=== PATIENT | female | born 1955 | race Caucasian/White ===

== ENCOUNTER 2023-06-23 08:22 | Outpatient (AMB) | payer MEDICARE, OTHER, SELFPAY ==
--- NOTE | 2023-06-23 08:27 | A.OFFVIS_ITS ---
Intake Vital Signs 06/23/23 08:29 Height 5 ft 6 in Weight 149 lb 7.574 oz BMI 24.1 BP 140/82 H Blood Pressure Location Rt brachial Position Sitting Pulse 69 Pulse Source Pulse Oximeter Temp 97.4 F Temp Source Skin Pulse Oximetry (%) 96 Oxygen Delivery Method Room Air Intake Visit Reasons: RA Intake Note: New pt presents today for RA consult. Previously seen by MEGAN and Kristopher Austin. Insurance Healthcare Consultant Required: No Accompanied by: Self / Same As Patient Allergies Bee Stings Adverse Reaction (Unknown, Uncoded 06/23/23 08:32) Swelling Medication List - Last Reconciled 06/23/23 by Golden Ling MD Humira(CF) Pen (adalimumab) 40 mg (0.4 mL) subcut Q2W NS ibandronate 150 mg PO Q30D ibuprofen 600 mg PO Q8H PRN levothyroxine 75 mcg PO DAILY lisinopril 20 mg PO DAILY sertraline mg PO silver sulfadiazine 1% appl topical BID HPI HPI Comments History of Present Illness Details This is a 68-year-old female with rheumatoid arthritis who presents as a new patient. Her previous member of the legislative assembly left the practice. Patient states that she was [place] [address] Keyes. Symptoms started with pain, stiffness of her wrists, knuckles, ankles, neck and elbows. Stated that she was on hydroxychloroquine for 1-2 years and it was ineffective. Per patient she was briefly on methotrexate, states that she was also very briefly on it, she could not take it due to regular alcohol consumption as well as possible side effects. She has been on Humira since approximately 2016 with good effect. Today patient states that she feels well overall with no joint pain, stiffness or swelling. Compliant with Humira 40 mg every other week. States that she was diagnosed with osteoporosis a few years ago and has been on Boniva for 3-4 years. She denies any fevers, weight change, cough or shortness of breath. She smoked socially for 2-3 years in her late 20s. Patient is unaware of any family history of an autoimmune rheumatic disease. 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 Female Reproductive History Menstrual Total pregnancies: 4 Number of Living Children: 2 Ab spontaneous: 2 Review of Systems Const Reports fatigue, Denies fever(s), Reports headache(s) and Denies weight loss Eyes Reports dry eyes and Reports itchy eyes ENT Reports headache(s) GI Reports heartburn Musc Denies stiffness Neuro Reports headache(s) Psych Reports anxiety Endo Reports fatigue Aller/Immun Reports itchy eyes Physical Exam Vital Signs: Last Vital Signs Temp 97.4 F 06/23/23 08:29 Pulse 69 06/23/23 08:29 BP 140/82 H 06/23/23 08:29 Pulse Ox 96 06/23/23 08:29 Oxygen Delivery Method Room Air 06/23/23 08:29 BMI result Body Mass Index 24.1 Const General: cooperative, healthy appearing and comfortable Nutritional Appearance: average body habitus Orientation/consciousness: patient oriented x3 Limitations: no limitations HEENT Head: Yes normocephalic and Yes atraumatic Mouth: moist mucous membranes Resp Effort & Inspection: normal respiratory effort and able to speak in complete sentences Auscultation: clear to auscultation bilaterally Cardio Rate: regular rate Rhythm: regular rhythm GI Inspection: No distended Palpation (GI): Soft to palpation and nontender Skin General skin exam: no rashes or lesions noted Neuro General: patient oriented x3 Extrem Other: Osteoarthritic changes of both hands with no active synovitis Mild synovial thickening of left 1st MCP hand right 3rd MCP without active synovitis Mild ulnar deviation of right hand fingers at the MCP joint Few hammertoes of the right foot Assessment & Plan Assessment & Plan (1) Rheumatoid arthritis: Comment: Serology unknown dx 2009 HCQ 1-2 years ineffective MTX briefly (unclear what happened) Humira since 2016, effective Code(s): M06.9 - Rheumatoid arthritis, unspecified Qualifiers: Rheumatoid arthritis location: multiple sites Rheumatoid factor presence: unspecified presence Qualified Code(s): M06.9 - Rheumatoid arthritis, unspecified Plan: This is a 68-year-old female with rheumatoid arthritis who presents as a new patient. Her previous member of the legislative assembly left the practice. Patient is doing well on Humira 40 mg every other week Continue Humira 40 mg every other week. Refilled. Check labs today. Follow-up in 3 months (2) Immunization counseling: Code(s): Z71.85 - Encounter for immunization safety counseling Plan: Patient states that she received the most recent COVID booster. She will schedule her flu vaccine for this season (3) Osteoporosis: Code(s): M81.0 - Age-related osteoporosis without current pathological fracture Qualifiers: Osteoporosis type: age-related Presence of current pathological fracture: without current pathological fracture Qualified Code(s): M81.0 - Age- related osteoporosis without current pathological fracture Plan: Per patient she has been on Boniva for the last 3-4 years. Needs refills Boniva 150 mg monthly refilled. Will request DEXA scans from patient's PCP Plan I spent 47 minutes reviewing patient's chart, evaluating patient, ordering diagnostic workup, counseling patient and documenting in the chart Orders: Orders Complete Blood Count Auto Diff Today M06.9 - Rheumatoid arthritis, unspecified Comprehensive Met. Panel Today M06.9 - Rheumatoid arthritis, unspecified C Reactive Protein Today M06.9 - Rheumatoid arthritis, unspecified Erythrocyte Sedimentation Rate Today M06.9 - Rheumatoid arthritis, unspecified Rheumatoid Factor Today M06.9 - Rheumatoid arthritis, unspecified Hepatitis A,B,C Profile Today Z11.59 - Encounter for screening for other viral diseases T Spot TB Today Z11.7 - Encounter for testing for latent tuberculosis infection Cyclic Citrullinated Peptide Today M06.9 - Rheumatoid arthritis, unspecified Medications: New Humira(CF) Pen (adalimumab) 40 mg (0.4 mL) subcut Q2W 2 ea 2RF NS ibandronate 150 mg PO Q30D 3 tabs 1RF Coding Level of Care Code New Pt Level 4 (77528) Diagnoses Rheumatoid arthritis involving multiple sites, unspecified whether rheumatoid factor present M06.9 Rheumatoid arthritis location: multiple sites Rheumatoid factor presence: unspecified presence Immunization counseling Z71.85 Age-related osteoporosis without current pathological fracture M81.0 Osteoporosis type: age-related Presence of current pathological fracture: without current pathological fracture
[2023-06-23 08:29] VITALS: BP 140/82; PULSE 69; TEMP 36.3; O2SAT 96; BMI 24.1
== END 2023-06-23 09:07 | disposition home or self-care (01) ==
PROVIDERS: PCP Family Medicine; Visit Provider Student in an Organized Health Care Education/Training Program
DX: M06.9 Rheumatoid arthritis, unspecified (principal); Z71.85 Encounter for immunization safety counseling; M81.0 Age-related osteoporosis without current pathological fracture
CPT/HCPCS: 99204

== ENCOUNTER 2023-06-23 09:13 | Outpatient (REF) | payer MEDICARE, OTHER, SELFPAY ==
[2023-06-23 10:46] LABS: MANUAL DIFF FLAG NO
[2023-06-23 10:53] LABS: Basophils Absolute Auto 0.1 X10*3/uL (0.0-0.2); Basophils Percent Auto 2.1 % (0-2); Eosinophils Absolute Auto 0.3 X10*3/uL (0.0-0.4); Eosinophils Percent Auto 4.4 % (0-4); Hematocrit 37.7 % (37.0-47.0); Hemoglobin 12.3 g/dl (12.0-16.0); Imm Gran Abs Auto 0.02 X10*3/uL (0.00-0.03); Imm Gran Pct Auto 0.3 % (0.0-0.4); Lymphocytes Absolute Auto 1.9 X10*3/uL (1.2-4.9); Lymphocytes Percent Auto 28.8 % (20-40); Mean Corpuscular HGB Conc 32.6 g/dl (31.0-35.0); Monocytes Absolute Auto 0.8 X10*3/uL (0.1-1.2); Monocytes Percent Auto 12.7 % (2-11); Neutrophils Absolute Auto 3.4 x10*3/uL (2.0-8.3); Neutrophils Percent Auto 51.7 % (45-73); Platelet Count 326 X10*3/uL (160-400); Red Blood Count 3.97 X10*6/uL (4.20-5.50); Red Cell Distribution Width 13.2 % (11.0-16.0); White Blood Count 6.6 X10*3/uL (4.8-10.8)
[2023-06-23 11:04] LABS: Rheumatoid Factor 20.6 IU/mL (<15.0)
[2023-06-23 11:10] LABS: Alanine Aminotransferase 11 U/L (0-31); Albumin Level 4.4 g/dL (3.5-5.0); Alkaline Phosphatase 44 U/L (39-117); Anion Gap 13 (12-20); Aspartate Amino Transferase 14 U/L (5-31); Bilirubin Total 0.6 mg/dL (0.0-1.0); Blood Urea Nitrogen 17 mg/dL (9-16); C Reactive Protein 0.17 mg/dL (< or = 0.50); Calcium 9.2 mg/dL (8.4-10.2); Carbon Dioxide 26 mmol/L (22-29); Chloride 104 mmol/L (96-108); Estimated Glomerular Filt Rate > 60; Glucose Random 107 mg/dL (60-115); Sodium 139 mmol/L (135-145); Total Protein 7.7 g/dL (6.5-8.0)
[2023-06-23 11:30] LABS: Erythrocyte Sedimentation Rate 14 MM/HR (0-20)
[2023-06-23 11:44] LABS: HBS Num1 0.35 mIU/mL (0-7.99); HBc Num1 0.11 S/CO (0.00-0.79); HBsAGNum1 0.56 S/CO (0.00-0.99); Hepatitis B Core Antibody Nonreactive (Nonreactive); Hepatitis B Surface Antigen Negative (Negative); ~HepC Num1 0.16 S/CO (0.00-0.79); ~Hepatitis A Antibody IgM Nonreactive (Nonreactive); ~Hepatitis B Surface Antibody NONREACTIVE (Nonreactive); ~Hepatitis C Antibody Nonreactive (Nonreactive)
[2023-06-24 12:38] LABS: Cyclic Citrullinated Peptide 40 UNITS
[2023-06-25 19:23] LABS: TS Negative Control Passed; TS Panel A 0; TS Panel B 0; TS Positive Control Passed; TSpotTB Negative (Negative)
== END 2023-06-23 09:14 | disposition home or self-care (01) ==
LOC: HO.10HDL 09:13
PROVIDERS: Visit Provider Student in an Organized Health Care Education/Training Program
DX: M06.9 Rheumatoid arthritis, unspecified (principal); Z11.59 Encounter for screening for other viral diseases; Z11.7 Encounter for testing for latent tuberculosis infection; Z72.89 Other problems related to lifestyle
CPT/HCPCS: 36415; 80053; 85025; 85652; 86140; 86200; 86431; 86481; 86704; 86706; 86709; 86803; 87340; 99202

== ENCOUNTER 2023-09-23 13:38 | Outpatient (AMB) | payer MEDICARE, OTHER, SELFPAY ==
--- NOTE | 2023-09-23 13:31 | A.OFFVIS_ITS ---
Intake Vital Signs 09/23/23 13:39 Height 5 ft 6 in Weight 142 lb 10.225 oz BMI 23.0 BP 124/72 Blood Pressure Location Rt brachial Position Sitting Pulse 105 H Pulse Source Pulse Oximeter Temp 97.8 F Temp Source Skin Pulse Oximetry (%) 99 Oxygen Delivery Method Room Air Intake Visit Reasons: RA Intake Note: Patient last seen 06/03/23 presents today for follow up and test results. Experienced flare up earlier this month with increase in pain, stiffness, and swelling on left wrist and knuckles X2 days. Also had redness, and warmth. Patient tried ibuprofen and tylenol with no relief. Prednisone taper was sent, she felt relief. Today she reports she is better, but now having issues with L hand/arm and R foot/ankle Clay Carman Required: No Accompanied by: Self / Same As Patient Allergies Bee Stings Adverse Reaction (Unknown, Uncoded 09/23/23 13:46) Swelling Medication List - Last Reconciled 09/23/23 by Golden Ling MD bupropion HCl 150 mg PO QAM Humira(CF) Pen (adalimumab) 40 mg (0.4 mL) subcut Q2W NS ibandronate 150 mg PO Q30D ibuprofen 600 mg PO Q8H PRN levothyroxine 75 mcg PO DAILY lisinopril 20 mg PO DAILY pantoprazole 40 mg PO DAILY silver sulfadiazine 1% appl topical BID HPI HPI Comments History of Present Illness Details 68-year-old female with seropositive RA returns for follow-up. On 09/04/2023 patient was diagnosed with strep throat s/p a throat swab around the same time she also started having multiple swollen and tender joints including left wrist, left elbow, left arm, right ankle. She was started on antibiotics with improvement of her sore throat but without improvement of her joints. She called our office and she was prescribed a prednisone taper by Dominique Ashraf with about 80% improvement, the swelling of her left wrist has come down but she continues to have pain, limitation of movement and swelling of her left elbow and right ankle. This is her 1st flare in about 1 year. She continues to take Humira every other week Initial history: This is a 68-year-old female with seropositive rheumatoid arthritis who presents as a new patient. 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 Patient states that she was diagnosed in [address] Keyes. Symptoms started with pain, stiffness of her wrists, knuckles, ankles, neck and elbows. Stated that she was on hydroxychloroquine for 1-2 years and it was ineffective. Per patient she was briefly on methotrexate, states that she was also very briefly on it, she could not take it due to regular alcohol consumption as well as possible side effects. She has been on Humira since approximately 2016 with good effect. Today patient states that she feels well overall with no joint pain, stiffness or swelling. Compliant with Humira 40 mg every other week. States that she was diagnosed with osteoporosis a few years ago and has been on Boniva for 3-4 years. She denies any fevers, weight change, cough or shortness of breath. She smoked socially for 2-3 years in her late 20s. Patient is unaware of any family history of an autoimmune rheumatic disease. Denies any history of DVT/PE [facility] Medical History (Updated 09/23/23 @ 14:11 by Golden Ling MD) Basal cell carcinoma Anaplasmosis Rheumatoid arthritis Pleural effusion Osteoporosis Chronic hypertension Surgical History H/O cone biopsy of cervix Hx of colonoscopy Family History Mother Osteoporosis Hypertension Breast cancer Father Hypertension Myocardial infarction Social History Household Members: Significant Other Alcohol intake: current Alcohol intake frequency: a few times a week Alcohol type: wine Patient Tobacco Use Status: Former Tobacco user Current occupational status: retired 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 Review of Systems ENT Denies sore throat Musc Reports arthralgias, Reports joint swelling, Reports limited range of motion and Reports stiffness Physical Exam Const General: cooperative, healthy appearing and comfortable Nutritional Appearance: average body habitus Orientation/consciousness: patient oriented x3 Limitations: no limitations HEENT Head: Yes normocephalic and Yes atraumatic Mouth: moist mucous membranes Resp Effort & Inspection: normal respiratory effort and able to speak in complete sentences Auscultation: clear to auscultation bilaterally Cardio Rate: regular rate Rhythm: regular rhythm GI Inspection: No distended Palpation (GI): Soft to palpation and nontender Skin General skin exam: no rashes or lesions noted Neuro General: patient oriented x3 Extrem Other: Osteoarthritic changes of both hands Left elbow held in a semi-flexed position with some warmth and pain with range of motion Mildly limited flexion and extension of both wrists Left wrist tenderness Mild ulnar deviation of right hand fingers at the MCP joint Right ankle swelling warmth and tenderness Few hammertoes of the right foot Assessment & Plan Assessment & Plan (1) Rheumatoid arthritis: Comment: +RF++CCP dx 2009 HCQ 1-2 years ineffective MTX briefly (patient has self discontinued it) Enbrel secondary nonresponse Humira since 2016, effective Code(s): M06.9 - Rheumatoid arthritis, unspecified Qualifiers: Rheumatoid arthritis location: multiple sites Rheumatoid factor presence: unspecified presence Qualified Code(s): M06.9 - Rheumatoid arthritis, unspecified Plan: This is a 68-year-old female with rheumatoid arthritis who presents for follow- up. Patient is having an RA flare likely triggered by strep throat infection. Her infection has resolved with antibiotics but her her infection has resolved with antibiotics however she continues to have synovitis affecting multiple mary anne ints. She received a 7 day course of prednisone which is likely inadequate. Will prescribe a longer prednisone taper. Left elbow was injected by Dr. keyes in the past Continue Humira 40 mg every other week. Labs before next visit in 3 months (2) Osteoporosis: Code(s): M81.0 - Age-related osteoporosis without current pathological fracture Qualifiers: Osteoporosis type: age-related Presence of current pathological fracture: without current pathological fracture Qualified Code(s): M81.0 - Age- related osteoporosis without current pathological fracture Plan: Per patient she has been on Boniva for the last 3-4 years. Most recent DEXA scan was in 2021. Patient needs a repeat bone density scan. Ordered. I asked patient to send me her initial DEXA scan. (3) Basal cell carcinoma: Comment: Upper lip Precancerous per patient. S/p excision Code(s): C44.91 - Basal cell carcinoma of skin, unspecified Qualifiers: Basal cell carcinoma location: face Basal cell carcinoma face location: lip Qualified Code(s): C44.01 - Basal cell carcinoma of skin of lip Plan: Pre cancerous per patient. S/p excision. Per notes, Dr. Ortiz has discussed this with patient's character impersonator and the decision was made to continue with Humira. Advised yearly skin exam Plan I spent 47 minutes reviewing patient's chart, evaluating patient, ordering diagnostic workup, counseling patient and documenting in the chart Orders: Orders C Reactive Protein 3 Months C44.91 - Basal cell carcinoma of skin, unspecified, M06.9 - Rheumatoid arthritis, unspecified Erythrocyte Sedimentation Rate 3 Months C44.91 - Basal cell carcinoma of skin, unspecified, M06.9 - Rheumatoid arthritis, unspecified XR DEXA axial skeleton Today M81.0 - Age-related osteoporosis without current pathological fracture Complete Blood Count Auto Diff 3 Months C44.91 - Basal cell carcinoma of skin, unspecified, M06.9 - Rheumatoid arthritis, unspecified Comprehensive Met. Panel 3 Months C44.91 - Basal cell carcinoma of skin, unspecified, M06.9 - Rheumatoid arthritis, unspecified Medications: Changed From prednisone 2 tablets per day x 5 days then 1 tablet per day x 5 days and stop. 20 tabs 0RF To prednisone Take 3 tabs daily for 1 week then 2 tabs daily for 1 week then 1 tab daily for 1 week then stop 42 tabs 0RF Coding Level of Care Code Est Pt Level 4 (59445) Diagnoses Rheumatoid arthritis involving multiple sites, unspecified whether rheumatoid factor present M06.9 Rheumatoid arthritis location: multiple sites Rheumatoid factor presence: unspecified presence Age-related osteoporosis without current pathological fracture M81.0 Osteoporosis type: age-related Presence of current pathological fracture: without current pathological fracture Basal cell carcinoma (BCC) of skin of lip C44.01 Basal cell carcinoma location: face Basal cell carcinoma face location: lip
[2023-09-23 13:39] VITALS: BP 124/72; PULSE 105; TEMP 36.6; O2SAT 99; BMI 23.0
== END 2023-09-23 14:03 | disposition home or self-care (01) ==
PROVIDERS: PCP Family Medicine; Visit Provider Student in an Organized Health Care Education/Training Program
DX: M06.9 Rheumatoid arthritis, unspecified (principal); M81.0 Age-related osteoporosis without current pathological fracture; C44.01 Basal cell carcinoma of skin of lip
CPT/HCPCS: 99214

== ENCOUNTER → 2023-09-23 13:38 | Outpatient (BNVA) | payer MEDICARE, OTHER, SELFPAY | PROVIDERS: PCP Family Medicine; Visit Provider Student in an Organized Health Care Education/Training Program | DX: M06.9 Rheumatoid arthritis, unspecified (principal); M81.0 Age-related osteoporosis without current pathological fracture; C44.01 Basal cell carcinoma of skin of lip | CPT/HCPCS: 99212 ==

== ENCOUNTER 2023-10-22 13:34 | Outpatient (REF) | payer MEDICARE, OTHER, SELFPAY ==
--- NOTE | ~2023-10-22 | MM_ITS ---
EXAMINATION: BONE DENSITOMETRY CLINICAL INDICATION: Age-related osteoporosis without current pathological fracture. COMPARISON: This is the patient's baseline examination. TECHNIQUE: Using a [employer] DXA System (software version: 13.1) manufactured by [employer], dual-energy x-ray absorptiometry was performed of the lumbar spine and left hip. The images are of good technical quality. Summary results are attached. FINDINGS: LEFT FEMUR, NECK: BMD 0.552 g/cm2, Z-score -1.7, T-score -3.5, osteoporosis. LEFT FEMUR, TOTAL: BMD 0.671 g/cm2, Z-score -1.1, T-score -2.7, osteoporosis. AP SPINE L1-L4: BMD 0.993 g/cm2, Z-score 0.2, T-score -1.6, osteopenia. IDENTIFIED RISK FACTORS: Menopause, rheumatoid arthritis, secondary osteoporosis (hyperthyroidism). HISTORY OF FRACTURE: None listed. MEDICATIONS: Calcium, vitamin D, bisphosphonate. MM/XR DEXA axial skeleton IMPRESSION: 1. DIAGNOSIS: Osteoporosis based on the lowest T-score value of -3.5 in the femoral neck applying World Health Organization criteria. 2. 10-YEAR FRACTURE RISK PREDICTION, FRAX: According to the guidelines, FRAX calculation should only be performed on patients in the osteopenia bone density category. Therefore, FRAX was not performed on this patient. 3. Treatment Recommendations: NOF guidelines recommend consideration for treatment in postmenopausal women and men age 50 and older presenting with the following: -A hip or vertebral (clinical or morphometric) fracture. -T-score less than or equal to -2.5 at the femoral neck or spine after appropriate evaluation to exclude secondary causes. -Low bone mass at the hip or spine and a 10-year fracture probability by FRAX of greater than or equal to 3% for hip fracture or greater than or equal to 20% for major osteoporotic fracture based on the [place] adapted WHO algorithm. 4. Other Recommendations: All treatment decisions require clinical judgment and consideration of individual patient factors, including patient preferences, comorbidities, previous drug use, risk factors not captured in the FRAX model (e.g. frailty, falls, vitamin D deficiency, increased bone turnover, interval significant decline in bone density) and possible under or overestimation of fracture risk by FRAX. Additional medical evaluation for secondary cause of low bone mineral density may be appropriate. FUTURE SCAN RECOMMENDATION: People with diagnosed cases of osteoporosis or at high risk for fracture should have regular bone mineral density tests. For patients eligible for Medicare, routine testing is allowed once every 2 years. The testing frequency can be increased to one year for patients who have rapidly progressing disease, those who are receiving or discontinuing medical therapy to restore bone mass, or have additional risk factors.
[2023-10-22 14:08] LABS: MANUAL DIFF FLAG NO
[2023-10-22 15:14] LABS: Basophils Absolute Auto 0.1 X10*3/uL (0.0-0.2); Basophils Percent Auto 1.3 % (0-2); Eosinophils Absolute Auto 0.2 X10*3/uL (0.0-0.4); Eosinophils Percent Auto 3.1 % (0-4); Hematocrit 33.5 % (37.0-47.0); Imm Gran Abs Auto 0.04 X10*3/uL (0.00-0.03); Imm Gran Pct Auto 0.6 % (0.0-0.4); Lymphocytes Absolute Auto 1.8 X10*3/uL (1.2-4.9); Lymphocytes Percent Auto 29.7 % (20-40); Mean Corpuscular HGB Conc 32.8 g/dl (31.0-35.0); Mean Corpuscular Hemoglobin 30.4 pg (27.0-33.0); Mean Corpuscular Volume 92.5 fL (80.0-98.0); Mean Platelet Volume 10.2 fL (9.4-12.3); Monocytes Absolute Auto 0.7 X10*3/uL (0.1-1.2); Monocytes Percent Auto 11.5 % (2-11); Neutrophils Absolute Auto 3.3 x10*3/uL (2.0-8.3); Neutrophils Percent Auto 53.8 % (45-73); Platelet Count 302 X10*3/uL (160-400); Red Blood Count 3.62 X10*6/uL (4.20-5.50); Red Cell Distribution Width 12.5 % (11.0-16.0); White Blood Count 6.2 X10*3/uL (4.8-10.8)
[2023-10-22 15:54] LABS: C Reactive Protein 0.23 mg/dL (< or = 0.50); Erythrocyte Sedimentation Rate 37 MM/HR (0-20); Uric Acid 4.8 mg/dL (2.4-5.7)
== END 2023-10-22 13:35 | disposition home or self-care (01) ==
LOC: HO.MAMMO 13:34
PROVIDERS: Nurse Practitioner Family; PCP Family Medicine; Visit Provider Student in an Organized Health Care Education/Training Program
DX: Z13.820 Encounter for screening for osteoporosis (principal); Z78.0 Asymptomatic menopausal state; M81.0 Age-related osteoporosis without current pathological fracture; M06.9 Rheumatoid arthritis, unspecified; M79.89 Other specified soft tissue disorders
CPT/HCPCS: 36415; 77080; 84550; 85025; 85652; 86140

== ENCOUNTER 2023-12-16 14:20 | Outpatient (REF) | payer MEDICARE, OTHER, SELFPAY | END 2023-12-16 14:21 | disposition home or self-care (01) | LOC: HO.LAB 14:20 | PROVIDERS: PCP Family Medicine; Visit Provider Student in an Organized Health Care Education/Training Program | DX: M06.9 Rheumatoid arthritis, unspecified (principal); M81.0 Age-related osteoporosis without current pathological fracture; C44.01 Basal cell carcinoma of skin of lip | CPT/HCPCS: 99212 ==

== ENCOUNTER 2023-12-16 14:20 | Outpatient (AMB) | payer MEDICARE, OTHER, SELFPAY ==
--- NOTE | 2023-12-16 14:21 | MHC.OFFVIS ---
Vital Signs 12/16/23 14:41 Height 5 ft 6 in Weight 141 lb 8.588 oz BMI 22.8 BP 92/60 Blood Pressure Location Rt brachial Position Sitting Pulse 86 Pulse Source Pulse Oximeter Pulse Oximetry (%) 98 Oxygen Delivery Method Room Air Intake Visit Reasons: RA Intake Note: Patient last seen 09/23/23 presents today for follow up and test results. Allergies Bee Stings Adverse Reaction (Unknown, Uncoded 12/16/23 14:39) Swelling Medication List - Last Reconciled 12/16/23 by Golden Ling MD bupropion HCl XL 150 mg PO QAM Humira(CF) Pen (adalimumab) 40 mg (0.4 mL) subcut Q2W NS ibandronate 150 mg PO Q30D ibuprofen 600 mg PO Q8H PRN levothyroxine 75 mcg PO DAILY lisinopril 20 mg PO DAILY pantoprazole 40 mg PO DAILY silver sulfadiazine 1% appl topical BID HPI Comments Details: 68-year-old female with seropositive RA returns for follow-up. Last visit patient had a strep throat and that seemed to have caused an RA flare, it resolved with a relatively on prednisone taper. Now she is back to her baseline. She remains on Humira every other week. She has no complaints today. Initial history: This is a 68-year-old female with seropositive rheumatoid arthritis who presents as a new patient. Her previous laboratory inspector left the practice. Patient states that she was [place] [address] Keyes. Symptoms started with pain, stiffness of her wrists, knuckles, ankles, neck and elbows. Stated that she was on hydroxychloroquine for 1-2 years and it was ineffective. Per patient she was briefly on methotrexate, states that she was also very briefly on it, she could not take it due to regular alcohol consumption as well as possible side effects. She has been on Humira since approximately 2016 with good effect. Today patient states that she feels well overall with no joint pain, stiffness or swelling. Compliant with Humira 40 mg every other week. States that she was diagnosed with osteoporosis a few years ago and has been on Boniva for 3-4 years. She denies any fevers, weight change, cough or shortness of breath. She smoked socially for 2-3 years in her late 20s. Patient is unaware of any family history of an autoimmune rheumatic disease. 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 Female Reproductive History Menstrual Total pregnancies: 4 Number of Living Children: 2 Ab spontaneous: 2 Review of Systems Musc Denies arthralgias, Denies joint swelling and Denies stiffness Physical Exam Vital Signs: Last Vital Signs Pulse 86 12/16/23 14:41 BP 92/60 12/16/23 14:41 Pulse Ox 98 12/16/23 14:41 Oxygen Delivery Method Room Air 12/16/23 14:41 BMI result Body Mass Index 22.8 Const General: cooperative, healthy appearing and comfortable Nutritional Appearance: average body habitus Orientation/consciousness: patient oriented x3 Limitations: no limitations HEENT Head: Yes normocephalic and Yes atraumatic Mouth: moist mucous membranes Resp Effort & Inspection: normal respiratory effort and able to speak in complete sentences Auscultation: clear to auscultation bilaterally Cardio Rate: regular rate Rhythm: regular rhythm GI Inspection: No distended Palpation (GI): Soft to palpation and nontender Skin General skin exam: no rashes or lesions noted Neuro General: patient oriented x3 Extrem Other: Osteoarthritic changes of both hands No active synovitis today Few hammertoes of the right foot Results Reviewed Results Reviewed: DEXA 07/2021? L-spine T-score-1.8? Right femoral neck T-score -3.0? Right total hip T-score -2.0 EXAMINATION:? BONE DENSITOMETRY CLINICAL INDICATION:? Age-related osteoporosis without current pathological fracture. COMPARISON:? This is the patient's baseline examination. TECHNIQUE: Using a [employer] DXA System (software version: 13.1) manufactured by [employer], dual-energy x-ray absorptiometry was performed of the lumbar spine and left hip. The images are of good technical quality. Summary results are attached. FINDINGS: LEFT FEMUR, NECK: BMD 0.552 g/cm2, Z-score -1.7, T-score -3.5, osteoporosis. LEFT FEMUR, TOTAL: BMD 0.671 g/cm2, Z-score -1.1, T-score -2.7, osteoporosis. AP SPINE L1-L4:? BMD 0.993 g/cm2, Z-score 0.2, T-score -1.6, osteopenia. IDENTIFIED RISK FACTORS:? Menopause, rheumatoid arthritis, secondary osteoporosis (hyperthyroidism).? HISTORY OF FRACTURE:? None listed.? MEDICATIONS:? Calcium, vitamin D, bisphosphonate.? MM/XR DEXA axial skeleton IMPRESSION: 1. DIAGNOSIS: Osteoporosis based on the lowest T-score value of -3.5 in the femoral neck applying World Health Organization criteria.?? Assessment & Plan Assessment & Plan (1) Rheumatoid arthritis: Comment: +RF++CCP dx 2010 HCQ 1-2 years ineffective MTX briefly (patient has self discontinued it) Enbrel secondary nonresponse Humira since 2016, effective Code(s): M06.9 - Rheumatoid arthritis, unspecified Category: Medical Qualifiers: Rheumatoid arthritis location: multiple sites Rheumatoid factor presence: unspecified presence Qualified Code(s): M06.9 - Rheumatoid arthritis, unspecified Plan: This is a 68-year-old female with rheumatoid arthritis who presents for follow-up. Doing quite well with no active synovitis on Humira 40 mg every other week Continue Humira 40 mg every other week. Labs before next visit in 4 months (2) Osteoporosis: Comment: DEXA 07/2021 L-spine T-score-1.8 Right femoral neck T-score -3.0 Right total hip T-score -2.0 DEXA 09/2023 T-score -3.5 LEFT FEMUR, TOTAL: T-score -2.7, osteoporosis. AP SPINE L1-L4: T-score -1.6, osteopenia. Boniva started Code(s): M81.0 - Age-related osteoporosis without current pathological fracture Category: Medical Qualifiers: Osteoporosis type: age-related Presence of current pathological fracture: without current pathological fracture Qualified Code(s): M81.0 - Age-related osteoporosis without current pathological fracture Plan: Most recent bone density showed worsening T-score. She has been on Boniva for 3-4 years without much improvement. Her lowest T-score is-3.5 which is considered severe. Will need to change to an anabolic agent. Discussed risks and benefits of Forteo/Tymlos. Patient agreed to proceed. Will start prior authorization for Tymlos. (3) Basal cell carcinoma: Comment: Upper lip Precancerous per patient. S/p excision Code(s): C44.91 - Basal cell carcinoma of skin, unspecified Category: Medical Qualifiers: Basal cell carcinoma location: face Basal cell carcinoma face location: lip Qualified Code(s): C44.01 - Basal cell carcinoma of skin of lip Plan: Pre cancerous per patient. S/p excision. Per notes, Dr. Ortiz has discussed this with patient's supervisor pastry and the decision was made to continue with Humira. Advised yearly skin exam Plan I spent 47 minutes reviewing patient's chart, evaluating patient, ordering diagnostic workup, counseling patient and documenting in the chart Orders: Orders Collagen Type I C-Telopeptide Today M81.0 - Age-related osteoporosis without current pathological fracture Comprehensive Met. Panel Today M81.0 - Age-related osteoporosis without current pathological fracture Protein Electrophoresis, Serum Today M81.0 - Age-related osteoporosis without current pathological fracture Phosphorus Today M81.0 - Age-related osteoporosis without current pathological fracture Vitamin D 25-OH Total Today M81.0 - Age-related osteoporosis without current pathological fracture Complete Blood Count Auto Diff 4 Months M06.9 - Rheumatoid arthritis, unspecified Comprehensive Met. Panel 4 Months M06.9 - Rheumatoid arthritis, unspecified C Reactive Protein 4 Months M06.9 - Rheumatoid arthritis, unspecified Erythrocyte Sedimentation Rate 4 Months M06.9 - Rheumatoid arthritis, unspecified Parathyroid Hormone Intact Today M81.0 - Age-related osteoporosis without current pathological fracture TSH reflex Free T4 Today M81.0 - Age-related osteoporosis without current pathological fracture Coding Level of Care Code Est Pt Level 5 (27299) Complex EM visit Add On G2211 Diagnoses Rheumatoid arthritis involving multiple sites, unspecified whether rheumatoid factor present M06.9 Rheumatoid arthritis location: multiple sites Rheumatoid factor presence: unspecified presence Age-related osteoporosis without current pathological fracture M81.0 Osteoporosis type: age-related Presence of current pathological fracture: without current pathological fracture Basal cell carcinoma (BCC) of skin of lip C44.01 Basal cell carcinoma location: face Basal cell carcinoma face location: lip
[2023-12-16 14:41] VITALS: BP 92/60; PULSE 86; O2SAT 98; BMI 22.8
== END 2023-12-16 14:55 | disposition home or self-care (01) ==
LOC: HO.RHE 14:20
PROVIDERS: PCP Family Medicine; Visit Provider Student in an Organized Health Care Education/Training Program
DX: M06.9 Rheumatoid arthritis, unspecified (principal); M81.0 Age-related osteoporosis without current pathological fracture; C44.01 Basal cell carcinoma of skin of lip
CPT/HCPCS: 99214; G2211

== ENCOUNTER 2023-12-25 09:47 | Outpatient (REF) | payer MEDICARE, OTHER, SELFPAY ==
[2023-12-25 09:57] LABS: MANUAL DIFF FLAG NO
[2023-12-25 10:30] LABS: Basophils Absolute Auto 0.1 X10*3/uL (0.0-0.2); Basophils Percent Auto 1.4 % (0-2); Eosinophils Absolute Auto 0.4 X10*3/uL (0.0-0.4); Eosinophils Percent Auto 5.3 % (0-4); Hematocrit 37.3 % (37.0-47.0); Hemoglobin 12.1 g/dl (12.0-16.0); Imm Gran Abs Auto 0.03 X10*3/uL (0.00-0.03); Imm Gran Pct Auto 0.4 % (0.0-0.4); Lymphocytes Absolute Auto 1.9 X10*3/uL (1.2-4.9); Lymphocytes Percent Auto 24.1 % (20-40); Mean Corpuscular HGB Conc 32.4 g/dl (31.0-35.0); Mean Corpuscular Hemoglobin 30.5 pg (27.0-33.0); Mean Platelet Volume 9.7 fL (9.4-12.3); Monocytes Absolute Auto 0.8 X10*3/uL (0.1-1.2); Monocytes Percent Auto 10.5 % (2-11); Neutrophils Absolute Auto 4.7 x10*3/uL (2.0-8.3); Neutrophils Percent Auto 58.3 % (45-73); Platelet Count 317 X10*3/uL (160-400); Red Blood Count 3.97 X10*6/uL (4.20-5.50); Red Cell Distribution Width 13.2 % (11.0-16.0)
[2023-12-25 11:24] LABS: Erythrocyte Sedimentation Rate 13 MM/HR (0-20)
[2023-12-25 11:30] LABS: Parathyroid Hormone Intact 75.7 pg/mL (8.7-77.1)
[2023-12-25 11:31] LABS: Alanine Aminotransferase 13 U/L (0-31); Albumin Level 4.3 g/dL (3.5-5.0); Alkaline Phosphatase 43 U/L (39-117); Anion Gap 15 (12-20); Aspartate Amino Transferase 15 U/L (5-31); Bilirubin Total 0.5 mg/dL (0.0-1.0); Blood Urea Nitrogen 24 mg/dL (9-16); C Reactive Protein 0.16 mg/dL (< or = 0.50); Calcium 9.5 mg/dL (8.4-10.2); Carbon Dioxide 25 mmol/L (22-29); Chloride 106 mmol/L (96-108); Estimated Glomerular Filt Rate > 60; Glucose Random 94 mg/dL (60-115); Phosphorus 3.1 mg/dL (2.7-4.5); Potassium 4.4 mmol/L (3.3-5.1); Sodium 142 mmol/L (135-145); Total Protein 7.4 g/dL (6.5-8.0)
[2023-12-25 11:49] LABS: TSH reflex Free T4 0.86 uIU/mL (0.32-4.0); Vitamin D 25-OH Total 47.7 ng/mL (>30)
[2023-12-29 21:29] LABS: Prot Elec - Albumin 4.3 g/dL (3.8-4.8); Prot Elec - Alpha1 0.2 g/dL (0.2-0.3); Prot Elec - Alpha2 0.6 g/dL (0.5-0.9); Prot Elec - Beta 1 0.5 g/dL (0.4-0.6); Prot Elec - Beta 2 0.4 g/dL (0.2-0.5); Prot Elec - Gamma 0.9 g/dL (0.8-1.7); Prot Elec - Total Protein 6.9 g/dL (6.1-8.1)
[2024-01-02 15:29] LABS: Collagen Type I C-Telopeptide 140 pg/mL (see note)
== END 2023-12-25 09:48 | disposition home or self-care (01) ==
LOC: HO.LAB 09:47
PROVIDERS: PCP Family Medicine; Visit Provider Student in an Organized Health Care Education/Training Program
DX: M06.9 Rheumatoid arthritis, unspecified (principal); C44.91 Basal cell carcinoma of skin, unspecified; M81.0 Age-related osteoporosis without current pathological fracture
CPT/HCPCS: 36415; 80053; 82306; 82523; 83970; 84100; 84165; 84443; 85025; 85652; 86140

== ENCOUNTER 2024-01-27 13:48 | Outpatient (AMB) | payer MEDICARE, OTHER, SELFPAY ==
[2024-01-27 13:49] VITALS: BP 134/70; PULSE 73; BMI 23.2
--- NOTE | 2024-01-27 13:49 | MHC.OFFVIS ---
Vital Signs 01/27/24 13:49 Height 5 ft 6 in Weight 143 lb 11.862 oz BMI 23.2 BP 134/70 Blood Pressure Location Rt brachial Position Sitting Pulse 73 Pulse Source Pulse Oximeter Intake Visit Reasons: osteoporosis/CONFIRMED Intake Note: Patient last seen 12/16/23 presents today for follow up and test results. Packing Attendant Required: No Accompanied by: Self / Same As Patient Allergies abaloparatide [From Tymlos] Adverse Reaction (Severe, Verified 01/27/24 14:22) Dizziness Bee Stings Adverse Reaction (Unknown, Uncoded 01/27/24 13:51) Swelling Medication List - Last Reconciled 01/27/24 by Golden Ling MD bupropion HCl XL 150 mg PO QAM Humira(CF) Pen (adalimumab) 40 mg (0.4 mL) subcut Q2W NS ibuprofen 600 mg PO Q8H PRN levothyroxine 75 mcg PO DAILY lisinopril 20 mg PO DAILY pantoprazole 40 mg PO DAILY silver sulfadiazine 1% appl topical BID HPI Comments Details: 68-year-old female with seropositive RA and osteoporosis returns for follow-up. She remains on Humira regularly. Doing well with no active synovitis. She used Tymlos for a few days and could not tolerate it due to significant dizziness, room spinning and stress associated with daily injection. She can not continue with it she would like an alternative Initial history: This is a 68-year-old female with seropositive rheumatoid arthritis who presents as a new patient. Her previous degreasing solution mixer left the practice. Patient states that she was diagnosed in [address] Keyes. Symptoms started with pain, stiffness of her wrists, knuckles, ankles, neck and elbows. Stated that she was on hydroxychloroquine for 1-2 years and it was ineffective. Per patient she was briefly on methotrexate, states that she was also very briefly on it, she could not take it due to regular alcohol consumption as well as possible side effects. She has been on Humira since approximately 2016 with good effect. Today patient states that she feels well overall with no joint pain, stiffness or swelling. Compliant with Humira 40 mg every other week. States that she was diagnosed with osteoporosis a few years ago and has been on Boniva for 3-4 years. She denies any fevers, weight change, cough or shortness of breath. She smoked socially for 2-3 years in her late 20s. Patient is unaware of any family history of an autoimmune rheumatic disease. 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 Female Reproductive History Menstrual Total pregnancies: 4 Number of Living Children: 2 Ab spontaneous: 2 Review of Systems Musc Denies arthralgias, Denies joint swelling and Denies stiffness Physical Exam Vital Signs: Last Vital Signs Pulse 73 01/27/24 13:49 BP 134/70 01/27/24 13:49 BMI result Body Mass Index 23.2 Const General: cooperative, healthy appearing and comfortable Nutritional Appearance: average body habitus Orientation/consciousness: patient oriented x3 Limitations: no limitations HEENT Head: Yes normocephalic and Yes atraumatic Resp Effort & Inspection: normal respiratory effort and able to speak in complete sentences Cardio Rate: regular rate Rhythm: regular rhythm GI Inspection: No distended Palpation (GI): Soft to palpation and nontender Skin General skin exam: no rashes or lesions noted Neuro General: patient oriented x3 Extrem Other: Osteoarthritic changes of both hands No active synovitis today Few hammertoes of the right foot Results Reviewed Results Reviewed: DEXA 07/2021? L-spine T-score-1.8? Right femoral neck T-score -3.0? Right total hip T-score -2.0 EXAMINATION:? BONE DENSITOMETRY CLINICAL INDICATION:? Age-related osteoporosis without current pathological fracture. COMPARISON:? This is the patient's baseline examination. TECHNIQUE: Using a [employer] DXA System (software version: 13.1) manufactured by [employer], dual-energy x-ray absorptiometry was performed of the lumbar spine and left hip. The images are of good technical quality. Summary results are attached. FINDINGS: LEFT FEMUR, NECK: BMD 0.552 g/cm2, Z-score -1.7, T-score -3.5, osteoporosis. LEFT FEMUR, TOTAL: BMD 0.671 g/cm2, Z-score -1.1, T-score -2.7, osteoporosis. AP SPINE L1-L4:? BMD 0.993 g/cm2, Z-score 0.2, T-score -1.6, osteopenia. IDENTIFIED RISK FACTORS:? Menopause, rheumatoid arthritis, secondary osteoporosis (hyperthyroidism).? HISTORY OF FRACTURE:? None listed.? MEDICATIONS:? Calcium, vitamin D, bisphosphonate.? MM/XR DEXA axial skeleton IMPRESSION: 1. DIAGNOSIS: Osteoporosis based on the lowest T-score value of -3.5 in the femoral neck applying World Health Organization criteria.?? Assessment & Plan Assessment & Plan (1) Rheumatoid arthritis: Comment: +RF++CCP dx 2010 HCQ 1-2 years ineffective MTX briefly (patient has self discontinued it) Enbrel secondary nonresponse Humira since 2016, effective Code(s): M06.9 - Rheumatoid arthritis, unspecified Category: Medical Qualifiers: Rheumatoid arthritis location: multiple sites Rheumatoid factor presence: unspecified presence Qualified Code(s): M06.9 - Rheumatoid arthritis, unspecified Plan: This is a 68-year-old female with rheumatoid arthritis who presents for follow-up. Doing quite well with no active synovitis on Humira 40 mg every other week Continue Humira 40 mg every other week. Labs before next visit in 3 months (2) Osteoporosis: Comment: DEXA 07/2021 L-spine T-score-1.8 Right femoral neck T-score -3.0 Right total hip T-score -2.0 DEXA 09/2023 T-score -3.5 LEFT FEMUR, TOTAL: T-score -2.7, osteoporosis. AP SPINE L1-L4: T-score -1.6, osteopenia. Boniva started Tymlos 12/2023-DC after few doses due to dizziness & room spinning Code(s): M81.0 - Age-related osteoporosis without current pathological fracture Category: Medical Qualifiers: Osteoporosis type: age-related Presence of current pathological fracture: without current pathological fracture Qualified Code(s): M81.0 - Age-related osteoporosis without current pathological fracture Plan: Most recent bone density showed worsening T-score. She has been on Boniva for 3-4 years without much improvement. Her lowest T-score is-3.5 which is considered severe. We switched her Tymlos. She did Tymlos injections for a few days and could not tolerate it due to significant dizziness, room spinning significant stress associated with daily injection. Forteo would be associated with similar side effects. Discussed risks and benefits of Evenity. Discussed the black box warning of potential minimal increased risk of cardiovascular events. Patient agreed to proceed. Will start prior authorization for Evenity (3) Basal cell carcinoma: Comment: Upper lip Precancerous per patient. S/p excision Code(s): C44.91 - Basal cell carcinoma of skin, unspecified Category: Medical Qualifiers: Basal cell carcinoma location: face Basal cell carcinoma face location: lip Qualified Code(s): C44.01 - Basal cell carcinoma of skin of lip Plan: Pre cancerous per patient. S/p excision. Per notes, Dr. Ortiz has discussed this with patient's trademark attorney and the decision was made to continue with Humira. Advised yearly skin exam Plan I spent 27 minutes reviewing patient's chart, evaluating patient, ordering diagnostic workup, counseling patient and documenting in the chart Coding Level of Care Code Est Pt Level 4 (86543) Diagnoses Rheumatoid arthritis involving multiple sites, unspecified whether rheumatoid factor present M06.9 Rheumatoid arthritis location: multiple sites Rheumatoid factor presence: unspecified presence Age-related osteoporosis without current pathological fracture M81.0 Osteoporosis type: age-related Presence of current pathological fracture: without current pathological fracture Basal cell carcinoma (BCC) of skin of lip C44.01 Basal cell carcinoma location: face Basal cell carcinoma face location: lip
== END 2024-01-27 14:19 | disposition home or self-care (01) ==
PROVIDERS: PCP Family Medicine; Visit Provider Student in an Organized Health Care Education/Training Program
DX: M06.9 Rheumatoid arthritis, unspecified (principal); M81.0 Age-related osteoporosis without current pathological fracture; C44.01 Basal cell carcinoma of skin of lip
CPT/HCPCS: 99214

== ENCOUNTER → 2024-01-27 13:48 | Outpatient (BNVA) | payer MEDICARE, OTHER, SELFPAY | PROVIDERS: PCP Family Medicine; Visit Provider Student in an Organized Health Care Education/Training Program | DX: M81.0 Age-related osteoporosis without current pathological fracture (principal); M06.9 Rheumatoid arthritis, unspecified; C44.01 Basal cell carcinoma of skin of lip; Z79.899 Other long term (current) drug therapy | CPT/HCPCS: 99212 ==

== ENCOUNTER 2024-02-24 09:58 | Outpatient (AMB) | payer MEDICARE, OTHER, SELFPAY ==
--- NOTE | 2024-02-24 10:20 | AM.OFFVISNUR ---
Intake Visit Reasons: Evenity #1 Allergies abaloparatide [From Tymlos] Adverse Reaction (Severe, Verified 01/27/24 14:22) Dizziness Bee Stings Adverse Reaction (Unknown, Uncoded 01/27/24 13:51) Swelling Office Meds romosozumab-aqqg 210 mg/2.34 mL(105 mg/1.17 mL x2)subcutaneous syringe Performing Provider: Golden Ling MD Performing Location: [facility] [place] [facility] Administered by: Courtney Suh RN on 02/24/24 10:20 Dose Route Admin Location Dispensed Lot Number Expiration Date [facility] Traveling Clerk 210 mg subcut bilateral upper arms 2.34 mL [id number] 01/23/26 51490-543-74 [facility]GEN Comments: Consent form signed. Pt tolerated injection well. Pt monitored for 15 minutes following injection. Pt advised to watch out for site reactions. Pt advised if this were to occur to sofie the area and date/time. Pt advised to take photos and let us know if area goes outside marked area and to call our office. Pt aware. Assessment & Plan Assessment & Plan Orders: Orders AMB Romosozumab Injection Patient Supplied Today M81.0 - Age-related osteoporosis without current pathological fracture Medications: New romosozumab-aqqg 210 mg (2.34 mL) subcut ONCE 2.34 mL 0RF M81.0 - Age-related osteoporosis without current pathological fracture
== END 2024-02-24 10:09 | disposition home or self-care (01) ==
PROVIDERS: PCP Family Medicine
DX: M81.0 Age-related osteoporosis without current pathological fracture (principal)

== ENCOUNTER → 2024-02-24 09:58 | Outpatient (BNVA) | payer MEDICARE, OTHER, SELFPAY | PROVIDERS: PCP Family Medicine | DX: M81.0 Age-related osteoporosis without current pathological fracture (principal) | CPT/HCPCS: 96372; J3111 ==

== ENCOUNTER 2024-03-23 10:00 | Outpatient (AMB) | payer MEDICARE, OTHER, SELFPAY ==
--- NOTE | 2024-03-23 10:10 | AM.OFFVISNUR ---
Intake Visit Reasons: Evenity #2 Allergies abaloparatide [From Tymlos] Adverse Reaction (Severe, Verified 01/27/24 14:22) Dizziness Bee Stings Adverse Reaction (Unknown, Uncoded 01/27/24 13:51) Swelling Office Meds romosozumab-aqqg 210 mg/2.34 mL(105 mg/1.17 mL x2)subcutaneous syringe Performing Provider: Golden Ling MD Performing Location[place] [facility] [place] [facility] Administered by: Courtney Suh RN on 03/23/24 10:10 Dose Route Admin Location Dispensed Lot Number Expiration Date [facility] Instrument Adjuster 210 mg subcut bilateral upper arms 2.34 mL [id number] 07/26/26 77578-614-32 [facility] Comments: Consent form signed. Pt tolerated injections well. Pt denies any problems with first injection. Assessment & Plan Assessment & Plan Orders: Orders AMB Romosozumab Injection Patient Supplied Today M81.0 - Age-related osteoporosis without current pathological fracture Medications: New romosozumab-aqqg 210 mg (2.34 mL) subcut ONCE 2.34 mL 0RF M81.0 - Age-related osteoporosis without current pathological fracture
== END 2024-03-23 10:09 | disposition home or self-care (01) ==
PROVIDERS: PCP Family Medicine; Visit Provider Student in an Organized Health Care Education/Training Program
DX: M81.0 Age-related osteoporosis without current pathological fracture (principal)

== ENCOUNTER → 2024-03-23 10:00 | Outpatient (BNVA) | payer MEDICARE, OTHER, SELFPAY | PROVIDERS: PCP Family Medicine; Visit Provider Student in an Organized Health Care Education/Training Program | DX: M81.0 Age-related osteoporosis without current pathological fracture (principal); Z51.81 Encounter for therapeutic drug level monitoring | CPT/HCPCS: 96372; J3111 ==

== ENCOUNTER 2024-04-12 13:27 | Outpatient (REF) | payer MEDICARE, OTHER, SELFPAY ==
[2024-04-12 13:45] LABS: MANUAL DIFF FLAG NO
[2024-04-12 13:57] LABS: Basophils Absolute Auto 0.1 X10*3/uL (0.0-0.2); Basophils Percent Auto 1.1 % (0-2); Eosinophils Absolute Auto 0.2 X10*3/uL (0.0-0.4); Eosinophils Percent Auto 2.7 % (0-4); Hematocrit 36.4 % (37.0-47.0); Hemoglobin 11.9 g/dl (12.0-16.0); Imm Gran Abs Auto 0.04 X10*3/uL (0.00-0.03); Imm Gran Pct Auto 0.5 % (0.0-0.4); Lymphocytes Percent Auto 26.9 % (20-40); Mean Corpuscular HGB Conc 32.7 g/dl (31.0-35.0); Mean Corpuscular Hemoglobin 30.8 pg (27.0-33.0); Mean Corpuscular Volume 94.3 fL (80.0-98.0); Mean Platelet Volume 9.7 fL (9.4-12.3); Monocytes Absolute Auto 0.7 X10*3/uL (0.1-1.2); Monocytes Percent Auto 9.7 % (2-11); Neutrophils Absolute Auto 4.4 x10*3/uL (2.0-8.3); Neutrophils Percent Auto 59.1 % (45-73); Platelet Count 323 X10*3/uL (160-400); Red Blood Count 3.86 X10*6/uL (4.20-5.50); Red Cell Distribution Width 12.8 % (11.0-16.0); White Blood Count 7.4 X10*3/uL (4.8-10.8)
[2024-04-12 14:36] LABS: Erythrocyte Sedimentation Rate 18 MM/HR (0-20)
[2024-04-12 14:37] LABS: Alanine Aminotransferase 10 U/L (0-31); Albumin Level 4.1 g/dL (3.5-5.0); Alkaline Phosphatase 56 U/L (39-117); Anion Gap 11 (12-20); Aspartate Amino Transferase 11 U/L (5-31); Bilirubin Total 0.5 mg/dL (0.0-1.0); Blood Urea Nitrogen 14 mg/dL (9-16); C Reactive Protein 0.27 mg/dL (< or = 0.50); Calcium 8.8 mg/dL (8.4-10.2); Carbon Dioxide 26 mmol/L (22-29); Chloride 106 mmol/L (96-108); Estimated Glomerular Filt Rate > 60; Glucose Random 100 mg/dL (60-115); Potassium 4.1 mmol/L (3.3-5.1); Sodium 139 mmol/L (135-145); Total Protein 7.2 g/dL (6.5-8.0)
== END 2024-04-12 13:28 | disposition home or self-care (01) ==
LOC: HO.LAB 13:27
PROVIDERS: PCP Family Medicine; Visit Provider Student in an Organized Health Care Education/Training Program
DX: M06.9 Rheumatoid arthritis, unspecified (principal); C44.91 Basal cell carcinoma of skin, unspecified
CPT/HCPCS: 36415; 80053; 85025; 85652; 86140

== ENCOUNTER 2024-04-15 14:09 | Outpatient (AMB) | payer MEDICARE, OTHER, SELFPAY ==
--- NOTE | 2024-04-15 14:15 | MHC.OFFVIS ---
Vital Signs 04/15/24 14:16 Height 5 ft 6 in Weight 143 lb 4.807 oz BMI 23.1 BP 118/70 Blood Pressure Location Lt brachial Position Sitting Pulse 74 Pulse Source Pulse Oximeter Pulse Oximetry (%) 97 Oxygen Delivery Method Room Air Intake Visit Reasons: RA Intake Note: Patient presents for follow up on osteoarthritis and basal cell carcinoma, last seen on 01/27/2024.? Allergies abaloparatide [From Tymlos] Adverse Reaction (Severe, Verified 04/15/24 14:21) Dizziness Bee Stings Adverse Reaction (Unknown, Uncoded 04/15/24 14:21) Swelling Medication List - Last Reconciled 04/15/24 by Golden Ling MD bupropion HCl XL 150 mg PO QAM Evenity (romosozumab-aqqg) 210 mg (2.34 mL) subcut Q30D NS Humira(CF) Pen (adalimumab) 40 mg (0.4 mL) subcut Q2W NS ibuprofen 600 mg PO Q8H PRN levothyroxine 75 mcg PO DAILY lisinopril 20 mg PO DAILY pantoprazole 40 mg PO DAILY silver sulfadiazine 1% appl topical BID HPI Comments Details: 68-year-old female with seropositive RA and osteoporosis returns for follow-up. She remains on Humira regularly. She states that last week she over did it. She did some work in her [employer] and cleaned her daughter's house. She is having some pain at the right 2nd MCP associated with swelling but very minimal. She took ibuprofen once or twice. Otherwise she feels any well. Has not had any recent illnesses. She received 2 Evenity injections so far, injections were uneventful Initial history: This is a 68-year-old female with seropositive rheumatoid arthritis who presents as a new patient. 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 Patient states that she was [place] [address] Keyes. Symptoms started with pain, stiffness of her wrists, knuckles, ankles, neck and elbows. Stated that she was on hydroxychloroquine for 1-2 years and it was ineffective. Per patient she was briefly on methotrexate, states that she was also very briefly on it, she could not take it due to regular alcohol consumption as well as possible side effects. She has been on Humira since approximately 2016 with good effect. Today patient states that she feels well overall with no joint pain, stiffness or swelling. Compliant with Humira 40 mg every other week. States that she was diagnosed with osteoporosis a few years ago and has been on Boniva for 3-4 years. She denies any fevers, weight change, cough or shortness of breath. She smoked socially for 2-3 years in her late 20s. Patient is unaware of any family history of an autoimmune rheumatic disease. 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 Female Reproductive History Menstrual Total pregnancies: 4 Number of Living Children: 2 Ab spontaneous: 2 Review of Systems Musc Reports arthralgias, Reports joint swelling and Reports stiffness Physical Exam Vital Signs: Last Vital Signs Pulse 74 04/15/24 14:16 BP 118/70 04/15/24 14:16 Pulse Ox 97 04/15/24 14:16 Oxygen Delivery Method Room Air 04/15/24 14:16 BMI result Body Mass Index 23.1 Const General: cooperative, healthy appearing and comfortable Nutritional Appearance: average body habitus Orientation/consciousness: patient oriented x3 Limitations: no limitations HEENT Head: Yes normocephalic and Yes atraumatic Resp Effort & Inspection: normal respiratory effort and able to speak in complete sentences Cardio Rate: regular rate Rhythm: regular rhythm GI Inspection: No distended Palpation (GI): Soft to palpation and nontender Skin General skin exam: no rashes or lesions noted Neuro General: patient oriented x3 Extrem Other: Osteoarthritic changes of both hands Mild right 2nd MCP swelling and tenderness Few hammertoes of the right foot Results Reviewed Results Reviewed: DEXA 07/2021? L-spine T-score-1.8? Right femoral neck T-score -3.0? Right total hip T-score -2.0 EXAMINATION:? BONE DENSITOMETRY CLINICAL INDICATION:? Age-related osteoporosis without current pathological fracture. COMPARISON:? This is the patient's baseline examination. TECHNIQUE: Using a [employer] DXA System (software version: 13.1) manufactured by [employer], dual-energy x-ray absorptiometry was performed of the lumbar spine and left hip. The images are of good technical quality. Summary results are attached. FINDINGS: LEFT FEMUR, NECK: BMD 0.552 g/cm2, Z-score -1.7, T-score -3.5, osteoporosis. LEFT FEMUR, TOTAL: BMD 0.671 g/cm2, Z-score -1.1, T-score -2.7, osteoporosis. AP SPINE L1-L4:? BMD 0.993 g/cm2, Z-score 0.2, T-score -1.6, osteopenia. IDENTIFIED RISK FACTORS:? Menopause, rheumatoid arthritis, secondary osteoporosis (hyperthyroidism).? HISTORY OF FRACTURE:? None listed.? MEDICATIONS:? Calcium, vitamin D, bisphosphonate.? MM/XR DEXA axial skeleton IMPRESSION: 1. DIAGNOSIS: Osteoporosis based on the lowest T-score value of -3.5 in the femoral neck applying World Health Organization criteria.?? Assessment & Plan Assessment & Plan (1) Rheumatoid arthritis: Comment: +RF++CCP dx 2009 HCQ 1-2 years ineffective MTX briefly (patient has self discontinued it) Enbrel secondary nonresponse Humira since 2015, effective Code(s): M06.9 - Rheumatoid arthritis, unspecified Category: Medical Qualifiers: Rheumatoid arthritis location: multiple sites Rheumatoid factor presence: unspecified presence Qualified Code(s): M06.9 - Rheumatoid arthritis, unspecified Plan: This is a 68-year-old female with rheumatoid arthritis who presents for follow-up. Doing quite well with only 1 swollen joint on Humira 40 mg every other week Continue Humira 40 mg every other week. Labs before next visit in 4 months (2) Osteoporosis: Comment: DEXA 07/2021 L-spine T-score-1.8 Right femoral neck T-score -3.0 Right total hip T-score -2.0 DEXA 09/2023 T-score -3.5 LEFT FEMUR, TOTAL: T-score -2.7, osteoporosis. AP SPINE L1-L4: T-score -1.6, osteopenia. Boniva started Tymlos 12/2023-DC after few doses due to dizziness & room spinning Evenity 01/2024 Code(s): M81.0 - Age-related osteoporosis without current pathological fracture Category: Medical Qualifiers: Osteoporosis type: age-related Presence of current pathological fracture: without current pathological fracture Qualified Code(s): M81.0 - Age-related osteoporosis without current pathological fracture Plan: Continue with Evenity monthly. Continue for 12 months and we will plan to repeat DEXA Plan I spent 27 minutes reviewing patient's chart, evaluating patient, ordering diagnostic workup, counseling patient and documenting in the chart Orders: Orders Complete Blood Count Auto Diff 4 Months M06.9 - Rheumatoid arthritis, unspecified C Reactive Protein 4 Months M06.9 - Rheumatoid arthritis, unspecified Erythrocyte Sedimentation Rate 4 Months M06.9 - Rheumatoid arthritis, unspecified Vitamin D 25-OH (D2 and D3) 4 Months E55.9 - Vitamin D deficiency, unspecified Comprehensive Met. Panel 4 Months M06.9 - Rheumatoid arthritis, unspecified Coding Level of Care Code Est Pt Level 4 (60363) Diagnoses Rheumatoid arthritis involving multiple sites, unspecified whether rheumatoid factor present M06.9 Rheumatoid arthritis location: multiple sites Rheumatoid factor presence: unspecified presence Age-related osteoporosis without current pathological fracture M81.0 Osteoporosis type: age-related Presence of current pathological fracture: without current pathological fracture
[2024-04-15 14:16] VITALS: BP 118/70; PULSE 74; O2SAT 97; BMI 23.1
== END 2024-04-15 14:45 | disposition home or self-care (01) ==
PROVIDERS: PCP Family Medicine; Visit Provider Student in an Organized Health Care Education/Training Program
DX: M06.9 Rheumatoid arthritis, unspecified (principal); M81.0 Age-related osteoporosis without current pathological fracture
CPT/HCPCS: 99214

== ENCOUNTER → 2024-04-15 14:09 | Outpatient (BNVA) | payer MEDICARE, OTHER, SELFPAY | PROVIDERS: PCP Family Medicine; Visit Provider Student in an Organized Health Care Education/Training Program | DX: M06.9 Rheumatoid arthritis, unspecified (principal); M81.0 Age-related osteoporosis without current pathological fracture | CPT/HCPCS: 99212 ==

== ENCOUNTER 2024-04-18 10:01 | Outpatient (AMB) | payer MEDICARE, OTHER, SELFPAY ==
--- NOTE | 2024-04-18 10:25 | AM.OFFVISNUR ---
Intake Visit Reasons: evenity #3 Allergies abaloparatide [From Tymlos] Adverse Reaction (Severe, Verified 04/15/24 14:21) Dizziness Bee Stings Adverse Reaction (Unknown, Uncoded 04/15/24 14:21) Swelling Office Meds romosozumab-aqqg 210 mg/2.34 mL(105 mg/1.17 mL x2)subcutaneous syringe Performing Provider: Golden Ling MD Performing Location: [facility] [place] Rheumatology Administered by: Courtney Suh RN on 04/18/24 10:25 Dose Route Admin Location Dispensed Lot Number Expiration Date [facility] Welfare Centre Manager 210 mg subcut bilateral upper arms 2.34 mL [id number] 04/25/26 24874-842-59 AMGEN Comments: Consent form signed. Pt tolerated well. Pt denies any adverse reactions with previous injections. Assessment & Plan Assessment & Plan Orders: Orders AMB Romosozumab Injection Patient Supplied Today M81.0 - Age-related osteoporosis without current pathological fracture Medications: New romosozumab-aqqg 210 mg (2.34 mL) subcut ONCE 2.34 mL 0RF M81.0 - Age-related osteoporosis without current pathological fracture
== END 2024-04-18 10:09 | disposition home or self-care (01) ==
PROVIDERS: PCP Family Medicine
DX: M81.0 Age-related osteoporosis without current pathological fracture (principal)

== ENCOUNTER → 2024-04-18 10:01 | Outpatient (BNVA) | payer MEDICARE, OTHER, SELFPAY | PROVIDERS: PCP Family Medicine | DX: M81.0 Age-related osteoporosis without current pathological fracture (principal) | CPT/HCPCS: 96372; J3111 ==

== ENCOUNTER 2024-05-23 10:07 | Outpatient (AMB) | payer MEDICARE, OTHER, SELFPAY ==
--- NOTE | 2024-05-23 10:24 | AM.OFFVISNUR ---
Intake Visit Reasons: evenity #4/CM Allergies abaloparatide [From Tymlos] Adverse Reaction (Severe, Verified 04/15/24 14:21) Dizziness Bee Stings Adverse Reaction (Unknown, Uncoded 04/15/24 14:21) Swelling Office Meds romosozumab-aqqg 210 mg/2.34 mL(105 mg/1.17 mL x2)subcutaneous syringe Performing Provider: Golden Ling MD Performing Location: [facility] [place] Rheumatology Administered by: Courtney Suh RN on 05/23/24 10:24 Dose Route Admin Location Dispensed Lot Number Expiration Date [facility] Conductor And Engineer 210 mg subcut bilateral upper arms 2.34 mL [id number] 04/25/26 55164-370-81 AMGEN Comments: Consent form signed. Pt tolerated injections well. Pt denies any reactions to previous injections. Assessment & Plan Assessment & Plan Orders: Orders AMB Romosozumab Injection Patient Supplied Today M81.0 - Age-related osteoporosis without current pathological fracture Medications: New romosozumab-aqqg 210 mg (2.34 mL) subcut ONCE 2.34 mL 0RF M81.0 - Age-related osteoporosis without current pathological fracture
== END 2024-05-23 10:23 | disposition home or self-care (01) ==
PROVIDERS: PCP Family Medicine; Visit Provider Student in an Organized Health Care Education/Training Program
DX: M81.0 Age-related osteoporosis without current pathological fracture (principal)

== ENCOUNTER → 2024-05-23 10:07 | Outpatient (BNVA) | payer MEDICARE, OTHER, SELFPAY | PROVIDERS: PCP Family Medicine; Visit Provider Student in an Organized Health Care Education/Training Program | DX: M81.0 Age-related osteoporosis without current pathological fracture (principal) | CPT/HCPCS: 96372; J3111 ==

== ENCOUNTER 2024-06-21 10:50 | Outpatient (AMB) | payer MEDICARE, OTHER, SELFPAY ==
--- NOTE | 2024-06-21 11:12 | AM.OFFVISNUR ---
Intake Visit Reasons: Evenity #5/CM Allergies abaloparatide [From Tymlos] Adverse Reaction (Severe, Verified 04/15/24 14:21) Dizziness Bee Stings Adverse Reaction (Unknown, Uncoded 04/15/24 14:21) Swelling Office Meds romosozumab-aqqg 210 mg/2.34 mL(105 mg/1.17 mL x2)subcutaneous syringe Performing Provider: Golden Ling MD Performing Location: [facility] [place] Rheumatology Administered by: Courtney Suh RN on 06/21/24 11:12 Dose Route Admin Location Dispensed Lot Number Expiration Date [facility] Account Development Associate 210 mg subcut bilateral upper arms 2.34 mL [id number] 10/24/26 44835-136-89 AMGEN Comments: Patient signed consent form. Pt tolerated injections well and denies any adverse reactions with previous injections. Assessment & Plan Assessment & Plan Orders: Orders AMB Romosozumab Injection Patient Supplied Today M81.0 - Age-related osteoporosis without current pathological fracture Medications: New romosozumab-aqqg 210 mg (2.34 mL) subcut ONCE 2.34 mL 0RF M81.0 - Age-related osteoporosis without current pathological fracture
== END 2024-06-21 11:11 | disposition home or self-care (01) ==
PROVIDERS: PCP Family Medicine; Visit Provider Student in an Organized Health Care Education/Training Program
DX: M81.0 Age-related osteoporosis without current pathological fracture (principal)

== ENCOUNTER → 2024-06-21 10:50 | Outpatient (BNVA) | payer MEDICARE, OTHER, SELFPAY | PROVIDERS: PCP Family Medicine; Visit Provider Student in an Organized Health Care Education/Training Program | DX: M81.0 Age-related osteoporosis without current pathological fracture (principal) | CPT/HCPCS: 96372; J3111 ==

== ENCOUNTER 2024-07-29 10:13 | Outpatient (REF) | payer MEDICARE, OTHER, SELFPAY ==
[2024-07-29 10:30] LABS: MANUAL DIFF FLAG NO
[2024-07-29 10:37] LABS: Basophils Absolute Auto 0.1 X10*3/uL (0.0-0.2); Basophils Percent Auto 1.2 % (0-2); Eosinophils Absolute Auto 0.2 X10*3/uL (0.0-0.4); Eosinophils Percent Auto 3.1 % (0-4); Hematocrit 37.4 % (37.0-47.0); Imm Gran Abs Auto 0.03 X10*3/uL (0.00-0.03); Imm Gran Pct Auto 0.4 % (0.0-0.4); Lymphocytes Absolute Auto 1.8 X10*3/uL (1.2-4.9); Lymphocytes Percent Auto 23.1 % (20-40); Mean Corpuscular HGB Conc 32.1 g/dl (31.0-35.0); Mean Corpuscular Hemoglobin 30.5 pg (27.0-33.0); Mean Corpuscular Volume 94.9 fL (80.0-98.0); Mean Platelet Volume 9.7 fL (9.4-12.3); Monocytes Absolute Auto 0.8 X10*3/uL (0.1-1.2); Monocytes Percent Auto 10.6 % (2-11); Neutrophils Absolute Auto 4.7 x10*3/uL (2.0-8.3); Neutrophils Percent Auto 61.6 % (45-73); Platelet Count 298 X10*3/uL (160-400); Red Blood Count 3.94 X10*6/uL (4.20-5.50); Red Cell Distribution Width 12.6 % (11.0-16.0); White Blood Count 7.6 X10*3/uL (4.8-10.8)
[2024-07-29 11:18] LABS: Alanine Aminotransferase 14 U/L (0-31); Albumin Level 4.2 g/dL (3.5-5.0); Alkaline Phosphatase 57 U/L (39-117); Anion Gap 10 (12-20); Aspartate Amino Transferase 15 U/L (5-31); Bilirubin Total 0.6 mg/dL (0.0-1.0); Blood Urea Nitrogen 17 mg/dL (9-16); C Reactive Protein < 0.10 mg/dL (< or = 0.50); Calcium 8.4 mg/dL (8.4-10.2); Carbon Dioxide 26 mmol/L (22-29); Chloride 107 mmol/L (96-108); Estimated Glomerular Filt Rate > 60; Glucose Random 77 mg/dL (60-115); Potassium 4.4 mmol/L (3.3-5.1); Sodium 139 mmol/L (135-145); Total Protein 7.1 g/dL (6.5-8.0)
[2024-07-29 11:19] LABS: Erythrocyte Sedimentation Rate 11 MM/HR (0-20)
--- OUTSIDE RECORDS SUMMARY | 2024-07-29 11:30 | XMS_ITS | Continuity of Care Document ---
Author Organization [facility] Jillian [facility] Address [address] [place] [address]- Care Team Providers Care Healthcare Administration Internship Name Role Phone Marilin CHAUDHARI, Hannah Espinosa Primary Care Physic [place] Encounter [facility] Date(s): 06/01/24 - 07/01/24 [facility] Maiteesperanza Blanc[employer] Holding [facility] [address] [place] [address], [address] [place], [place] [address] Encounter Type: Triage Allergies, Adverse Reactions, Alerts No Known Medication Allergies Substance Criticality Severity Reaction Reaction Severity Status Bee Stings feet and face swelling Active Immunizations Given and Recorded Vaccine Date Status Refusal Reason influenza virus vaccine, inactivated 1 08/17/23 Gi alberta influenza virus vaccine, inactivated 04/17/22 Give n influenza virus vaccine, inactivated 06/25/21 Give n influenza virus vaccine, inactivated 05/13/21 Nam rded influenza virus vaccine, inactivated 2 05/24/20 Gi alberta influenza virus vaccine, inactivated 3 05/20/19 Gi alberta influenza virus vaccine, inactivated 06/09/18 Give n influenza virus vaccine, inactivated 4 05/11/17 Re corded influenza virus vaccine, inactivated 5 06/30/16 Re corded influenza virus vaccine, inactivated 05/21/16 Nam rded influenza virus vaccine, inactivated 08/29/15 Give n influenza virus vaccine, inactivated 04/20/14 Give n influenza virus vaccine, inactivated 6 05/20/13 Re corded influenza virus vaccine, inactivated 7 04/12/12 Re corded influenza virus vaccine, inactivated 8 07/13/09 Re corded influenza virus vaccine, inactivated 9 09/06/07 Re corded zoster vaccine, inactivated 12/11/22 Recorded zoster vaccine, inactivated 09/30/22 Recorded [id number] bivalent booster vax 07/30/22 Given pneumococcal 23-valent vaccine 07/30/22 Given pneumococcal 23-valent vaccine 06/12/16 Given SARS-CoV-2 (COVID-19) mRNA-1273 vaccine 06/25/21 G iven SARS-CoV-2 (COVID-19) mRNA-1273 vaccine 05/13/21 R ecorded SARS-CoV-2 (COVID-19) mRNA-1273 vaccine 11/06/20 R ecorded SARS-CoV-2 (COVID-19) mRNA-1273 vaccine 10/09/20 R ecorded pneumococcal 13-valent vaccine 10 05/10/14 Given tetanus-diphtheria toxoids (Td) 11 10/11/12 Record ed tetanus-diphtheria toxoids (Td) 12 11/18/05 Record ed 1Result Comment: [facility]: 32532-842-72 2Result Comment: [facility] [id number] 3Result Comment: pt assessed for contraindications administered without incident, pt kurt well [facility]: [id number] 4Result Comment: [06/24/2017] done at Rheumatology office 5Result Comment: [10/06/2016] 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 Carlos Man 8Location History: Dr. Carlos Man 9Location History: Dr. Carlos Man 10Result Comment: [05/10/2014] Ins waiver signed 11Location History: Dr. Carlos Man 12Location History: Dr. Carlos Man Medications acetaminophen 500 mg oral capsule 2 capsule = 1,000 mg, By Mouth, Every 8 hours, PRN for fever, # 40 capsule, 0 Refills, Maintenance,11/04/21 9:10:00 AM EDT, Capsule, [id number], 167.64, cm, 11/04/21 6:59:00 EDT, Height, 65.3, kg, 11/04/21 6:59:00 EDT, Dry Weight Start Date: 11/04/21 Status: Ordered Quantity: 40.0 Unit: capsule Repeat number: 1 Calcium And Vitamin D Combination 1 tablet, By Mouth, Daily, 0 Refills, Maintenance, 06/08/18 1:40:50 PM EST Start Date: 06/08/18 Status: Ordered Repeat number: 1 clobetasol 0.05% topical ointment 1 application, Topically, 2 times a day, PRN Itch, # 45 Gm, 0 Refills, Maintenance, 06/03/24 1:01:00PM EST, Ointment, [id number], Partial fill upon patient request if the prescription is for a schedule II opioid drug., 1 application Topically 2 times a day,PRN:Itch, 160, cm, 06/01/24 11:10:00 EST, Height, 66.3, kg, 04/26/24 13:27:00 EDT, Dry Weight Start Date: 06/03/24 Status: Ordered Quantity: 45.0 Unit: g Repeat number: 1 Humira Pen 40 mg/0.4 mL subcutaneous kit See Instructions, INJECT 40 MG UNDER THE SKIN EVERY TWO WEEKS, # 2 each, 0 Refills, Maintenance, 04/22/23 11:17:00 AM EDT, [id number], 167, cm, 04/22/23 10:23:00 EDT, Height, 65.4, kg, 12/09/22 7:16:00 EDT, Dry Weight Start Date: 04/22/23 Status: Ordered Quantity: 2.0 Unit: each Repeat number: 1 ibuprofen 600 mg oral tablet 600 mg, 1, tablet, By Mouth, Every 8 hours, # 30 tablet, Refills 0, Tot. Refills 0, Maintenance, 11/04/21 9:10:00 AM EDT, Route to Pharmacy Electronically, [id number], Partial fill upon patient request if the prescription is for a schedule II opioid drug., 167.64, cm, 11/04/21 6:59:00 EDT, Height, 65.3, kg, 11/04/21 6:59:00 EDT, Dry Weight Start Date: 11/04/21 Status: Ordered Quantity: 30.0 Unit: tablet Repeat number: 1 levothyroxine 75 mcg (0.075 mg) oral tablet 1 tablet = 75 mcg, By Mouth, Daily, # 90 tablet, 1 Refills, Soft Stop, 06/10/24 12:05:00 PM EST, [id number], 160, cm, 06/01/24 11:10:00 EST, Height, 66.3, kg, 04/26/24 13:27:00 EDT, Dry Weight Start Date: 06/10/24 Stop Date: 12/07/24 Status: Ordered Quantity: 90.0 Unit: tablet Repeat number: 2 lisinopril 20 mg oral tablet 20 mg, 1, tablet, By Mouth, Daily, # 90 tablet, Refills 3, Tot. Refills 3, Maintenance, 03/31/24 5:59:00 PM EDT, Route to Pharmacy Electronically, [id number], Partial fill upon patient request if the prescription is for a schedule II opioid drug., 167, cm, 03/31/24 15:21:00 EDT, Height, 63.4,kg, 10/27/23 13:16:00 EDT, Dry Weight Start Date: 03/31/24 Status: Ordered Quantity: 90.0 Unit: tablet Repeat number: 4 Multivitamin Daily, 0 Refills, Maintenance, 10/31/21 11:37:00 AM EDT, Partial fill upon patient request if the prescription is for a schedule II opioid drug. Start Date: 10/31/21 Status: Ordered Repeat number: 1 pantoprazole 40 mg oral delayed release tablet 1 tablet, By Mouth, Daily, Down titrate to discontinuae medication over the next two months. (Everyother day for two weeks, then every third day for two weeks, etc.), # 90 tablet, 3 Refills, Maintenance, 08/17/23 11:57:00 AM EST, 167, cm, 08/17/23 11:37:00 EST, Height, 65.9, kg, 05/04/23 10:52:00 EDT, Dry Weight Start Date: 08/17/23 Status: Ordered Quantity: 90.0 Unit: tablet Repeat number: 4 Vitamin C = 500 mg, By Mouth, Daily, 0 Refills, Maintenance, 09/09/13 11:19:20 AM EST Start Date: 09/09/13 Status: Ordered Repeat number: 1 Wellbutrin XL 150 mg/24 hours oral tablet, extended release 1 tablet = 150 mg, By Mouth, Every 24 hours, # 90 tablet, 3 Refills, Maintenance, 09/24/23 1:09:00 PM EST, ER Tablet, [id number], Partial fill upon patient request if the prescription is for aschedule II opioid drug., 167, cm, 09/07/23 13:08:00 EST, Height, 65.9, kg, 05/04/23 10:52:00 EDT, Dry Weight Start Date: 09/24/23 Status: Ordered Quantity: 90.0 Unit: tablet Repeat number: 4 Indication: Rheumatoid arthritis, unspecified Problem List Condition Confirmation Course Effective Dates Status H ealth Status Informant Anaplasmosis Confirmed Active Anemia Confirmed Active Anxiety with flying Confirmed Active Atrophic vaginitis Confirmed Active Rectal fissure Confirmed Active Vulvar dystrophy Confirmed Active GREYSON (generalized anxiety disorder) Confirmed Active Generalized anxiety disorder with panic attacks Confirmed Active History of cervical dysplasia Confirmed Active Chronic hypertension Confirmed Active Vulvar lesion Confirmed Active Melena Confirmed Active Osteoporosis Confirmed Active Visit for routine tooth cutter spur exam Confirmed Active Pleural effusion Confirmed Active Prepyloric ulcer Confirmed Active Vulvar itching Confirmed Active Rheumatoid arthritis Confirmed Active Thrombocytosis Confirmed Active Varicella Confirmed Active Vulvar dermatitis Confirmed Active 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 Social History Social History Type Response Smoking Status Former smoker; Tobac co user in household: No; Other: Quit 30 years ago; entered on: 04/20/14 Sex Sex Representation Female (finding) Patient Care team information Care Team Personnel Name: Marilin CHAUDHARI, Hannah Espinosa Position: [facility] Physician - Primary Care Member Role: PCP Address: [address] [place] [address] Telecom: Name: Ana Barrientos RN Position: [facility] RN Member Role: Primary Care Nurse Care Team Related Persons Name: ZIA HOFFMANN Name: IVONNE MEDEL Insurance Providers Guarantor name: JORDAN NEWBYNE Health Plan Information #: 1 Payer: MEDICARE PART B OUTPT Member Number: NA Policy Number: NA Group Number: NA Health Plan Information #: 2 Payer: [facility] Member Number: NA Policy Number: NA Group Number: NA
--- OUTSIDE RECORDS SUMMARY | 2024-07-29 11:30 | XMS_ITS | Continuity of Care Document ---
Author Organization [facility] Address [address] [place] [address]- Care Team Providers Care Meeting/Event Planner Name Role Phone Marilin CHAUDHARI, Hannah Espinosa Primary Care Physic [place] [facility] [place]): [place]/24 [facility] [address], [place] [id number] Attending Physician: AdmBernarda nicholas Admitting Physician: AdmtrBernarda Referring Physician: Admtr, [id number] Encounter Type: Triage Allergies, Adverse Reactions, Alerts [...] 12/11/22 Recorded zoster vaccine, inactivated 09/30/22 Recorded [id number] bivalent booster vax 07/30/22 Given pneumococcal 23-valent [...] 12 11/18/05 Record ed 1Result Comment: [facility]: [id number] 2Result Comment: [facility] [id number] 3Result Comment: pt assessed for contraindications administered without incident, pt kurt well [facility]: [id number] 4Result Comment: [06/24/2017] done at Rheumatology office 5Result Comment: [10/06/2016] 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 Carlos Man 8Location [...] 0 Refills, Maintenance, 06/03/24 1:01:00PM EST, Ointment, [facility]/pharmacy #[id number], Partial fill upon patient request if [...] 0 Refills, Maintenance, 04/22/23 11:17:00 AM EDT, [facility]/pharmacy #[id number], 167, cm, 04/22/23 10:23:00 EDT, Height, 65.4, kg, 12/09/22 7:16:00 EDT, Dry Weight Start Date: 04/22/23 Status: Ordered Quantity: 2.0 Unit: each Repeat number: 1 ibuprofen 600 mg oral tablet 600 mg, 1, tablet, By Mouth, Every 8 hours, # 30 tablet, Refills 0, Tot. Refills 0, Maintenance, 11/04/21 9:10:00 AM EDT, Route to Pharmacy Electronically, [facility]/pharmacy #[id number], Partial fill upon patient request if [...] Refills, Soft Stop, 06/10/24 12:05:00 PM EST, [facility]/pharmacy #[id number], 160, cm, 06/01/24 11:10:00 EST, Height, 66.3, kg, 04/26/24 13:27:00 EDT, Dry Weight Start Date: 06/10/24 Stop Date: 12/07/24 Status: Ordered Quantity: 90.0 Unit: tablet Repeat number: 2 lisinopril 20 mg oral tablet 20 mg, 1, tablet, By Mouth, Daily, # 90 tablet, Refills 3, Tot. 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 Pleural effusion Confirmed Active [...] on: 04/20/14 Sex Sex Representation Female (finding) Laboratory * Event Display: Non BH Lab Results Authored Date: * Event Display: Non BH Lab Results Authored Date: * Event Display: Non BH Lab Results Authored Date: MG Breast Views * Event Display: MM Mammogram, Non- BH Authored Date: Radiology * Event Display: Non BH Radiology Results Authored Date: * Event Display: Non BH Radiology Results Authored Date: * Event Display: Non BH Radiology Results Authored Date: Patient Care team information Care Team Personnel Name: Marilin CHAUDHARI, Hannah Espinosa Position: S Physician - Primary Care Member Role: PCP Address: [address] [place] [id number]- [place] Tele[employer]: Name: Ana Barrientos RN Position: S RN Member Role: Primary Care Nurse Care Team Related Persons Name: ZIA HOFFMANN Name: IVONNE MEDEL Insurance Providers Guarantor name: JORDAN CORTES Health Plan Information #: 1 Payer: MEDICARE PART B OUTPT Member Number: NA Policy Number: NA Group Number: NA Health Plan Information #: 2 Payer: [facility] Member Number: NA Policy Number: NA Group Number: NA
--- OUTSIDE RECORDS SUMMARY | 2024-07-29 11:30 | XMS_ITS | Data Portability ---
Author Organization 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 Plan of Treatment Reminders Order Date Submit Date Provider Last Modified By Organization Details Last Modified Time Details Appointments None recorded. Lab C-reactive protein, quantitati ve, serum or plasma 2020 021 [facility], [address] [place] [address], [address], 11:37:59 ESR (erythrocy te sedimentat ion rate), blood 2020 021 [facility], [address] [place] [address], [address], 14:00:44 C-reactive protein, quantitati ve, serum or plasma 2021 022 [facility], [address] [place] [address], [address], 10:32:29 ESR (erythrocy te sedimentat ion rate), blood 2021 [facility], [address] [place] [address], [address], 15:47:30 Referral hand surgeon referral - Patient unable to separate the third and forth right fingers. 2021 022 [email or web address] Gardenia Tate MD, [address] [place] [address], [address], 15:31:02 Procedures None recorded. Surgeries None recorded. Imaging None recorded. Medication Orders Humira(CF) Pen 40 mg/0.4 mL subcutaneo us kit 2019 020 [email or web address] [facility], [address] [place] [address], [address], 3 08:31:12 prednisone 10 mg tablet 2021 023 [facility] #[id number], [address] [place], [address], 3 08:35:18 Humira(CF) Pen 40 mg/0.4 mL subcutaneo us kit 2021 [facility] [address] [place] [address], [address], 3 08:35:18 Patient TargetsNo targets recorded. Patient InstructionsNo instructions recorded. Reason for Referral Hand Surgeon Referral for [place] pain Patient unable to separate the third and forth right fingers. Referring Physician: Irma Ortiz, Rheumatology, Encounter Date: 2022 Results Created Date Observation Date Name Description Value Unit Range Abnormal Flag Note LastModifiedBy Organization Detail LastModifiedTime 05/29/2005/30/2021 C-HERB CTIVE PROTE IN-QU ANTIT ATIVE C-reactive protein -quant <2.0 mg/L 0.0-9. 0 < verif iied by rerun JLW Not Available [facility] [address] [facility], [place], [address], 05/30/2021 11:37:59 05/29/2005/30/2021 SED RATE BY MODIF IED LOCO HIREN sed rate by modified marcelren 9 mm/h < or = 30 normal Not Available [facility] [address], [place], [address], 05/30/2021 17:32:09 06/09/20 22 06/09/2022 CBC W/O AUTO DIFF WBC 7.83 K/??L 3.98-1 0.04 Not Available [address], [address], 06/09/2022 14:43:29 06/09/20 22 06/09/2022 CBC W/O AUTO DIFF RBC 3.55 M/??L 3.93-5 .22 low Not Available [address], [address], 06/09/2022 14:43:29 06/09/20 22 06/09/2022 CBC W/O AUTO DIFF HGB 10.4 g/dL 11.2-1 5.7 low Not Available [address], [address], 06/09/2022 14:43:29 06/09/20 22 06/09/2022 CBC W/O AUTO DIFF HCT 32.9 % 34.1-4 4.9 low Not Available [address], [address], 06/09/2022 14:43:29 06/09/20 22 06/09/2022 CBC W/O AUTO DIFF MCV 92.7 fL 79.4-9 4.8 Not Available [address], [address], 06/09/2022 14:43:29 06/09/20 22 06/09/2022 CBC W/O AUTO DIFF MCH 29.3 pg 25.6-3 2.2 Not Available [address], [address], 06/09/2022 14:43:29 06/09/20 22 06/09/2022 CBC W/O AUTO DIFF MCHC 31.6 g/dL 32.2-3 5.5 low Not Available [address], [address], 06/09/2022 14:43:29 06/09/20 22 06/09/2022 CBC W/O AUTO DIFF plt 418 K/??L 182-36 9 high Not Available [address], [address], 06/09/2022 14:43:29 06/09/20 22 06/09/2022 CBC W/O AUTO DIFF RDW-CV 14.2 % 11.7-1 4.4 Not Available [address], [address], 06/09/2022 14:43:29 06/09/20 22 06/09/2022 ESR sed rate 45.0 0.0-15 .0 high Not Available [address], [address], 06/09/2022 15:47:30 06/09/20 22 2022 COMP. METAB OLIC PANEL glucose 124 mg/dL 70-100 high Not Available [address], [address], 2022 10:32:27 06/09/20 22 2022 COMP. METAB OLIC PANEL BUN 16 mg/dL 7-18 Not Available [address], [address], 2022 10:32:27 06/09/20 22 2022 COMP. METAB OLIC PANEL creatinine 0.8 mg/dL 0.8-1. 3 Not Available [address], [address], 2022 10:32:27 06/09/20 22 2022 COMP. METAB OLIC PANEL B/C 20.0 ratio Not Available [address], [address], 2022 10:32:27 06/09/20 22 2022 COMP. METAB OLIC PANEL GFR >=60ML /MIN mL/mi n normal >=60m L/min - Caitlin l or midly reduc ed <60mL /min- Decre ased kidne y funct ion <15mL /min - Kidne y failu re [facility] calcu lates estim ated Glome rular Filtr ation Rate (eGFR ) using the Chron ic Kidne y Disea se Epide miolo gy Colla borat ion (CKD- EPI) Equat ion (Delfino r et. al 2020) as recom ernesto d by the Natio nal Kidne y Found ation . eGFR is based on age, serum creat inine , and sex. CKD-E PI does not calcu late eGFR by race, does not apply to child cally (age <18 years ), and shoul d not be used in pregn ori. Not Available [address], [address], 2022 10:32:27 06/09/20 22 2022 COMP. METAB OLIC PANEL sodium 139 mmol/ L 136-14 5 Not Available [address], [address], 2022 10:32:27 06/09/20 22 2022 COMP. METAB OLIC PANEL potassium 4.4 mmol/ L 3.5-5. 1 Not Available [address], [address], 2022 10:32:27 06/09/20 22 2022 COMP. METAB OLIC PANEL chloride 102 mmol/ L 96-107 Not Available [address], [address], 2022 10:32:27 06/09/20 22 2022 COMP. METAB OLIC PANEL anion gap 9.1 5.0-15 .0 Not Available [address], [address], 2022 10:32:27 06/09/20 22 2022 COMP. METAB OLIC PANEL CO2 28 mmol/ L 21-32 Not Available [address], [address], 2022 10:32:27 06/09/20 22 2022 COMP. METAB OLIC PANEL calcium 8.9 mg/dL 8.5-10 .3 Not Available [address], [address], 2022 10:32:27 06/09/20 22 2022 COMP. METAB OLIC PANEL total protein 7.3 g/dL 6.4-8. 2 Not Available [address], [address], 2022 10:32:27 06/09/20 22 2022 COMP. METAB OLIC PANEL albumin 3.8 g/dL 3.4-5. 0 Not Available [address], [address], 2022 10:32:27 06/09/20 22 2022 COMP. METAB OLIC PANEL globulin 3.5 g/dL Not Available [address], [address], 2022 10:32:27 06/09/20 22 2022 COMP. METAB OLIC PANEL A/G 1.1 ratio 0.8-2. 0 Not Available [address], [address], 2022 10:32:27 06/09/20 22 2022 COMP. METAB OLIC PANEL total bilirubin 0.50 mg/dL 0.00-1 .00 Not Available [address], [address], 2022 10:32:27 06/09/20 22 2022 COMP. METAB OLIC PANEL AST 13 U/L 0-37 Not Available [address], [address], 2022 10:32:27 06/09/20 22 2022 COMP. METAB OLIC PANEL ALT 19 U/L 6-63 Not Available [address], [address], 2022 10:32:27 06/09/20 22 2022 COMP. METAB OLIC PANEL alk. phos. 75 U/L 50-136 Not Available [address], [address], 2022 10:32:27 06/09/20 22 2022 LIPID PANEL cholesterol 207 mg/dL <200 mg/dl Keri able 200-2 39 mg/dl Borde rline High >240 mg/dl High Not Available [address], [address], 2022 10:32:28 06/09/20 22 2022 LIPID PANEL triglyceride s 55 mg/dL <150 mg/dL Caitlin l 150-1 99 mg/dL Borde rline High 200-4 99 mg/dL High >500 mg/dL Very High Not Available [address], [address], 2022 10:32:28 06/09/20 22 2022 LIPID PANEL direct HDL 76 mg/dL <40 mg/dl - Major Risk for CHD >60 mg/dl - Negat rebecca Risk for CHD Not Available [address], [address], 2022 10:32:28 06/09/20 22 2022 DIREC T LDL direct LDL 117 mg/dL RISK CATEG ORY LDL GOAL _ CHD or CHD Risk Equiv alent s <100 mg/dl (10-y ear risk >20%) 2+ Risk Facto rs <130 mg/dl (10-y ear risk <= 20%) 0-1 Risk Facto r??? <160 mg/dl ??? Almos t all peopl e with 0-1 risk facto r have a 10 year risk <10%, thus 10 year risk asses ment in peopl e with 0-1 risk facto r is not keravalentina corrales. Not Available [address], [address], 2022 10:32:29 06/09/20 22 2022 C-HERB CTIVE PROTE IN-QU ANTIT ATIVE C-reactive protein -quant 25.0 mg/L 0.0-9. 0 high Not Available [address], [address], 2022 10:32:29 Result Notes None recorded. Problems Name Problem SNOMED Code Status Onset Date Resolution Date Notes Provider Name and Address Organization Details Recorded Time Seropositive rheumatoid arthritis 097832668 Active Odilon Keyes MD [address] [place] [address], [address], [facility] 6 07:56:04 Anemia 827291097 Active Odilon Keyes MD [address] [place] [address], [address], [facility] 6 07:56:04 Osteoporosis 52025350 Active 2017 Odilon Keyes MD [address] [place] [address], [address], [facility] 8 19:07:30 Problem Notes None recorded. Procedures Surgical History Date Name Laterality Status Provider Name and Address Organization Details Recorded Time 9 Generic Procedure Template completed Odilon Keyes MD [address] [place] [address], [address], [facility] 02/05/2019 14:27:25 Imaging Results None recorded. Procedure Notes None recorded. Medical Equipment None Reported. Allergies Allergen ID Allergen Name Allergen Category Reaction Reaction Severity Criticality Documentation Date Start Date Code Code System Note Provider Name and Address Organization Details Recorded Time 19640902 honey bee venom medicatio n Not available Not available Not available 11/14/2016 08934 7 RxNorm Yany Tyler LPN [facility] 7 09:54:03 Medications Name Sig Start Date Stop Date Status Note LastModified by Organization Details LastModified Time Prescript ion - Prior Authoriza tion Request 01/14 completed Not Available Not Available Not Available prednison e 10 mg tablet Take 2 tablets PO daily for 7 days then 1 tablet daily for one week 01/14 completed Not Available Not Available Not Available lisinopri l 20 mg tablet Take 1 tablet every day by oral route. 01/[address] Walker Not Available Not Available Not Available Tubersol 5 tub. unit/0.1 mL intraderm al injection solution Inject 0.1 mL by intrader mal route. 06/14 completed Not Available Not Available Not Available methotrex ate sodium 2.5 mg tablet 8 tabs po weekly 05/21 completed Not Available Not Available Not Available Synthroid 75 mcg tablet Take 1 tablet every day by oral route. 01/14 completed Not Available Not Available Not Available leucovori n calcium 5 mg tablet 2 po weekly approx 12 hrs after methotre xate dose 11/24 completed Not Available Not Available Not Available folic acid 1 mg tablet Take 1 tablet every day by oral route. 11/14 completed Not Available Not Available Not Available lisinopri l 5 mg tablet Take 1 tablet every day by oral route. 09/16 completed increase d dose Not Available Not Available Not Available naproxen 500 mg tablet TAKE 1 TABLET BY MOUTH TWICE A DAY NEEDED 01/14 completed needs new script Not Available Not Available Not Available ibandrona te 150 mg tablet TAKE 1 TABLET BY MOUTH ONCE A MONTH 01/14 completed Not Available Not Available Not Available Humira Pen 40 mg/0.8 mL subcutane ous kit INJECT 40 MG (0.8 ML) UNDER THE SKIN ONCE EVERY TWO WEEKS 01/14 completed Not Available Not Available Not Available Enbrel SureClick 50 mg/mL (1 mL) subcutane ous pen injector Inject 1 mL every week by subcutan eous route. 05/21 completed Not Available Not Available Not Available Humira(CF ) Pen 40 mg/0.4 mL subcutane ous kit INJECT 0.4 ML UNDER THE SKIN EVERY TWO WEEKS 01/14 completed Not Available Not Available Not Available Vitals Date Recorded Body height Body mass index (BMI) Body weight Heart rate Systolic blood pressure Diastolic blood pressure Provider Name and Address Organization Details Last Updated DateTime 0 167.64 cm 24 kg/m2 26500.5 4 g 64 /min 140 mm[Hg] 82 mm[Hg] Anne-Marie Rodarte LPN [facility] 0 08:28:42 Date Recorded Body height Body temperature Provider N laura and Address Organization Details Last Updated DateTime 04/30/2020 167.64 cm 96.4 [degF] Nanci Pace ROSS F[employer]NACE [employer]ATOR [facility] 04/30/2020 09:36:28 Date Recorded Body weight Heart rate Systolic blood pressure Diastolic blood pressure Provider Name and Address Organization Details Last Updated DateTime 05/29/2021 17588.82 g 74 /min 118 mm[Hg] 62 mm[Hg] Fransisca Sandoval LPN [facility] 05/29/2021 11:11:55 Date Recorded Body weight Heart rate Systolic blood pressure Diastolic blood pressure Provider Name and Address Organization Details Last Updated DateTime 10/23/2021 51604.36 g 64 /min 110 mm[Hg] 78 mm[Hg] Fransisca Sandoval ROSS F[employer]NACE OPERATOR [facility] 10/23/2021 13:47:19 Date Recorded Body weight Heart rate Systolic blood pressure Diastolic blood pressure Provider Name and Address Organization Details Last Updated DateTime 2022 87392.84 g 66 /min 108 mm[Hg] 72 mm[Hg] Fransisca Sandoval LPN [facility] 2022 08:11:09 Social History Question Answer Notes LastModified by Organizat ion Details LastModified Time Tobacco Smoking Status Former Smoker John Barrientos LPN [facility] 10/09/2015 14:23:17 What Is Your Level Of Alcohol Consumption? Moderate 1-2 Glasses Wine 2-3 D/wk Information not available 10/09/2015 How Much Tobacco Do You Chew? 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 14+yearssinkathy amin [email or web address] Information not available 10/09/2015 How Many Days In The Past Year Have You Had A Heavy Drinking Consumption (4+ Female, 5+ Male)? 20 [email or web address] Information not available 10/09/2015 Marital Status Informatio n not available 10/09/2015 What Was The Date Of Your Most Recent Tobacco Screening? 02/05/2019 Information not available 02/16/2019 Sex: Unknown Functional Status None recorded. Mental Status None recorded. Family History Relationship Description Onset Age of this Age Resolved Age Notes LastModified by Organization Details LastModified Time Father Heart disease 60 Not available 2015 17:30:41 Notes:No FHx inflammatory ar thritis Medical History Condition Response Rheumatoid Arthritis Y Gynecological HistoryNo gynecological history recorded. Obstetrics History GPAL:G 0 P 0 0 0 0 Immunizations Vaccine Type Date Status Note Provider Nam e and Address Organization Details Recorded Time Influenza, split virus, quadrivalent, PF 6 completed Not Available [facility] 08/13/2019 02:21:04 Influenza, split virus, quadrivalent, PF 7 completed Not Available [facility] 08/13/2019 02:31:53 Influenza, split virus, quadrivalent, preservative [address] [facility] 06/14/2018 14:31:22 COVID-19, mRNA, LNP-S, PF, 100 mcg/0.5mL dose or 50 mcg/0.25mL dose 1 completed MARK Long, [facility] 06/03/2021 08:48:43 COVID-19, mRNA, LNP-S, PF, 100 mcg/0.5mL dose or 50 mcg/0.25mL dose 1 completed Anne-Marie Cayden, [facility] 08:48:56 Td (adult) 6 completed Anne-Marie Cayden, [facility] 06/03/2021 08:49:59 Td (adult) 3 completed Anne-Marie [place]blo, [facility] 06/03/2021 08:50:12 Influenza, split virus, quadrivalent, preservative 9 completed Anne-Marie [place]blo, [facility] 06/03/2021 08:51:19 Influenza, split virus, quadrivalent, preservative 0 completed Anne-Marie Cayden, [facility] 06/03/2021 08:51:28 Pneumococcal conjugate PCV 13 4 completed Anne-Marie [place], [facility] [facility] 06/03/2021 08:53:00 pneumococcal polysaccharide PPV23 6 completed Anne-Marie Cayden, [facility]CE [facility] 06/03/2021 08:53:31 COVID-19, mRNA, LNP-S, PF, 100 mcg/0.5mL dose or 50 mcg/0.25mL dose 1 [facility]21 13:45:15 Influenza, split virus, quadrivalent, preservative 1 [facility]21 13:45:42 Past Encounters Encounter ID Performer Location Encounter Start Date Encounter Closed Date Diagnosis/Indication Diagnosis SNOMED-CT Code Diagnosis ICD10 Code [id number] MD Nicolle Sandoval [address] [place] [address] 10/09/2015 13:58:03 10/10/2015 07:21:08 Seropositive rheumatoid arthritis 241121831 M05.79 [id number] MD Nicolle Sandoval [address] [place] [address] 11/20/2015 09:21:48 11/20/2015 10:06:27 Seropositive rheumatoid arthritis 563234479 M05.79 Long-term drug therapy 546746755 Z79.195 [id number] Odilon Keyes MD [facility] [address] [address] 12/25/2015 10:43:15 12/25/2015 16:40:23 Seropositive rheumatoid arthritis 774066119 M05.79 Anemia 947665838 D64.9 Long-term drug therapy 274226754 Z79.030 [id number] Odilon Keyes MD [facility] [address] [address] 03/10/2016 10:57:46 03/11/2016 07:31:57 Seropositive rheumatoid arthritis 113559491 M05.79 Long-term drug therapy 406239737 Z79.961 [id number] Odilon Keyes MD [facility] [address] [address] 05/21/2016 08:47:43 05/22/2016 07:44:31 Seropositive rheumatoid arthritis 812603938 M05.79 Active or passive immunization 787512526 Z23 [id number] Odilon Keyes MD [facility] [address] [address] 11/14/2016 09:48:42 11/14/2016 10:25:13 Seropositive rheumatoid arthritis 025931987 M05.79 Osteoporosis 24642958 M8 1.0 [id number] Odilon Keyes MD [facility] [address] [address] 05/11/2017 09:46:37 05/11/2017 10:22:22 Seropositive rheumatoid arthritis 134054462 M05.79 Active or passive immunization 712445554 Z23 Osteoporosis 56775613 M8 1.0 [id number] Odilon Keyes MD [facility] [address] [address] 11/24/2017 09:06:29 11/24/2017 09:54:51 Seropositive rheumatoid arthritis 939695212 M05.79 Tuberculos is screening 605732551 Z11.1 Osteoporosis 56967859 M8 1.0 [id number] Odilon Keyes MD Rheumatol ogamelia, [address] [address] 06/14/2018 14:17:19 06/14/2018 14:59:50 Seropositive rheumatoid arthritis 934571146 M05.79 Osteoporosis 80276119 M8 1.0 Ischemic colitis 0147782 4 K55.471 [id number] Odilon Keyes MD Rheumatol ogamelia, [address] [address] 02/04/2019 08:35:06 02/04/2019 09:14:44 Seropositive rheumatoid arthritis 974808750 M05.79 Osteoporosis 15147099 M8 1.0 Elbow joint effusion 202 682936 M25.939 [id number] Odilon Keyes MD Rheumatol tasha, [address] [address] 09/16/2019 08:15:49 09/16/2019 08:46:36 Seropositive rheumatoid arthritis 269471358 M05.79 Osteoporosis 58924663 M8 1.0 [id number] Omari Ortiz MD [facility], [address] [place] [address] 04/30/2020 07:38:03 04/30/2020 12:07:10 Seropositive rheumatoid arthritis 857793008 M05.79 [id number] Omari Ortiz MD Rheumat[facility] tasha, [address] [address] 05/29/2021 11:02:07 05/29/2021 18:41:38 Seropositive rheumatoid arthritis 440411473 M05.79 [id number] Omari Ortiz MD [facility] tasha, [address] [address] 10/23/2021 13:28:41 10/27/2021 08:39:57 Seropositive rheumatoid arthritis 068955458 M05.79 [id number] Omari Ortiz MD [facility]umat[facility] tasha, [address] [address] 2022 07:54:26 06/13/2022 13:47:50 Seropositive rheumatoid arthritis 367223730 M05.79 Hand pain 74823622 M79.6 41 Osteoporosis 47804088 M8 1.0 Long-term drug therapy 742174892 Z79.899 Health Concerns Section Related Observation LastModified by Organization Detai ls LastModified Time None Recorded Concern Status LastModified by Organization Details LastModified Time None Recorded Advance Directives Directive None Recorded Payers Encounter Date Sequence Insurance Name Policy Number Policy Nielsen Covered Member ID Nielsen Member ID Guarantor Name 09/16/2019 1 [employer] - [employer] (PPO) [id number] Danelle Templeton [id number] Danelle E Chasidy 04/30/2020 1 [employer] (PPO) [id number] Danelle Chasidy [id number] Daenlle E Templeton 05/29/2021 1 [employer] (PPO) [id number] Danelle Templeton [id number] Danelle E Templeton 10/23/2021 1 [employer] (PPO) [id number] Danelle Chasidy [id number] Danelle E Templeton 2022 1 [place] [employer]MENT [place] Danelle Sabra Chasidy [id number] Danelle E Chasidy 2022 2 [employer] - SENIOR SERVICES PLAN F (MEDICARE SUPPLEMENT) [id number] Danelle E Chasidy [id number] Danelle E Chasidy Notes Date Note Type Note Provider Name and Address Organization Details Recorded Time 09/16/2019 text/html Follow-up for is pleasant 64-year-old woman previously followed by Dr. Salvador for seropositive rheumatoid arthritis. I have seen her a few times now. 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 Stopped the MTX Apr 2016 (her decision). .Joints doing well. 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 No flare in sxs. Has osteoporosis. Now on Boniva past few months. Had repeat BMD (done on different machine) which showed hip -3.1. Odilon Keyes MD [address] [place], [address], [facility] 09/16/2019 08:58:35 04/30/2020 text/html This is a virtua l phone visit. Patient is 64 y old female following-up on rheumatoid arthritis.Patient used to see Dr. Keyes. Patient states that she is feeling good, no joint pain or swelling, she occasionally gets some pain and swelling in ankles and wrists but it has been pretty good lately.She is on Humira every 2 weeks. She is watching her diet and she thinks it is helping her.Patient is having a surgery on for removal of a suspicious growth under her nose, non melanoma skin cancer per the patient. As per previous office visit with Dr. Keyes: Follow-up for this pleasant 64-year-old woman previously followed by Dr. Salvador for seropositive rheumatoid arthritis. I have seen her a few times now. 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 Stopped the MTX Apr 2016 (her decision). .Joints doing well. 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 No flare in sxs. Has osteoporosis. Now on Boniva past few months. Had repeat BMD (done on different machine) which showed hip -3.1. Irma Ortiz MD [address] [place], [address], [facility] 04/30/2020 12:47:39 05/29/2021 text/html Patient is 65 y old female following-up on rheumatoid arthritis.Patient is doing well. No pain,no swelling, no stiffness. Occasional aching in her feet.Patient is on Humira, she is tolerating the medication, no side effects reported. As per previous office visit:Patient used to see Dr. Keyes. Patient states that she is feeling good, no joint pain or swelling, she occasionally gets some pain and swelling in ankles and wrists but it has been pretty good lately.She is on Humira every 2 weeks. She is watching her diet and she thinks it is helping her.Patient is having a surgery on for removal of a suspicious growth under her nose, non melanoma skin cancer per the patient. As per previous office visit with Dr. Keyes:Follow-up for this pleasant 64-year-old woman previously followed by Dr. Salvador for seropositive rheumatoid arthritis. I have seen her a few times now. 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 Stopped the MTX Apr 2016 (her decision). .Joints doing well. 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 No flare in sxs. Has osteoporosis. Now on Boniva past few months. Had repeat BMD (done on different machine) which showed hip -3.1. Irma Ortiz MD [address] [place] [address], [address], [facility] 05/29/2021 11:53:19 10/23/2021 text/html Patient is 66 y old female following-up on rheumatoid arthritis.Patient is doing well. No pain,no swelling, no stiffness. 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 As per previous office visit:Patient used to see Dr. Keyes. Patient states that she is feeling good, no joint pain or swelling, she occasionally gets some pain and swelling in ankles and wrists but it has been pretty good lately.She is on Humira every 2 weeks. She is watching her diet and she thinks it is helping her.Patient is having a surgery on for removal of a suspicious growth under her nose, non melanoma skin cancer per the patient. Labs reviewed: normal inflamamtory markers. As per previous office visit with Dr. Keyes:Follow-up for this pleasant 64-year-old woman previously followed by Dr. Salvador for seropositive rheumatoid arthritis. I have seen her a few times now. 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 Stopped the MTX Apr 2016 (her decision). .Joints doing well. 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 No flare in sxs. Has osteoporosis. Now on Boniva past few months. Had repeat BMD (done on different machine) which showed hip -3.1. Irma Ortiz MD [address] [place] [address], [phone], [facility] [place]/23/2021 15:08:35 2022 text/html Patient is 66 y old female following-up on rheumatoid arthritis. Patient complains of pain in the hands as she thinks t hat she had a flare after pulling her grandchild for 2.5 miles.She was in the hospital for anaplasmosis tick disease. She was put on doxycycline.She stopped Humira for 5 weeks and she restarted Humira 4 weeks ago and she feels ok now.State sthat her right 3rd and 4th finger stick together. Patient is on Humira every 3 weeks, she is tolerating the medication, no side effects reported.Patient previously failed Enbrel and methotrexate. Humira started in December 2015. Has osteoporosis. On Boniva. Labs reviewed. Irma Ortiz MD [address] [place] [address], [phone], [facility] [place] 2022 09:52:53 OBGyn Episode No OBEpisode recorded.
--- OUTSIDE RECORDS SUMMARY | 2024-07-29 11:30 | XMS_ITS | Continuity of Care Document ---
Author Organization [facility] Address [address] [place] [address]- Care Team Providers Care Furnace And Wash Equipment Operator Name Role Phone Marilin CHAUDHARI, Hannah Espinosa Primary Care Physic [place] [facility] [place] 07[place] [facility] [address] [place] [address]- Encounter Type: Triage Allergies, Adverse Reactions, Alerts [...] 12/11/22 Recorded zoster vaccine, inactivated 09/30/22 Recorded [id number] bivalent booster vax 07/30/22 Given pneumococcal 23-valent [...] (Td) 12 11/18/05 Record ed 1Result Comment: [facility]: [id number] 2Result Comment: [facility] [id number] 3Result Comment: pt assessed for contraindications administered without incident, pt kurt well [facility]: [id number] 4Result Comment: [06/24/2017] done at Rheumatology office 5Result Comment: [10/06/2016] done at shipper and receiving 6Location History: [place] [facility] 7Location History: Dr. Carlos Man 8Location [...] 0 Refills, Maintenance, 06/03/24 1:01:00PM EST, Ointment, [facility]/pharmacy #[id number], Partial fill upon patient request if [...] 0 Refills, Maintenance, 04/22/23 11:17:00 AM EDT, [facility]/pharmacy #[id number], 167, cm, 04/22/23 10:23:00 EDT, Height, 65.4, kg, 12/09/22 7:16:00 EDT, Dry Weight Start Date: 04/22/23 Status: Ordered Quantity: 2.0 Unit: each Repeat number: 1 ibuprofen 600 mg oral tablet 600 mg, 1, tablet, By Mouth, Every 8 hours, # 30 tablet, Refills 0, Tot. Refills 0, Maintenance, 11/04/21 9:10:00 AM EDT, Route to Pharmacy Electronically, [facility]/pharmacy #[id number], Partial fill upon patient request if [...] Refills, Soft Stop, 06/10/24 12:05:00 PM EST, [facility]/pharmacy #[id number], 160, cm, 06/01/24 11:10:00 EST, Height, 66.3, kg, 04/26/24 13:27:00 EDT, Dry Weight Start Date: 06/10/24 Stop Date: 12/07/24 Status: Ordered Quantity: 90.0 Unit: tablet Repeat number: 2 lisinopril 20 mg oral tablet 20 mg, 1, tablet, By Mouth, Daily, # 90 tablet, Refills 3, Tot. Refills 3, Maintenance, 03/31/24 5:59:00 PM EDT, Route to Pharmacy Electronically, 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 Confirmed Active Pleural effusion Confirmed Active [...] Personnel Name: Marilin CHAUDHARI, Hannah Espinosa Position: [facility] Physician - Primary Care Member Role: PCP Address: [address] [place] [address] Telecom: Name: Ana Barrientos RN Position: [facility] RN Member Role: Primary Care Nurse Care Team Related Persons Name: ZIA HOFFMANN Name: IVONNE MEDEL Insurance Providers Guarantor name: JORDAN CORTES Health Plan Information #: 1 Payer: MEDICARE PART B OUTPT Member Number: NA Policy Number: NA Group Number: NA Health Plan Information #: 2 Payer: [facility] Member Number: NA Policy Number: NA Group Number: NA
[2024-08-03 13:18] LABS: Vitamin D 25-OH, D2 <4 ng/mL; Vitamin D 25-OH, D3 30 ng/mL; Vitamin D 25-OH, Total 30 ng/mL (30-100)
== END 2024-07-29 10:14 | disposition home or self-care (01) ==
LOC: HO.LAB 10:13
PROVIDERS: Visit Provider Student in an Organized Health Care Education/Training Program
DX: M06.9 Rheumatoid arthritis, unspecified (principal); E55.9 Vitamin D deficiency, unspecified; M81.0 Age-related osteoporosis without current pathological fracture
CPT/HCPCS: 36415; 80053; 82306; 85025; 85652; 86140; 96372; J3111

== ENCOUNTER 2024-07-29 10:40 | Outpatient (AMB) | payer MEDICARE, OTHER, SELFPAY ==
--- NOTE | 2024-07-29 11:01 | AM.OFFVISNUR ---
Intake Visit Reasons: evenity #6 Allergies abaloparatide [From Tymlos] Adverse Reaction (Severe, Verified 04/15/24 14:21) Dizziness Bee Stings Adverse Reaction (Unknown, Uncoded 04/15/24 14:21) Swelling Office Meds romosozumab-aqqg 210 mg/2.34 mL(105 mg/1.17 mL x2)subcutaneous syringe Performing Provider: Golden Ling MD Performing Location: [facility] [place] Rheumatology Administered by: Courtney Suh RN on 07/29/24 11:01 Dose Route Admin Location Dispensed Lot Number Expiration Date [facility] Tour Coordinator 210 mg subcut bilateral upper arms 2.34 mL [id number] 10/24/26 36949-773-86 AMGEN Comments: Consent form signed by patient. Pt tolerated injections well. Pt denies any adverse reactions to previous injections. Assessment & Plan Assessment & Plan Orders: Orders AMB Romosozumab Injection Patient Supplied Today M81.0 - Age-related osteoporosis without current pathological fracture Medications: New romosozumab-aqqg 210 mg (2.34 mL) subcut ONCE 2.34 mL 0RF M81.0 - Age-related osteoporosis without current pathological fracture
--- OUTSIDE RECORDS SUMMARY | 2024-07-29 12:13 | XMS_ITS | Continuity of Care Document ---
Author Organization [facility] Address [address] [place] [address]- Care Team Providers Care Parish Nurse Name Role Phone Marilin CHAUDHARI, Hannah Espinosa Primary Care Physic [place] En[place] [facility] [place] Date(s): 06/07/24 - 07/07/24 [facility] [address] [place], [place] [address] Encounter Type: Triage Allergies, Adverse Reactions, Alerts [...] 12/11/22 Recorded zoster vaccine, inactivated 09/30/22 Recorded [id number] bivalent booster vax 07/30/22 Given pneumococcal 23-valent [...] (Td) 12 11/18/05 Record ed 1Result Comment: [facility]: [id number] 2Result Comment: [facility] [id number] 3Result Comment: pt assessed for contraindications administered without incident, pt kurt well [facility]: 06289-392-92 4Result Comment: [06/24/2017] done at Rheumatology office 5Result Comment: [10/06/2016] 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 Carlos Man 8Location [...] 0 Refills, Maintenance, 06/03/24 1:01:00PM EST, Ointment, [facility]/pharmacy #[id number], Partial fill upon patient request if [...] 0 Refills, Maintenance, 04/22/23 11:17:00 AM EDT, [facility]/pharmacy #[id number], 167, cm, 04/22/23 10:23:00 EDT, Height, 65.4, kg, 12/09/22 7:16:00 EDT, Dry Weight Start Date: 04/22/23 Status: Ordered Quantity: 2.0 Unit: each Repeat number: 1 ibuprofen 600 mg oral tablet 600 mg, 1, tablet, By Mouth, Every 8 hours, # 30 tablet, Refills 0, Tot. Refills 0, Maintenance, 11/04/21 9:10:00 AM EDT, Route to Pharmacy Electronically, [facility]/pharmacy #[id number], Partial fill upon patient request if [...] Refills, Soft Stop, 06/10/24 12:05:00 PM EST, [facility]/pharmacy #[id number], 160, cm, 06/01/24 11:10:00 EST, Height, 66.3, kg, 04/26/24 13:27:00 EDT, Dry Weight Start Date: 06/10/24 Stop Date: 12/07/24 Status: Ordered Quantity: 90.0 Unit: tablet Repeat number: 2 lisinopril 20 mg oral tablet 20 mg, 1, tablet, By Mouth, Daily, # 90 tablet, Refills 3, Tot. 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 for routine bobbin winder tender exam Confirmed Active Pleural effusion Confirmed Active [...] Personnel Name: Marilin CHAUDHARI, Hannah Espinosa Position: [facility] Physician - Primary Care Member Role: PCP Address: [address] [place] [address] Telecom: Name: Ana Barrientos RN Position: [facility] RN Member Role: Primary Care Nurse Care Team Related Persons Name: ZIA HOFFMANN Name: IVONNE MEDEL Insurance Providers Guarantor name: JORDANDevaughn [employer]NE Health Plan Information #: 1 Payer: MEDICARE PART B OUTPT Member Number: NA Policy Number: NA Group Number: NA Health Plan Information #: 2 Payer: [facility] Member Number: NA Policy Number: NA Group Number: NA
== END 2024-07-29 10:57 | disposition home or self-care (01) ==
PROVIDERS: PCP Family Medicine; Visit Provider Student in an Organized Health Care Education/Training Program
DX: M81.0 Age-related osteoporosis without current pathological fracture (principal)

== ENCOUNTER → 2024-09-06 11:08 | Outpatient (BNVA) | payer MEDICARE, OTHER, SELFPAY | PROVIDERS: PCP Family Medicine | DX: M81.0 Age-related osteoporosis without current pathological fracture (principal) | CPT/HCPCS: 96372; J3111 ==

== ENCOUNTER 2024-10-04 11:00 | Outpatient (AMB) | payer MEDICARE, OTHER, SELFPAY ==
--- NOTE | 2024-10-04 11:13 | AM.OFFVISNUR ---
Intake Visit Reasons: Evenity #8 Allergies abaloparatide [From Tymlos] Adverse Reaction (Severe, Verified 04/15/24 14:21) Dizziness Bee Stings Adverse Reaction (Unknown, Uncoded 04/15/24 14:21) Swelling Office Meds romosozumab-aqqg 210 mg/2.34 mL(105 mg/1.17 mL x2)subcutaneous syringe Performing Provider: Kiana Garcia MD Performing Location: [facility] [place] Endocrinology Administered by: Courtney Suh RN on 10/04/24 11:13 Dose Route Admin Location Dispensed Lot Number Expiration Date [facility] [employer] Comment[employer] 210 mg subcut bilateral upper arms 2.34 mL [id number] 10/24/26 17862-740-61 AMGEN Comments: Consent form signed by patient. Pt tolerated injection well. Pt denies any adverse reactions to previous injections. Assessment & Plan Assessment & Plan Orders: Orders AMB Romosozumab Injection Patient Supplied Today M81.0 - Age-related osteoporosis without current pathological fracture Medications: New romosozumab-aqqg 210 mg (2.34 mL) subcut ONCE 2.34 mL 0RF M81.0 - Age-related osteoporosis without current pathological fracture Coding
--- OUTSIDE RECORDS SUMMARY | 2024-10-04 13:32 | XMS_ITS | Continuity of Care Document ---
Author Organization [facility]ian [facility] [employer] Address [address] [place] [address]- Care Team Providers Care Heat Treating Furnace Tender Name Role Phone Marilin CHAUDHARI, Hannah Espinosa Primary Care Physic [place] Encounter [facility] [place] Date(s): 08/30/24 - 09/06/24 [facility] [address] [place], [place] [address] Attending Physician: Veronica Novoa MD Encounter Type: Office Visit Allergies, Adverse Reactions, Alerts No Known Medication Allergies Substance Criticality Severity Reaction Reaction Severity Status Bee Stings feet and face swelling Active Immunizations Given and Recorded Vaccine Date Status Refusal Reason influenza virus vaccine, inactivated 08/10/24 Nam rded influenza virus vaccine, inactivated 1 08/17/23 Gi [...] 12/11/22 Recorded zoster vaccine, inactivated 09/30/22 Recorded [id number] bivalent booster vax 07/30/22 Given pneumococcal 23-valent [...] (Td) 12 11/18/05 Record ed 1Result Comment: [facility]: [id number] 2Result Comment: [facility] [id number] 3Result Comment: pt assessed for contraindications administered without incident, pt kurt well [facility]: [id number] 4Result Comment: [06/24/2017] done at Rheumatology office 5Result Comment: [10/06/2016] done at licensed psychologist 6Location History: Combust[facility] Office 7Location History: Dr. Carlos Man [...] 0 Refills, Maintenance, 06/03/24 1:01:00PM EST, Ointment, [facility]/pharmacy #[id number], Partial fill upon patient request if the prescription is for a schedule II opioid drug., 1 application Topically 2 times a day,PRN:Itch, 160, cm, 06/01/24 11:10:00 EST, Height, 66.3, kg, 04/26/24 13:27:00 EDT, Dry Weight Start Date: 06/03/24 Status: Ordered Quantity: 45.0 Unit: g Repeat number: 1 estradiol 0.1 mg/g vaginal cream See Instructions, 1 gram vaginally every day for two weeks then twice weekly, # 42.5 Gm, 6 Refills,Maintenance, 08/30/24 2:43:00 PM EST, [facility]/pharmacy #[id number], Partial fill upon patient request if the prescription is for a schedule II opioid drug., 160, cm, 08/30/24 14:30:00 EST, Height, 66.3, kg, 04/26/24 13:27:00 EDT, Dry Weight Start Date: 08/30/24 Status: Ordered Quantity: 42.5 Unit: g Repeat number: 7 Humira Pen 40 mg/0.4 mL subcutaneous kit See Instructions, INJECT 40 MG UNDER THE SKIN EVERY TWO WEEKS, # 2 each, 0 Refills, Maintenance, 04/22/23 11:17:00 AM EDT, [facility]/pharmacy #[id number], 167, cm, 04/22/23 10:23:00 EDT, Height, 65.4, kg, 12/09/22 7:16:00 EDT, Dry Weight Start Date: 04/22/23 Status: Ordered Quantity: 2.0 Unit: each Repeat number: 1 ibuprofen 600 mg oral tablet 600 mg, 1, tablet, By Mouth, Every 8 hours, # 30 tablet, Refills 0, Tot. Refills 0, Maintenance, 11/04/21 9:10:00 AM EDT, Route to Pharmacy Electronically, [facility]/pharmacy #[id number], Partial fill upon patient request if [...] Refills, Soft Stop, 06/10/24 12:05:00 PM EST, [facility]/pharmacy #[id number], 160, cm, 06/01/24 11:10:00 EST, Height, 66.3, kg, 04/26/24 13:27:00 EDT, Dry Weight Start Date: 06/10/24 Stop Date: 12/07/24 Status: Ordered Quantity: 90.0 Unit: tablet Repeat number: 2 lisinopril 20 mg oral tablet 20 mg, 1, tablet, By Mouth, Daily, # 90 tablet, Refills 3, Tot. Refills 3, Maintenance, 03/31/24 5:59:00 PM EDT, Route to Pharmacy Electronically, [facility]/pharmacy #[id number], Partial fill upon patient request if [...] etc.), # 90 tablet, 3 Refills, Maintenance, 1/22/24 11:57:00 AM EST, 167, cm, 08/17/23 11:37:00 [...] Maintenance, 09/24/23 1:09:00 PM EST, ER Tablet, 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 Vital Signs Most recent to oldest [Reference Range]: 1 Height 160 cm (08/30/24 2:30 PM) Weight 63.4 kg (08/30/24 2:30 PM) Body Mass Index [18.5-24.99 kg/m2] 24.77 kg/m2 (08/30/24 2:30 PM) Blood Pressure [90-138/55-84 mm Hg] 124/ 68mm Hg (08/30/24 2:30 PM) Blood pressure sites Arm, right (08/30/24 2:30 PM) Weight Obtained Via Standing scale (08/30/24 2:30 PM) Social History Social History Type Response Smoking Status Former smoker; Tobac co user in household: No; Other: Quit 30 years ago; entered on: 04/20/14 Sex Sex Representation Female (finding) Note * Maribel Bryant: PERFORM Event Display: Patient Education/Instruction Authored Date: [id number] Ambulatory Adult Visit Summary [facility]YN [address] [place] [address] Name: JORDAN CORTES : 1955?? Visit: 08/30/2024 13:54?? Ambulatory Visit Instructions ?? Your Care Team Primary Care Provider Marilin CHAUDHARI, Hannah Espinosa? This Visit Provider Bright CHAUDHARI , Veronica Hassan Vitals Signs Systolic Blood Pressure: 124 mm Hg Height: 160 cm Diastolic Blood Pressure: 68 mm Hg Weight: 63.4 kg ?? Body Mass Index: 24.77 kg/m2 ?? Body surface area: 1.68 What to do next Future Orders Urine Culture - Routine, Urine Clean Catch, Once, 04/07/24 11:31:00 EDT, Order for Today, [facility], Urine Clean Catch?? Complete Urinalysis - Routine, Once, 04/07/24 11:31:00 EDT, Order for Today, [facility], Urine?? Medications The list below reflects the information in our records and provided by you today along with any changes made during this visit. Please continue your medications until treatment is completed or stopped by your provider. If this is different from the information you have or there are other questions,please contact the prescribing provider. What How Much When Why Instructions New Estradiol Topical (estradiol 0.1 mg/ g vaginal cream) See instructions Refills: 6 1 gram vaginally every day for two weeks then twice weekly ?? Pickup at [facility]/pharmacy #[id number] Unchanged Acetaminophen (acetaminophen 500 mg oral capsule) 2 capsule Oral Every 8 hours as needed for for fever Unchanged Adalimumab (Humira Pen 40 mg/ 0.4 mL subcutaneous kit) See instructions INJECT 40 MG UNDER THE SKIN EVERY TWO WEEKS ?? Unchanged Ascorbic Acid (Vitamin C) 500 Milligram Oral Daily Unchanged BuPROpion (Wellbutrin XL 150 mg/ 24 hours oral tablet, extended release) 1 tab(s) Oral Every 24 hours Rheumatoid arthritis Unchanged Calcium And Vitamin D Combination 1 tab(s) Oral Daily Unchanged Clobetasol Topical (clobetasol 0.05% topical ointment) 1 ronna Topically Twice a day as needed for Itch Unchanged Ibuprofen (ibuprofen 600 mg oral tablet) 1 tab(s) Oral Every 8 hours Unchanged Levothyroxine (levothyroxine 75 mcg (0.075 mg) oral tablet) 1 tab(s) Oral Daily Duration: 90 Days Unchanged Lisinopril (lisinopril 20 mg oral tablet) 1 tab(s) Oral Daily Unchanged Multivitamin Daily Unchanged Pantoprazole (pantoprazole 40 mg oral delayed release tablet) 1 tab(s) Oral Daily Down titrate to discontinuae medication over the next two months. (Every other day for two weeks, then every third day for two weeks, etc.) ?? Pharmacy Information [facility]/pharmacy #[id number]: [address], [place] [id number] [phone] Test Performed Below is a partial list of the tests performed during your Visit. You may have had other tests and procedures not included in this list. Please discuss all test results with your provider. POC UA ([facility]) Lab Test Results Below is a partial list of the most recent Laboratory test results done during your Visit. You may have had other tests and procedures not included in this list. Please discuss all test results with your provider. Test Name Test Result Date/Time POC UA Glucose NEGATIVE 08/30/2024 14:25 EST POC UA Bilirubin NEGATIVE 08/30/2024 14:25 EST POC UA Ketones NEGATIVE 08/30/2024 14:25 EST POC UA Specific [place] 1.015 08/30/2024 14:25 EST POC UA Blood NEGATIVE 08/30/2024 14:25 EST POC UA PH 5.5 1 08/30/2024 14:25 EST POC UA Protein NEGATIVE 08/30/2024 14:25 EST POC UA Urobilinogen 0.2 mg/dL 08/30/2024 14:25 EST POC UA Nitrite NEGATIVE 08/30/2024 14:25 EST POC UA Leukocytes NEGATIVE 08/30/2024 14:25 EST POC UA Color YELLOW 08/30/2024 14:25 EST POC UA Clarity CLEAR 08/30/2024 14:25 EST Medications and Immunizations Administered Medications Given During Visit No medications given during this visit.?? Allergies (NKA means No Known Allergies) Bee Stings??(feet and face swelling) No Known Medication Allergies Common Emergency Awareness Tips IS IT A STROKE? Act FAST and Check for these signs: FACE Does the face look uneven? ARM Does one arm drift down? SPEECH Does their speech sound strange? TIME Call at any sign of stroke ?? Heart Attack Signs Chest discomfort: Most heart attacks involve discomfort in the center of the chest and lasts more than a few minutes, or goes away and comes back. It can feel like uncomfortable pressure, squeezing, fullness or pain. Discomfort in upper body: Symptoms can include pain or discomfort in one or both arms, back, neck, jaw or stomach. Shortness of breath: With or without discomfort. Other signs: Breaking out in a cold sweat, nausea, or lightheaded. Remember, MINUTES DO MATTER. If you experience any of these heart attack warning signs, call to get immediate medical attention! ?? Smoking can increase your chances of developing chronic health problems and can cause harmful effects to other family members in your house. If you smoke, you are strongly encouraged to quit. Please call [facility] at [phone] or 1-469-312[employer] (6560) or log in to [email or web address] for referrals to smoking cessation programs. ?? The National Suicide Prevention Hotline is available 16/02 if you or someone you know needs to find a reason to keep living. By calling 0-743-295-Govtoday (4885) you'll be connected to a skilled, trained counselor at a crisis center in your area. [facility] You can view and manage your care through the patient portal or by using a health care ronna of your choosing. [employer] is a website that allows you to securely view your medical information including your hospital discharge summary, office visit summaries, medications and follow-up visits. You can also request appointments, renew medications, and request access to your medical information using a health care ronna of your choosing, or just ask a question. You can enroll at [email or web address] or register during your next office visit. [facility], in keeping with [facility] guidance, no longer requires face masks for staff, patientsor visitors in most situations. Similiar to time spent indoors at other locations, there is the chance that you were exposed to repiratory viruses during your time with us (such as flu or COVID-19). If you develop symptoms concerning for a viral respiratory infection, please seek testing (and treatment if indicated) from your medical provider or home test kit. ?? Disclaimer: The information provided is of a general nature and is intended to be used in conjunction with the recommendations and advice of your health care practitioner. Every effort has been made to ensure that the information provided is accurate and complete at the time it is provided to you however, as your needs change, or, as new information becomes available, different or additional instructions may be required. ?? If you have questions, please consult with your primary care provider or pharmacist, as appropriate. This information is not intended to serve as substitution for assessment and evaluation by a qualified health care provider. If you do not have a primary care provider, you may find a [facility] provider by calling [facility] at [phone]. Patient Care team information Care Team Personnel Name: Marilin CHAUDHARI, Hannah Espinosa Position: [facility] Physician - Primary Care Member Role: PCP Address: [address] [place] [address] Telecom: Name: Ana Barrientos RN Position: [facility] RN Member Role: Primary Care Nurse Care Team Related Persons Name: ZIA HOFFMANN Name: IVONNE MEDEL Insurance Providers Guarantor name: JORDAN CORTES Health Plan Information #: 2 Payer: [facility] Member Number: [id number] Policy Number: NA Group Number: [id number] Health Plan Information #: 1 Payer: MEDICARE PART B OUTPT Member Number: [id number] Policy Number: NA Group Number: NA
--- OUTSIDE RECORDS SUMMARY | 2024-10-04 13:33 | XMS_ITS | Data Portability ---
Author Organization [facility], , [facility] Address [address] [place] [address] Care Team Providers Care Frame Fixer Name Role Phone JOSE ANGEL WALKER Primary Care Provider Assessment No assessment recorded. Plan of Treatment Reminders Order Date Submit Date Provider Last Modified By Organization Details Last Modified Time Details Appointments None recorded. Lab C-reactive protein, quantitati ve, serum or plasma 2021 022 [facility], [address] [place] [address], [address], 10:32:29 ESR (erythrocy te sedimentat ion rate), blood 2021 022 [facility], [address] [place] [address], [address], 15:47:30 C-reactive protein, quantitati ve, serum or plasma 2020 021 [facility], [address] [place] [address], [address], 11:37:59 ESR (erythrocy te sedimentat ion rate), blood 2020 021 [facility], [address] [place] [address], [address], 14:00:44 Referral hand surgeon referral - Patient unable to separate the third and forth right fingers. 2021 eday15 Gardenia Tate MD, [address] [place] [address], [address], 2 15:31:02 Procedures None recorded. Surgeries None recorded. Imaging None recorded. Medication Orders prednisone 10 mg tablet 2021 023 [id number], [address] [place], [address], 3 08:35:18 Humira(CF) Pen 40 mg/0.4 mL subcutaneo us kit 2021 023 [facility], [address] [place] [address], [address], 3 08:35:18 Humira(CF) Pen 40 mg/0.4 mL subcutaneo us kit 2019 020 [email or web address], [address] [place] [address], [address], 3 08:31:12 Patient TargetsNo targets recorded. Patient InstructionsNo instructions recorded. Reason for Referral Hand Surgeon Referral for [place] pain Patient unable to separate the third and forth right fingers. Referring Physician: Irma Ortiz, Rheumatology, Encounter Date: 2022 Results Created Date Observation Date Name Description Value Unit Range Abnormal Flag Note LastModifiedBy Organization Detail LastModifiedTime 05/29/20 21 05/30/2021 C-HERB CTIVE PROTE IN-QU ANTIT ATIVE C-reactive protein -quant <2.0 mg/L 0.0-9. 0 < verif iied by rerun JLW Not Available [facility] [address] [facility], [place], [address], 05/30/2021 11:37:59 05/29/2005/30/2021 SED RATE BY MODIF IED LOCO HIREN sed rate by modified marcelren 9 mm/h < or = 30 normal Not Available [facility] [address], [place], [address], 05/30/2021 17:32:09 06/09/20 22 06/09/2022 CBC W/O AUTO DIFF WBC 7.83 K/??L 3.98-1 0.04 Not Available [address], [address], 06/09/2022 14:43:29 06/09/20 22 06/09/2022 CBC W/O AUTO DIFF RBC 3.55 M/??L 3.93-5 .22 low Not Available [address], [address], 06/09/2022 14:43:29 06/09/20 22 06/09/2022 CBC W/O AUTO DIFF HGB 10.4 g/dL 11.2-1 5.7 low Not Available [address], [address], 06/09/2022 14:43:29 06/09/20 22 06/09/2022 CBC W/O AUTO DIFF HCT 32.9 % 34.1-4 4.9 low Not Available [address], [address], 06/09/2022 14:43:29 06/09/20 22 06/09/2022 CBC W/O AUTO DIFF MCV 92.7 fL 79.4-9 4.8 Not Available [address], [address], 06/09/2022 14:43:29 06/09/20 22 06/09/2022 CBC W/O AUTO DIFF MCH 29.3 pg 25.6-3 2.2 Not Available [address], [address], 06/09/2022 14:43:29 06/09/20 22 06/09/2022 CBC W/O AUTO DIFF MCHC 31.6 g/dL 32.2-3 5.5 low Not Available [address], [address], 06/09/2022 14:43:29 06/09/20 22 06/09/2022 CBC W/O AUTO DIFF plt 418 K/??L 182-36 9 high Not Available [address], [address], 06/09/2022 14:43:29 06/09/20 22 06/09/2022 CBC W/O AUTO DIFF RDW-CV 14.2 % 11.7-1 4.4 Not Available [address], [address], 06/09/2022 14:43:29 06/09/20 22 06/09/2022 ESR sed rate 45.0 0.0-15 .0 high Not Available [address], [address], 06/09/2022 15:47:30 06/09/20 22 2022 COMP. METAB OLIC PANEL glucose 124 mg/dL 70-100 high Not Available [address], [address], 2022 10:32:27 06/09/20 22 2022 COMP. METAB OLIC PANEL BUN 16 mg/dL 7-18 Not Available [address], [address], 2022 10:32:27 06/09/20 22 2022 COMP. METAB OLIC PANEL creatinine 0.8 mg/dL 0.8-1. 3 Not Available [address], [address], 2022 10:32:27 06/09/20 22 2022 COMP. METAB OLIC PANEL B/C 20.0 ratio Not Available [address], [address], 2022 10:32:27 06/09/20 22 2022 COMP. METAB [...] be used in pregn ori. Not Available [address], [address], 2022 10:32:27 06/09/20 22 2022 COMP. METAB OLIC PANEL sodium 139 mmol/ L 136-14 5 Not Available [address], [address], 2022 10:32:27 06/09/20 22 2022 COMP. METAB OLIC PANEL potassium 4.4 mmol/ L 3.5-5. 1 Not Available [address], [address], 2022 10:32:27 06/09/20 22 2022 COMP. METAB OLIC PANEL chloride 102 mmol/ L 96-107 Not Available [address], [address], 2022 10:32:27 06/09/20 22 2022 COMP. METAB OLIC PANEL anion gap 9.1 5.0-15 .0 Not Available [address], [address], 2022 10:32:27 06/09/20 22 2022 COMP. METAB OLIC PANEL CO2 28 mmol/ L 21-32 Not Available [address], [address], 2022 10:32:27 06/09/20 22 2022 COMP. METAB OLIC PANEL calcium 8.9 mg/dL 8.5-10 .3 Not Available [address], [address], 2022 10:32:27 06/09/20 22 2022 COMP. METAB OLIC PANEL total protein 7.3 g/dL 6.4-8. 2 Not Available [address], [address], 2022 10:32:27 06/09/20 22 2022 COMP. METAB OLIC PANEL albumin 3.8 g/dL 3.4-5. 0 Not Available [address], [address], 2022 10:32:27 06/09/20 22 2022 COMP. METAB OLIC PANEL globulin 3.5 g/dL Not Available [address], [address], 2022 10:32:27 06/09/20 22 2022 COMP. METAB OLIC PANEL A/G 1.1 ratio 0.8-2. 0 Not Available [address], [address], 2022 10:32:27 06/09/20 22 2022 COMP. METAB OLIC PANEL total bilirubin 0.50 mg/dL 0.00-1 .00 Not Available [address], [address], 2022 10:32:27 06/09/20 22 2022 COMP. METAB OLIC PANEL AST 13 U/L 0-37 Not Available [address], [address], 2022 10:32:27 06/09/20 22 2022 COMP. METAB OLIC PANEL ALT 19 U/L 6-63 Not Available [address], [address], 2022 10:32:27 06/09/20 22 2022 COMP. METAB OLIC PANEL alk. phos. 75 U/L 50-136 Not Available [address], [address], 2022 10:32:27 06/09/20 22 2022 LIPID PANEL cholesterol 207 mg/dL <200 mg/dl Keri able 200-2 39 mg/dl Borde rline High >240 mg/dl High Not Available [address], [address], 2022 10:32:28 06/09/20 22 2022 LIPID PANEL triglyceride s 55 mg/dL <150 mg/dL Caitlin l 150-1 99 mg/dL Borde rline High 200-4 99 mg/dL High >500 mg/dL Very High Not Available [address], [address], 2022 10:32:28 06/09/20 22 2022 LIPID PANEL direct HDL 76 mg/dL <40 mg/dl - Major Risk for CHD >60 mg/dl - Negat rebecca Risk for CHD Not Available [address], [address], 2022 10:32:28 06/09/20 22 2022 DIREC T [...] r is not keravalentina corrales. Not Available [address], [address], 2022 10:32:29 06/09/20 22 2022 C-HERB CTIVE PROTE IN-QU ANTIT ATIVE C-reactive protein -quant 25.0 mg/L 0.0-9. 0 high Not Available [address], [address], 2022 10:32:29 Result Notes None recorded. Problems Name Problem SNOMED Code Status Onset Date Resolution Date Notes Provider Name and Address Organization Details Recorded Time Seropositive rheumatoid arthritis 691971410 Active Odilon Keyes MD [address] [place] [address], [address], [facility] 6 07:56:04 Anemia 192843209 Active Odilon Keyes MD [address] [place] [address], [address], [facility] 6 07:56:04 Osteoporosis 74104029 Active 2017 Odilon Keyes MD [address] [place] [address], [address], [facility] 8 19:07:30 Problem Notes None recorded. Procedures Surgical History Date Name Laterality Status Provider Name and Address Organization Details Recorded Time 9 Generic Procedure Template completed Odilon Keyes MD [address] [place] [address], [phone], [facility] 02/05/2019 14:27:25 Imaging Results None recorded. Procedure Notes None recorded. Medical Equipment None Reported. Allergies Allergen ID Allergen Name Allergen Category Reaction Reaction Severity Criticality Documentation Date Start Date Code Code System Note Provider Name and Address Organization Details Recorded Time 19640902 honey bee venom medicatio n Not available Not available Not available 11/14/2016 92557 7 RxNorm Yany Tyler LPN [facility] 7 09:54:03 Medications Name Sig Start [...] Updated DateTime 0 167.64 cm 24 kg/m2 66194.5 4 g 64 /min 140 mm[Hg] 82 mm[Hg] Anne-Marie Rodarte LPN [facility] 0 08:28:42 Date Recorded Body height Body temperature Provider N laura and Address Organization Details Last Updated DateTime 04/30/2020 167.64 cm 96.4 [degF] Nanci Pace [employer] [facility] 04/30/2020 09:36:28 Date Recorded Body weight Heart rate Systolic blood pressure Diastolic blood pressure Provider Name and Address Organization Details Last Updated DateTime 05/29/2021 84636.82 g 74 /min 118 mm[Hg] 62 mm[Hg] Fransisca Sandoval LPN [facility] 05/29/2021 11:11:55 Date Recorded Body weight Heart rate Systolic blood pressure Diastolic blood pressure Provider Name and Address Organization Details Last Updated DateTime 10/23/2021 67456.36 g 64 /min 110 mm[Hg] 78 mm[Hg] Fransisca Sandoval [employer] [facility] 10/23/2021 13:47:19 Date Recorded Body weight Heart rate Systolic blood pressure Diastolic blood pressure Provider Name and Address Organization Details Last Updated DateTime 2022 70188.84 g 66 /min 108 mm[Hg] 72 mm[Hg] Fransisca Sandoval LPN [facility] 2022 08:11:09 Social History Question Answer Notes LastModified by Organizat ion Details LastModified Time Tobacco Smoking Status Former Smoker John Barrientos LPN [facility] 10/09/2015 14:23:17 What Is Your Level Of Alcohol Consumption? Moderate 1-2 Glasses Wine 2-3 D/wk Information not available 10/09/2015 How Much Tobacco Do You Chew? None [email or web address] Information not available 10/09/2015 What Is Your Occupation? [employer] Information not available 10/09/2015 When Did You Quit Smoking? 14+yearssinkathy amin [email or web address] Information not available 10/09/2015 How Many Days In The Past Year Have You Had A Heavy Drinking Consumption (4+ Female, 5+ Male)? 20 Information not available 10/09/2015 Marital Status Informatio [...] virus, quadrivalent, PF 6 completed Not Available [facility] 08/13/2019 02:21:04 Influenza, split virus, quadrivalent, PF 7 completed Not Available [facility] 08/13/2019 02:31:53 Influenza, split virus, quadrivalent, preservative 8 completed MARK Ochoa [facility] 06/14/2018 14:31:22 COVID-19, mRNA, LNP-S, PF, 100 mcg/0.5mL dose or 50 mcg/0.25mL dose 1 completed MARK Long, [facility] 06/03/2021 08:48:43 COVID-19, mRNA, LNP-S, PF, 100 mcg/0.5mL dose or 50 mcg/0.25mL dose 1 completed Anne-Marie Yosemite, [employer] [facility] 06/[facility]/2021 08:48:56 Td (adult) 6 completed Anne-Marie Yosemite, [employer] [facility] 06/03/2021 08:49:59 Td (adult) 3 completed Anne-Marie Yosemite, [employer] [facility] 06/03/2021 08:50:12 Influenza, split virus, quadrivalent, preservative 9 completed Anne-Marie Yosemite, [employer] [facility] 06/03/2021 08:51:19 Influenza, split virus, quadrivalent, preservative 0 completed Anne-Marie Cayden, [employer] [facility] 06/03/2021 08:51:28 Pneumococcal conjugate PCV 13 4 completed Anne-Marie Yosemite, [employer] [facility] 06/03/2021 08:53:00 pneumococcal polysaccharide PPV23 6 completed Anne-Marie Cayden, [employer] [facility] 06/03/2021 08:53:31 COVID-19, mRNA, LNP-S, PF, 100 mcg/0.5mL dose or 50 mcg/0.25mL dose 1 completed [facility] 10/[facility]/2021 13:45:15 Influenza, split virus, quadrivalent, preservative 1 completed [facility]21 13:45:42 Past Encounters Encounter ID Performer Location Encounter Start Date Encounter Closed Date Diagnosis/Indication Diagnosis SNOMED-CT Code Diagnosis ICD10 Code Diagnosis Note [id number] Odilon Keyes MD [facility] [address] [address] 10/09/2015 13:58:03 10/10/2015 07:21:08 Seropositive rheumatoid arthritis [id number] M05.79 Documented seropositi ve rheumatoid arthritis. Onset was about 6 or 7 years ago. Despite regular dosing of Enbrel, she has evidence of synovitis at several joints particular ly the right wrist, the right elbow, and the left ankle. I explained to the patient that I was worried she was getting permanent erosive damage at these joints. I will obtain films of the hands and wrists. I expect to see some erosive disease. In terms of treatment, Enbrel has a sole agent is not enough. She had been on Plaquenil in the past. She did not feel that was helpful. She has never been on methotrexa te. I suppose her previous rheumatolo gist might have worried about the alcohol intake. Discussed therapeuti c options. Use of methotrexa te discussed in detail including potential side effects, possible adverse effects of alcohol, need for regular lab monitoring . Provided patient with literature . No known history of hepatitis B or hepatitis C. Baseline labs and chest x-ray will be checked. We specifical ly discussed the alcohol intake. The less, the better. It should probably be okay if she limits her alcohol to one or 2 glasses twice a week and she should not take it on the same days as the methotrexa te. The patient will get folic acid and leucovorin supplement ation. She had recent labs, so do not feel we need a baseline. She will start on methotrexa te 15 mg per week and I will see her again in 5 or 6 weeks. She is instructed to stop the medication if she has any perceived side effects. [id number] Odilon Keyes MD [place] [place] [facility] [address] [place] [address] 11/20/2015 09:21:48 11/20/2015 10:06:27 Seropositive rheumatoid arthritis 545846553 M05.79 This patient has a 6 or 7 year history of rheumatoid arthritis, seropositi ve. She still had active synovitis despite treatment with Enbrel. Methotrexa te has now been added and there is some improvemen t. Some signs of synovitis remained however. I reviewed her x-ray films of her hands and wrists with the patient today. She has some erosive disease at the wrists, loss of cartilage space. No erosions or significan t abnormalit y seen at the MCP joints. Plan will be to continue Enbrel, increase methotrexa te to 20 mg weekly. Labs will be checked today. I will want to see her in follow-up in 4 or 5 weeks. Long-term drug therapy 129139663 Z79.899 On methotrexa te. Discussed need for lab monitoring . Discussed again alcohol consumptio n. She needs to continue to limit this. She has been on Enbrel. She is aware of infection precaution s. [id number] Odilon Keyes MD Rheumatol [facility], [address] [place] [address] 12/25/2015 10:43:15 12/25/2015 16:40:23 Seropositive rheumatoid arthritis 140870009 M05.79 Seropositi ve rheumatoid arthritis, erosive disease at the wrists. There is still some active synovitis despite the current treatment with Enbrel and methotrexa te. The patient is very intent upon getting off the methotrexa te. I told her I did not think this was necessaril y a good idea. I explained that study showed the combinatio n of TNF agent plus methotrexa te controls disease better than either alone. It is possible that she might have a better response to an alternate TNF agent and then we could try to taper her methotrexa te to a minimal dose or perhaps stop it. She was anxious to try something different. I will put in a prior authorizat ion for Cimzia, if her insurance allows it. For now she can reduce the methotrexa te back down to 15 mg per week. I will want to see her about 6 weeks after starting the Cimzia. Anemia 655835858 D64.9 Recent iron deficiency anemia, almost certainly related to her episodes of copious epistaxis. She is on iron supplement ation. Update labs at next visit. Long-term drug therapy 625148486 Z79.899 On methotrexa te. Discussed need for lab monitoring . Discussed again alcohol consumptio n. She needs to continue to limit this. [id number] Odilon Keyes MD Rheumatol [facility], [address] [place] [address] 03/10/2016 10:57:46 03/11/2016 07:31:57 Seropositive rheumatoid arthritis 639401721 M05.79 Seropositi ve rheumatoid arthritis, known erosive disease at the wrists. There wastill some active synovitis despite treatment with Enbrel and methotrexa te. We changed to Humira + MTX. There probably is some modest improvemen t. The patient is very intent upon getting off the methotrexa te. I told her I did not think this was a good idea. I explained again that studies showed the combinatio n of TNF agent plus methotrexa te controls disease better than either alone. Since she is intent on trying to get off MTX, told her to go ahead and stop it now. I expect that there may well be some flare in sxs 2-6 weeks down the line. Schedule f/u 8 weeks to reassess. Long-term drug therapy 299860044 Z79.899 On methotrexa te, labs have been OK. However, stopping MTX, at least for now. [id number] Odilon Keyes MD Rheumatol [address] [address] 05/21/2016 08:47:43 05/22/2016 07:44:31 Seropositive rheumatoid arthritis 160977482 M05.79 Seropositi ve rheumatoid arthritis, known erosive disease at the wrists. There was still some active synovitis despite treatment with Enbrel and methotrexa te. We changed to Humira + MTX. At her insistence , taken off mtx 2 mo ago. There has not been any appreciabl e flare, but there is definite lingering synovitis most notably near R ulnar styloid. Discussed again that studies show better outcomes with combinatio n therapy, but she wishes to pursue current course. Will plan to repeat wrist x rays and compare at the time of next visit. If progressiv e erosions, will press her harder about adding back DMARD. Otherwise f/u in 6 mo, sooner if worsening sxs. Active or passive immunization 905220990 Z23 [id number] Odilon Keyes MD Rheumatol [facility], [address] [address] 11/14/2016 09:48:42 11/14/2016 10:25:13 Seropositive rheumatoid arthritis 203523842 M05.79 Seropositi ve rheumatoid arthritis, known erosive disease at the wrists. There was still some active synovitis despite treatment with Enbrel and methotrexa te. We changed to Humira + MTX but she insisted she go off MTX last Fall. Clinically , probably doing better on the Humira than the Enbrel, and discussed again that studies show better outcomes with combinatio n therapy. Probably gradual progressio n despite current therapy, but no change in treatment for now. Will have her return 6 mo. Check labs. Osteoporosis 81925680 M8 1.0 Documented osteoporos is on scan September 2014. hip -3.5 (Dr Salvador's office). Never treated.Wi ll repeat BMD, and I told her very likely to require treatment. Discussed use of alendronat e. She has good dentition. . [id number] Odilon Keyes MD [facility] [address] [place] [address] 05/11/2017 09:46:37 05/11/2017 10:22:22 Seropositive rheumatoid arthritis 724405588 M05.79 Seropositi ve rheumatoid arthritis, known erosive disease at the wrists. There was still some active synovitis despite treatment with Enbrel and methotrexa te. We changed to Humira + MTX but she insisted she go off MTX last Fall. Clinically , probably doing better on the Humira than the Enbrel, and discussed again that studies show better outcomes with combinatio n therapy. Probably gradual progressio n despite current therapy, but no change in treatment for now. Will have her return 6 mo. Check labs. Active or passive immunization 779306557 Z23 Osteoporosis 83803869 M8 1.0 Documented osteoporos is. Scan 01/22/17 hip -3.3.Takin g calcium and vit D. Was briefly on Fosamax through Dr Salvador. Not clear why she stopped. I have urged treatment with Boniva monthly. Discussed potential side effects. urged weight bearing exercise. Repeat BMD in December 2018. [id number] Odilon Keyes MD Rheumatol [facility], [address] [place] [address] 11/24/2017 09:06:29 11/24/2017 09:54:51 Seropositive rheumatoid arthritis 295778285 M05.79 Seropositi ve rheumatoid arthritis, known erosive disease at the wrists. There was still some active synovitis despite treatment with Enbrel and methotrexa te. We changed to Humira + MTX but she insisted she go off MTX Fall 2015. Only current treatment is the Humira. Clinically , probably doing better on the Humira than the Enbrel, and discussed again that studies show better outcomes with MTX combinatio n therapy. Repeat wrist x rays, and if signs of progressio n despite treatment with Humira, will suggest add back MTX. No recent labs on Humira. Check today. Tuberculos is screening 404516043 Z11.1 Osteoporosis 37344070 M8 1.0 Documented osteoporos is. Scan 01/22/17 hip -3.3.Takin g calcium and vit D. Was briefly on Fosamax through Dr Salvador. Not clear why she stopped. I urged treatment with Boniva monthly. She took one dose, then forgot to refill it. Promises to refill and take monthly.ur ged continued weight bearing exercise. Repeat BMD in December 2018.check Vit D level. [id number] Odilon Keyes MD Rheumatol ogy, [facility] [address] [place] [address] 06/14/2018 14:17:19 06/14/2018 14:59:50 Seropositive rheumatoid arthritis 680508622 M05.79 Seropositi ve rheumatoid arthritis, known erosive disease at the wrists. There was still some active synovitis despite treatment with Enbrel and methotrexa te. We changed to Humira + MTX but she insisted she go off MTX Fall 2015. Only current treatment is the Humira. Clinically , doing better on the Humira than the Enbrel, and discussed again that studies show better outcomes with MTX combinatio n therapy. Reviewed wrist x rays (done at [facility] with patient. Osteopenic . DJD. Not much erosive disease. No recent labs on Humira. Check today. Osteoporosis 60907950 M8 1.0 Documented osteoporos is. Scan 01/22/17 hip -3.3.Takin g calcium and vit D. Was briefly on Fosamax through Dr Salvador. Not clear why she stopped. On Boniva monthly. She took one dose, then forgot to refill it, but now back on it past 6 mo. Repeat BMD in December 2018. Ischemic colitis 6311351 4 K55.039 Recent hospitaliz ation.Uncl ear what caused this. Still undergoing investigat ions. With well controlled arthritis, rheumatoid vasculitis very unlikely as cause. However, update RF ect. Also chek for anti-phosp holipid antibodies . [id number] Odilon Keyes MD [facility] [address] [address] 02/04/2019 08:35:06 02/04/2019 09:14:44 Seropositive rheumatoid arthritis 421044950 M05.79 Seropositi ve rheumatoid arthritis, known erosive disease at the wrists. There was still some active synovitis despite treatment with Enbrel and methotrexa te. We changed to Humira + MTX but she insisted she go off MTX Fall 2015. Only current treatment is the Humira. Clinically , doing better on the Humira than the Enbrel, and discussed again that studies show better outcomes with MTX combinatio n therapy. Reviewed wrist x rays (done at [facility] with patient. Osteopenic . DJD. Not much erosive disease. Osteoporosis 91625234 M8 1.0 Documented osteoporos is. Scan 01/22/17 hip -3.3.Takjameson chambers calcium and vit D. Was briefly on Fosamax through Dr Salvador. Not clear why she stopped. On Boniva monthly. She took one dose, then forgot to refill it, but now back on it past 6 mo. Repeat BMD in December 2018. Elbow joint effusion 202 000749 M25.421 R elbow swelling and flexion contractur e.For injection today. [id number] Odilon Keyes MD [place] [facility] [place] [address] [address] 09/16/2019 08:15:49 09/16/2019 08:46:36 Seropositive rheumatoid arthritis [id number] M05.79 Seropositi ve rheumatoid arthritis, known erosive disease at the wrists. There was still some active synovitis despite treatment with Enbrel and methotrexa te. We changed to Humira + MTX but she insisted she go off MTX Fall 2015. Only current treatment is the Humira. Clinically , doing better on the Humira than the Enbrel, and discussed again that studies show better outcomes with MTX combinatio n therapy. Last visit had synovitis R elbow but this resolved with injection. The only finding today is some thickening at R 3d MCP. Plan: Continue Humira. Vaccinatio ns through Primary Care. Return 6 mo. Osteoporosis [id number] M8 1.0 Documented osteoporos is. Scan 01/22/17 hip -3.3.Repea t (different machine) -3.1. Taking calcium and vit D.On Boniva past few months. Should continue. Advised she discuss follow up bone density in 2 years with Primary care. 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 Per the patient is is non melanoma skin cancer.I had a lengthy discussion with patient about the risk of NMSC in patients taking TNF inhibitors .Will get dermatolog y records. I will try to reach Dr. Marcus to discuss safety of continuati on of Humira.Ale bolanos to have discussion with Dr. Marcus. Patient will discuss with surgeon if she needs to stop Humira 2 weeks before her surgery as I do not have the details of surgery or how deep it would be. Usually Humira should be stopped 2 weeks before surgery and restarted once patient is cleared by surgeon.Re discuss in 4-6 weeks. PS: I called Dr. Marcus, the dermatolog ist and discussed the case with her. She stated that the patient has basal cell cancer and she feels very comfortabl e keeping the patient on Humira and she will be following patient closely. Patient informed, continue Humira for now. Reassess in 6 months. [id number] Omari Ortiz MD Rheumatol tasha, [facility] [address] [place] [address] 05/29/2021 11:02:07 05/29/2021 18:41:38 Seropositive rheumatoid arthritis [id number] M05.79 Seropositi ve rheumatoid arthritis, known erosive disease at the wrists.Ale bolanos is on Humira and is doing well.Snehal nue for now.Krysten t just had labs that are not available to me, will check inflammato ry markers. Patient will get her labs records.CO VID booster discussed. Patient to get flu shot.Patie nt to check with her PCP if she got PCV-13. Patient to get Shingrix vaccine. Patient underwent surgery for cancerous growth under her nose. Per the patient is is non melanoma skin cancer. I previously spoke with Dr. Marcus, the dermatolog ist and discussed the case with her. She stated that the patient has basal cell cancer and she feels very comfortabl e keeping the patient on Humira and she will be following patient closely. RTC in 12 months or sooner if needed. [id number] Omari Ortiz MD Rheumatol [facility], [address] [address] 10/23/2021 13:28:41 10/27/2021 08:39:57 Seropositive rheumatoid arthritis [id number] M05.79 Seropositi ve rheumatoid arthritis, known erosive disease at the wrists.Ale bolanos is on Humira and is doing well.Snehal nue for now. Try to decrease dose to every 3 weeks.If worsening of clinical picture , patient to let me know. Patient got the COVID series. 4th dose of COVID vaccine discussed. Patient got flu shot.Rosi nt to get Shingrix vaccine. Patient underwent surgery for cancerous growth under her nose. Per the patient is is non melanoma skin cancer. I previously spoke with Dr. Marcus, the dermatolog ist and discussed the case with her. She stated that the patient has basal cell cancer and she feels very comfortabl e keeping the patient on Humira and she will be following patient closely. Check labs before next visit. RTC in 6 months or sooner if needed. [id number] Omari Ortiz MD Rheumatol tasha, [address] [address] 2022 07:54:26 06/13/2022 13:47:50 Seropositive rheumatoid arthritis [id number] M05.79 Seropositi ve rheumatoid arthritis, known erosive disease at the wrists.Ale bolanos is on Humira and had to stop it because of tick disease. Back on Humira and she is doing better but she has a flare in her hands.Will give a course of prednisone , 20 mg for 7 days then 10 mg for 7 days.Snehal nue Humira and increase dos2 back to every 2 weeks. Patient got flu shot.Patibenjie nt to get Shingrix vaccine, COVID booster. Patient to check with her pcp on her pneumonia vaccinatio n. Patient underwent surgery for cancerous growth under her nose. Per the patient is is non melanoma skin cancer. I previously spoke with Dr. Marcus, the dermatolog ist and discussed the case with her. She stated that the patient has basal cell cancer and she feels very comfortabl e keeping the patient on Humira and she will be following patient closely. I informed the patient that I will be leaving the practice and she has to contact her pcp to get a referral for rheumatolo gy. She verbalizes understand ing and has already received my letter. Hand pain [id number] M79.6 41 Patient unable to separate the third and forth right fingers.?I nterossei dorsal muscle involvemen t vs interossei tendinitis vs other.Dennise cira junior get a course of prednisone for RA flare and will refer to hand surgery for evaluation . Osteoporosis [id number] M8 1.0 On Ibandronat e, continue for now.Dennisevamsi reddy states that she had recent bone density but it is not available to me.Patient to check on this with her pcp. She needs an updated bone density and treatment assessment after bone density. Long-term drug therapy [id number] Z79.899 On Humira. Patient to have full skin check at dermatolog y regularly. Patient to hold Humira if fever or any sign of infection. Health Concerns Section Related Observation LastModified by Organization Detai ls LastModified Time None Recorded Concern Status LastModified by Organization Details LastModified Time None Recorded Advance Directives Directive None Recorded Payers Encounter Date Sequence Insurance Name Policy Number Policy Nielsen Covered Member ID Nielsen Member ID Guarantor Name 09/16/2019 1 [facility] (PPO) [id number] [place] [id number] Danelle E Chasidy 04/30/2020 1 [facility] (PP[facility]) [id number] Danelle Chasidy [id number] Danelle E [place] 05/29/2021 1 [facility] (PPO) [id number] [place] [id number] Danelle E [place] 10/23/2021 1 [facility] (PPO) [id number] [place] [id number] Danelle Umaña 2022 1 MEDICARE [place]: [facility] Danelle Umaña [id number] Danelle Umaña 2022 2 [facility] (MEDICARE SUPPLEMENT) [id number] Danelle Umaña [id number] Danelle Umaña Notes Date Note Type Note Provider Name and Address Organization Details Recorded Time 09/16/2019 text/html Follow-up for th is pleasant 64-year-old woman previously followed by [...] which showed hip -3.1. Odilon Keyes MD [address] [place] [address], [phone], [facility] 09/16/2019 08:58:35 04/30/2020 text/html This is a [...] which showed hip -3.1. Irma Ortiz MD [address] [place] [address], [phone], [facility] 04/30/2020 12:47:39 05/29/2021 text/html Patient is 65 [...] some ongoing synovitis despite Enbrel and low-dose methotrexate..[facility] e December 2015 on Humira instead of [...] showed hip -3.1. Irma Ortiz MD [address] [place], [address], [facility] 05/29/2021 11:53:19 10/23/2021 text/html Patient is 66 [...] some ongoing synovitis despite Enbrel and low-dose methotrexate..[facility] December 2015 on Humira instead of [...] which showed hip -3.1. Irma Ortiz MD [address] [place] [address], [phone], [facility] 10/23/2021 15:08:35 2022 text/html Patient is 66 [...] On Boniva. Labs reviewed. Irma Ortiz MD [address] [place] [address], [phone], [facility] 2022 09:52:53 OBGyn Episode No OBEpisode recorded.
== END 2024-10-04 11:12 | disposition home or self-care (01) ==
LOC: HO.RHE 11:00
PROVIDERS: PCP Family Medicine
DX: M81.0 Age-related osteoporosis without current pathological fracture (principal)

== ENCOUNTER → 2024-10-04 11:00 | Outpatient (BNVA) | payer MEDICARE, OTHER, SELFPAY | PROVIDERS: PCP Family Medicine | DX: M81.0 Age-related osteoporosis without current pathological fracture (principal) | CPT/HCPCS: 96372; J3111 ==

== ENCOUNTER 2024-11-21 11:04 | Outpatient (AMB) | payer MEDICARE, OTHER, SELFPAY ==
--- NOTE | 2024-11-21 11:22 | AM.OFFVISNUR ---
Intake Visit Reasons: Evenity #8 Allergies abaloparatide [From Tymlos] Adverse Reaction (Severe, Verified 04/15/24 14:21) Dizziness Bee Stings Adverse Reaction (Unknown, Uncoded 04/15/24 14:21) Swelling Office Meds romosozumab-aqqg 210 mg/2.34 mL(105 mg/1.17 mL x2)subcutaneous syringe Performing Provider: Kiana Garcia MD Performing Location: [facility] [place] Rheumatology Administered by: Radha Leslie RN on 11/21/24 11:22 Dose Route Admin Location Dispensed Lot Number Expiration Date [facility] [id number] 210 mg subcut bilateral upper arms 2.34 mL [id number] 10/24/26 48389-241-74 [facility] Comments: Consent form signed. Patient tolerated injection well. Patient reports no adverse effects from previous injections. Assessment & Plan Assessment & Plan Orders: Orders AMB Romosozumab Injection Patient Supplied Today M06.9 - Rheumatoid arthritis, unspecified Medications: New romosozumab-aqqg 210 mg (2.34 mL) subcut ONCE 2.34 mL 0RF M06.9 - Rheumatoid arthritis, unspecified Coding
--- OUTSIDE RECORDS SUMMARY | 2024-11-21 13:21 | XMS_ITS | Data Portability ---
Author Organization [facility], , [facility] Address [address] [place] [address] Care Team Providers Care Certified Court/Medical Interpreter Name Role Phone JOSE ANGEL WALKER Primary Care Provider Assessment No assessment recorded. Plan of Treatment Reminders Order Date Submit Date Provider Last Modified By Organization Details Last Modified Time Details Appointments None recorded. Lab C-reactive protein, quantitati ve, serum or plasma 2021 022 [facility], [address] [place] [address], [address], 10:32:29 ESR (erythrocy te sedimentat ion rate), blood 2021 022 [facility], [address] [place] [address], [address], 15:47:30 C-reactive protein, quantitati ve, serum or plasma 2020 021 [facility], [address] [place] [address], [address], 11:37:59 ESR (erythrocy te sedimentat ion rate), blood 2020 021 [facility], [address] [place] [address], [address], 14:00:44 Referral hand surgeon referral - Patient unable to separate the third and forth right fingers. 2021 [email or web address] Gardenia Tate MD, [address] [place] [address], [address], 2 15:31:02 Procedures None recorded. Surgeries None recorded. Imaging None recorded. Medication Orders prednisone 10 mg tablet 2021 023 [id number], [address] [place], [address], 3 08:35:18 Humira(CF) Pen 40 mg/0.4 mL subcutaneo us kit 2021 023 [facility], [address] [place] [address], [address], 3 08:35:18 Humira(CF) Pen 40 mg/0.4 mL subcutaneo us kit 2019 020 [email or web address], [address] [place] [address], [address], 3 08:31:12 Patient TargetsNo targets recorded. Patient [...] verif iied by rerun JLW Not Available [facility] [address] [facility], [place], [address], 05/30/2021 11:37:59 05/29/2005/30/2021 SED RATE BY MODIF IED LOCO HIREN sed rate by modified marcelren 9 mm/h < or = 30 normal Not Available [facility] [address], [place], [address], 05/30/2021 17:32:09 06/09/20 22 06/09/2022 CBC W/O AUTO DIFF WBC 7.83 K/? ? ?L 3.98-1 0.04 Not Available [address], [address], 06/09/2022 14:43:29 06/09/20 22 06/09/2022 CBC W/O AUTO DIFF RBC 3.55 M/? ? ?L 3.93-5 .22 low Not Available [address], [address], 06/09/2022 14:43:29 06/09/20 22 06/09/2022 CBC W/O AUTO DIFF HGB 10.4 g/dL 11.2-1 5.7 low Not Available [address], [address], 06/09/2022 14:43:29 06/09/20 22 06/09/2022 CBC W/O AUTO DIFF HCT 32.9 % 34.1-4 4.9 low Not Available [address], [address], 06/09/2022 14:43:29 06/09/20 22 06/09/2022 CBC W/O AUTO DIFF MCV 92.7 fL 79.4-9 4.8 Not Available [address], [address], 06/09/2022 14:43:29 06/09/20 22 06/09/2022 CBC W/O AUTO DIFF MCH 29.3 pg 25.6-3 2.2 Not Available [address], [address], 06/09/2022 14:43:29 06/09/20 22 06/09/2022 CBC W/O AUTO DIFF MCHC 31.6 g/dL 32.2-3 5.5 low Not Available [address], [address], 06/09/2022 14:43:29 06/09/20 22 06/09/2022 CBC W/O AUTO DIFF plt 418 K/? ? ?L 182-36 9 high Not Available [address], [address], 06/09/2022 14:43:29 06/09/20 22 06/09/2022 CBC W/O AUTO DIFF RDW-CV 14.2 % 11.7-1 4.4 Not Available [address], [address], 06/09/2022 14:43:29 06/09/20 22 06/09/2022 ESR sed rate 45.0 0.0-15 .0 high Not Available [address], [address], 06/09/2022 15:47:30 06/09/20 22 2022 COMP. METAB OLIC PANEL glucose 124 mg/dL 70-100 high Not Available [address], [address], 2022 10:32:27 06/09/20 22 2022 COMP. METAB OLIC PANEL BUN 16 mg/dL 7-18 Not Available [address], [address], 2022 10:32:27 06/09/20 22 2022 COMP. METAB OLIC PANEL creatinine 0.8 mg/dL 0.8-1. 3 Not Available [address], [address], 2022 10:32:27 06/09/20 22 2022 COMP. METAB OLIC PANEL B/C 20.0 ratio Not Available [address], [address], 2022 10:32:27 06/09/20 22 2022 COMP. METAB OLIC PANEL GFR >=60ML /MIN mL/mi n normal >=60m L/min - Caitlin l or midly reduc ed <60mL /min- Decre ased kidne y funct ion <15mL /min - Kidne y failu re [facility] calcu lates estim [...] be used in pregn ori. Not Available [address], [address], 2022 10:32:27 06/09/20 22 2022 COMP. METAB OLIC PANEL sodium 139 mmol/ L 136-14 5 Not Available [address], [address], 2022 10:32:27 06/09/20 22 2022 COMP. METAB OLIC PANEL potassium 4.4 mmol/ L 3.5-5. 1 Not Available [address], [address], 2022 10:32:27 06/09/20 22 2022 COMP. METAB OLIC PANEL chloride 102 mmol/ L 96-107 Not Available [address], [address], 2022 10:32:27 06/09/20 22 2022 COMP. METAB OLIC PANEL anion gap 9.1 5.0-15 .0 Not Available [address], [address], 2022 10:32:27 06/09/20 22 2022 COMP. METAB OLIC PANEL CO2 28 mmol/ L 21-32 Not Available [address], [address], 2022 10:32:27 06/09/20 22 2022 COMP. METAB OLIC PANEL calcium 8.9 mg/dL 8.5-10 .3 Not Available [address], [address], 2022 10:32:27 06/09/20 22 2022 COMP. METAB OLIC PANEL total protein 7.3 g/dL 6.4-8. 2 Not Available [address], [address], 2022 10:32:27 06/09/20 22 2022 COMP. METAB OLIC PANEL albumin 3.8 g/dL 3.4-5. 0 Not Available [address], [address], 2022 10:32:27 06/09/20 22 2022 COMP. METAB OLIC PANEL globulin 3.5 g/dL Not Available [address], [address], 2022 10:32:27 06/09/20 22 2022 COMP. METAB OLIC PANEL A/G 1.1 ratio 0.8-2. 0 Not Available [address], [address], 2022 10:32:27 06/09/20 22 2022 COMP. METAB OLIC PANEL total bilirubin 0.50 mg/dL 0.00-1 .00 Not Available [address], [address], 2022 10:32:27 06/09/20 22 2022 COMP. METAB OLIC PANEL AST 13 U/L 0-37 Not Available [address], [address], 2022 10:32:27 06/09/20 22 2022 COMP. METAB OLIC PANEL ALT 19 U/L 6-63 Not Available [address], [address], 2022 10:32:27 06/09/20 22 2022 COMP. METAB OLIC PANEL alk. phos. 75 U/L 50-136 Not Available [address], [address], 2022 10:32:27 06/09/20 22 2022 LIPID PANEL cholesterol 207 mg/dL <200 mg/dl Keri able 200-2 39 mg/dl Borde rline High >240 mg/dl High Not Available [address], [address], 2022 10:32:28 06/09/20 22 2022 LIPID PANEL triglyceride s 55 mg/dL <150 mg/dL Caitlin l 150-1 99 mg/dL Borde rline High 200-4 99 mg/dL High >500 mg/dL Very High Not Available [address], [address], 2022 10:32:28 06/09/20 22 2022 LIPID PANEL direct HDL 76 mg/dL <40 mg/dl - Major Risk for CHD >60 mg/dl - Negat rebecca Risk for CHD Not Available [address], [address], 2022 10:32:28 06/09/20 22 2022 DIREC T LDL direct LDL 117 mg/dL RISK CATEG ORY LDL GOAL _ CHD or CHD Risk Equiv alent s <100 mg/dl (10-y ear risk >20%) 2+ Risk Facto rs <130 mg/dl (10-y ear risk <= 20%) 0-1 Risk Facto r? <160 mg/dl ? Almos t all peopl e with 0-1 risk facto r have a 10 year risk <10%, thus 10 year risk asses ment in peopl e with 0-1 risk facto r is not lexy corrales. Not Available [address], [address], 2022 10:32:29 06/09/2006/10/2022 C-HERB CTIVE PROTE IN-QU ANTIT ATIVE C-reactive protein -quant 25.0 mg/L 0.0-9. 0 high Not Available [address], [address], 2022 10:32:29 Result Notes None recorded. Problems Name Problem SNOMED Code Status Onset Date Resolution Date Notes Provider Name and Address Organization Details Recorded Time Seropositive rheumatoid arthritis 722030066 Active Odilon Keyes MD [address] [place] [address], [address], [facility] 6 07:56:04 Anemia 108233423 Active Odilon Keyes MD [address] [place] [address], [address], [facility] 6 07:56:04 Osteoporosis 64568372 Active 2017 Odilon Keyes MD [address] [place] [address], [address], [facility] 8 19:07:30 Problem Notes None recorded. Procedures Surgical History Date Name Laterality Status Provider Name and Address Organization Details Recorded Time 9 Generic Procedure Template completed Odilon Keyes MD [address] [place] [address], [address], [facility] 02/05/2019 14:27:25 Imaging Results None recorded. Procedure Notes None recorded. Medical Equipment None Reported. Allergies Allergen ID Allergen Name Allergen Category Reaction Reaction Severity Criticality Documentation Date Start Date Code Code System Note Provider Name and Address Organization Details Recorded Time [id number] honey bee venom medicatio n Not available Not available Not available 11/14/2016 19556 7 RxNorm Yany Tyler LPN [facility] 7 09:54:03 Medications Name Sig Start Date [...] Updated DateTime 0 167.64 cm 24 kg/m2 26325.5 4 g 64 /min 140 mm[Hg] 82 mm[Hg] Anne-Marie Rodarte LPN [facility] 0 08:28:42 Date Recorded Body height Body temperature Provider N laura and Address Organization Details Last Updated DateTime 04/30/2020 167.64 cm 96.4 [degF] Nanci Pace [facility] 04/30/2020 09:36:28 Date Recorded Body weight Heart rate Systolic blood pressure Diastolic blood pressure Provider Name and Address Organization Details Last Updated DateTime 05/29/2021 85303.82 g 74 /min 118 mm[Hg] 62 mm[Hg] Fransisca Sandoval LPN [facility] 05/29/2021 11:11:55 Date Recorded Body weight Heart rate Systolic blood pressure Diastolic blood pressure Provider Name and Address Organization Details Last Updated DateTime 10/23/2021 53428.36 g 64 /min 110 mm[Hg] 78 mm[Hg] Fransisca Sandoval GENERAL OPHTHALMOLOGIST [facility] 10/23/2021 13:47:19 Date Recorded Body weight Heart rate Systolic blood pressure Diastolic blood pressure Provider Name and Address Organization Details Last Updated DateTime 2022 58241.84 g 66 /min 108 mm[Hg] 72 mm[Hg] Fransisca Sandoval LPN [facility] 2022 08:11:09 Social History Question Answer Notes LastModified by Organizat ion Details LastModified Time Tobacco Smoking Status Former Smoker John Floyd, GENERAL OPHTHALMOLOGIST [facility] 10/09/2015 14:23:17 What Is Your Level Of Alcohol Consumption? Moderate 1-2 Glasses Wine 2-3 D/wk Information not available 10/09/2015 How Much Tobacco Do You Chew? 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 14+yearssinkathy amin Information not available 10/09/2015 How Many Days In The Past Year Have You Had A Heavy Drinking Consumption (4+ Female, 5+ Male)? 20 [email or web address] Information not available 10/09/2015 Marital Status Informatio [...] virus, quadrivalent, PF 6 completed Not Available [facility] 08/13/2019 02:21:04 Influenza, split virus, quadrivalent, PF 7 completed Not Available [facility] 08/13/2019 02:31:53 Influenza, split virus, quadrivalent, preservative 8 completed Yany Tyler LPN [facility] 06/14/2018 14:31:22 COVID-19, mRNA, LNP-S, PF, 100 mcg/0.5mL dose or 50 mcg/0.25mL dose 1 [facility]2021 08:48:43 COVID-19, mRNA, LNP-S, PF, 100 mcg/0.5mL dose or 50 mcg/0.25mL dose 1 completed Anne-Marie Houghton, GENERAL [facility]PHTHALMOLOGIST [facility] 06/03/2021 08:48:56 Td (adult) 6 completed Anne-Marie Houghton, GENERAL OPHTHALMOLOGIST [facility] 06/03/2021 08:49:59 Td (adult) 3 completed Anne-Marie Houghton, GENERAL OPHTHALMOLOGIST [facility] 06/03/2021 08:50:12 Influenza, split virus, quadrivalent, preservative 9 completed Anne-Marie Cayden, GENERAL OPHTHALMOLOGIST [facility] 06/03/2021 08:51:19 Influenza, split virus, quadrivalent, preservative 0 completed Anne-Marie Houghton, GENERAL OPHTHALMOLOGIST [facility] 06/03/2021 08:51:28 Pneumococcal conjugate PCV 13 4 completed Anne-Marie Houghton, GENERAL OPHTHALMOLOGIST [facility] 06/03/2021 08:53:00 pneumococcal polysaccharide PPV23 6 completed Anne-Marie Cayden, GENERAL OPHTHALMOLOGIST [facility] 06/03/2021 08:53:31 COVID-19, mRNA, LNP-S, PF, 100 mcg/0.5mL dose or 50 mcg/0.25mL dose 1 completed [facility] 10/23/2021 13:45:15 Influenza, split virus, quadrivalent, preservative 1 completed [facility] 10/23/2021 13:45:42 Past Encounters Encounter ID Performer Location Encounter Start Date Encounter Closed Date Diagnosis/Indication Diagnosis SNOMED-CT Code Diagnosis ICD10 Code Diagnosis Note [id number] Odilon Keyes MD Rheumatol [facility], [address] [place] [address] 10/09/2015 13:58:03 10/10/2015 07:21:08 Seropositive rheumatoid arthritis 924783914 M05.79 Documented seropositi ve rheumatoid arthritis. Onset [...] if she has any perceived side effects. [id number] Odilon Keyes MD Rheumatol [facility], [facility] [address] [place] [address] 11/20/2015 09:21:48 11/20/2015 10:06:27 Seropositive rheumatoid arthritis 989042226 M05.79 This patient has a 6 or [...] 4 or 5 weeks. Long-term drug therapy 762647844 Z79.899 On methotrexa te. Discussed need for lab monitoring . Discussed again alcohol consumptio n. She needs to continue to limit this. She has been on Enbrel. She is aware of infection precaution s. [id number] Odilon Keyes MD Rheumatol [facility], [address] [address] 12/25/2015 10:43:15 12/25/2015 16:40:23 Seropositive rheumatoid arthritis 455697721 M05.79 Seropositi ve rheumatoid arthritis, erosive disease [...] 6 weeks after starting the Cimzia. Anemia 569340128 D64.9 Recent iron deficiency anemia, almost certainly related to her episodes of copious epistaxis. She is on iron supplement ation. Update labs at next visit. Long-term drug therapy 384646582 Z79.899 On methotrexa te. Discussed need for lab monitoring . Discussed again alcohol consumptio n. She needs to continue to limit this. [id number] Odilon Keyes MD Rheumatol [place], [address] [address] 03/10/2016 10:57:46 03/11/2016 07:31:57 Seropositive rheumatoid arthritis 872160877 M05.79 Seropositi ve rheumatoid arthritis, known erosive [...] 8 weeks to reassess. Long-term drug therapy 217294387 Z79.899 On methotrexa te, labs have been OK. However, stopping MTX, at least for now. [id number] Odilon Keyes MD Rheumatol [address] [address] 05/21/2016 08:47:43 05/22/2016 07:44:31 Seropositive rheumatoid arthritis 754975096 M05.79 Seropositi ve rheumatoid arthritis, known erosive [...] if worsening sxs. Active or passive immunization 532949406 Z23 [id number] Odilon Keyes MD Rheumatol [address] [address] 11/14/2016 09:48:42 11/14/2016 10:25:13 Seropositive rheumatoid arthritis 906637315 M05.79 Seropositi ve rheumatoid arthritis, known erosive [...] her return 6 mo. Check labs. Osteoporosis 00759072 M8 1.0 Documented osteoporos is on scan September 2014. hip -3.5 (Dr Salvador's office). Never treated.Wi ll repeat BMD, and I told her very likely to require treatment. Discussed use of alendronat e. She has good dentition. . [id number] Odilon Keyes MD Rheumatol [facility], [address] [place] [address] 05/11/2017 09:46:37 05/11/2017 10:22:22 Seropositive rheumatoid arthritis 195414974 M05.79 Seropositi ve rheumatoid arthritis, known erosive [...] mo. Check labs. Active or passive immunization 501424176 Z23 Osteoporosis 84931775 M8 1.0 Documented osteoporos is. Scan 01/22/17 hip -3.3.Takjameson g calcium and vit D. Was briefly on Fosamax through Dr Salvador. Not clear why she stopped. I have urged treatment with Boniva monthly. Discussed potential side effects. urged weight bearing exercise. Repeat BMD in December 2018. [id number] Odilon Keyes MD Rheumatol [facility], [address] [place] [address] 11/24/2017 09:06:29 11/24/2017 09:54:51 Seropositive rheumatoid arthritis 190041641 M05.79 Seropositi ve rheumatoid arthritis, known erosive [...] on Humira. Check today. Tuberculos is screening 863668874 Z11.1 Osteoporosis 58086858 M8 1.0 Documented osteoporos is. Scan 01/22/17 hip -3.3.Takin g calcium and vit D. Was briefly on Fosamax through Dr Salvador. Not clear why she stopped. I urged treatment with Boniva monthly. She took one dose, then forgot to refill it. Promises to refill and take monthly.ur ged continued weight bearing exercise. Repeat BMD in December 2018.check Vit D level. [id number] Odilon Keyes MD Rheumatol [facility], [facility] [address] [place] [address] 06/14/2018 14:17:19 06/14/2018 14:59:50 Seropositive rheumatoid arthritis 164201916 M05.79 Seropositi ve rheumatoid arthritis, known erosive [...] therapy. Reviewed wrist x rays (done at [facility]) with patient. Osteopenic . DJD. Not much erosive disease. No recent labs on Humira. Check today. Osteoporosis 21182520 M8 1.0 Documented osteoporos is. Scan 01/22/17 hip -3.3.Takin g calcium and vit D. Was briefly on Fosamax through Dr Salvador. Not clear why she stopped. On Boniva monthly. She took one dose, then forgot to refill it, but now back on it past 6 mo. Repeat BMD in December 2018. Ischemic colitis 5975675 4 K55.039 [facility] what [facility] this. Still undergoing investigat ions. With well controlled arthritis, rheumatoid vasculitis very unlikely as cause. However, update RF ect. Also chek for anti-phosp holipid antibodies . [id number] Odilon Keyes MD [facility]umat[facility], [address] [address] 02/04/2019 08:35:06 02/04/2019 09:14:44 Seropositive rheumatoid arthritis 122287316 M05.79 Seropositi ve rheumatoid arthritis, known erosive [...] therapy. Reviewed wrist x rays (done at [facility]) with patient. Osteopenic . DJD. Not much erosive disease. Osteoporosis 10862922 M8 1.0 Documented osteoporos is. Scan 01/22/17 hip -3.3.Takin g calcium and vit D. Was briefly on Fosamax through Dr Salvador. Not clear why she stopped. On Boniva monthly. She took one dose, then forgot to refill it, but now back on it past 6 mo. Repeat BMD in December 2018. Elbow joint effusion 202 808519 M25.421 R elbow swelling and flexion contractur e.For injection today. [id number] Odilon Keyes MD Rheumatol [facility], [address] [place] [address] 09/16/2019 08:15:49 09/16/2019 08:46:36 Seropositive rheumatoid arthritis 358079097 M05.79 Seropositi ve rheumatoid arthritis, known erosive [...] through Primary Care. Return 6 mo. Osteoporosis 63484986 M8 1.0 Documented osteoporos is. Scan 01/22/17 hip -3.3.Repea t (different machine) -3.1. Taking calcium and vit D.On Boniva past few months. Should continue. Advised she discuss follow up bone density in 2 years with Primary care. [id number] Omari Ortiz MD Rheumatol [facility], [facility] [address] [place] [address] 04/30/2020 07:38:03 04/30/2020 12:07:10 Seropositive rheumatoid arthritis 119578280 M05.79 Seropositi ve rheumatoid arthritis, known erosive [...] Humira for now. Reassess in 6 months. [id number] Omari Ortiz MD Rheumatol [facility], [facility] [address] [place] [address] 05/29/2021 11:02:07 05/29/2021 18:41:38 Seropositive rheumatoid arthritis 526334719 M05.79 Seropositi ve rheumatoid arthritis, known erosive disease at the wrists.Ale bolanos is on Humira and is doing well.Snehal nue for now.Patien t just had labs that are not [...] in 12 months or sooner if needed. [id number] Omari Ortiz MD Rheumatol [facility], [address] [address] 10/23/2021 13:28:41 10/27/2021 08:39:57 Seropositive rheumatoid arthritis 941639946 M05.79 Seropositi ve rheumatoid arthritis, known erosive disease at the wrists.Ale bolanos is on Humira and is doing well.Snehal nue for now. Try to decrease dose to every 3 weeks.If worsening of clinical picture , patient to let me know. Patient got the COVID series. 4th dose of COVID vaccine discussed. Patient got flu shot.Patie nt to get Shingrix vaccine. Patient underwent [...] in 6 months or sooner if needed. [id number] Omari Ortiz MD Rheumatol [facility], [address] [address] 2022 07:54:26 06/13/2022 13:47:50 Seropositive rheumatoid arthritis 010510970 M05.79 Seropositi ve rheumatoid arthritis, known erosive [...] to every 2 weeks. Patient got flu shot.Rosi nt to get Shingrix vaccine, COVID booster. [...] has already received my letter. Hand pain 94492620 M79.6 41 Patient unable to separate the third and forth right fingers.?I nterossei dorsal muscle involvemen t vs interossei tendinitis vs other.Dennise cira junior get a course of prednisone for RA flare and will refer to hand surgery for evaluation . Osteoporosis 28020889 M8 1.0 On Ibandronat e, continue for now.Dennisevamsi reddy states that she had recent bone density but it is not available to me.Patient to check on this with her pcp. She needs an updated bone density and treatment assessment after bone density. Long-term drug therapy 063448128 Z79.899 On Humira. Patient to have full [...] Nielsen Member ID Guarantor Name 09/16/2019 1 [facility] ([facility] [id number] Danelle [place] [id number] Danelle E [place] 04/30/2020 1 [facility] [id number] Danelle Chasidy [id number] Danelle E [place] 05/29/2021 1 [facility] [id number] Danelle Chasidy [id number] Danelle E [place] 10/23/2021 1 [facility] [id number] Danelle Umaña [id number] Danelle Umaña 2022 1 MEDICARE [place]: NATIONAL [employer] Danelle Umaña [id number] Danelle Umaña 2022 2 [facility] S[facility] (MEDICARE SUPPLEMENT) [id number] Danelle Umaña [id number] Danelle Umaña Notes Date Note Type Note [...] which showed hip -3.1. Odilon Keyes MD [address] [place] [address], [address], [facility] 09/16/2019 08:58:35 04/30/2020 text/html This is a [...] which showed hip -3.1. Irma Ortiz MD [address] [place] [address], [address], [facility] 04/30/2020 12:47:39 05/29/2021 text/html Patient is 65 [...] which showed hip -3.1. Irma Ortiz MD [address] [place] [address], [address], [facility] 05/29/2021 11:53:19 10/23/2021 text/html Patient is 66 [...] which showed hip -3.1. Irma Ortiz MD [address] [place] [address], [address], [facility] 10/23/2021 15:08:35 2022 text/html Patient is 66 [...] On Boniva. Labs reviewed. Irma Ortiz MD [address] [place] [address], [address], [facility] 2022 09:52:53 OBGyn Episode No OBEpisode recorded.
== END 2024-11-21 11:21 | disposition home or self-care (01) ==
LOC: HO.RHE 11:05
PROVIDERS: PCP Family Medicine; Visit Provider Student in an Organized Health Care Education/Training Program
DX: M06.9 Rheumatoid arthritis, unspecified (principal)

== ENCOUNTER → 2024-11-21 11:04 | Outpatient (BNVA) | payer MEDICARE, OTHER, SELFPAY | PROVIDERS: PCP Family Medicine; Visit Provider Student in an Organized Health Care Education/Training Program | DX: M06.9 Rheumatoid arthritis, unspecified (principal) | CPT/HCPCS: 96372; J3111 ==

== ENCOUNTER 2025-01-03 15:30 | Outpatient (REF) | payer MEDICARE, OTHER, SELFPAY ==
[2025-01-03 15:48] LABS: MANUAL DIFF FLAG NO
[2025-01-03 16:35] LABS: Basophils Absolute Auto 0.1 X10*3/uL (0.0-0.2); Eosinophils Absolute Auto 0.2 X10*3/uL (0.0-0.4); Eosinophils Percent Auto 3.4 % (0-4); Hematocrit 34.3 % (37.0-47.0); Hemoglobin 11.3 g/dl (12.0-16.0); Imm Gran Abs Auto 0.02 X10*3/uL (0.00-0.03); Imm Gran Pct Auto 0.3 % (0.0-0.4); Lymphocytes Absolute Auto 1.9 X10*3/uL (1.2-4.9); Lymphocytes Percent Auto 31.5 % (20-40); Mean Corpuscular HGB Conc 32.9 g/dl (31.0-35.0); Mean Corpuscular Hemoglobin 30.5 pg (27.0-33.0); Mean Corpuscular Volume 92.7 fL (80.0-98.0); Monocytes Absolute Auto 0.7 X10*3/uL (0.1-1.2); Monocytes Percent Auto 10.8 % (2-11); Neutrophils Absolute Auto 3.3 x10*3/uL (2.0-8.3); Platelet Count 307 X10*3/uL (160-400); Red Cell Distribution Width 12.8 % (11.0-16.0); White Blood Count 6.1 X10*3/uL (4.8-10.8)
[2025-01-03 16:57] LABS: Alanine Aminotransferase 15 U/L (0-31); Albumin Level 4.4 g/dL (3.5-5.0); Alkaline Phosphatase 41 U/L (39-117); Anion Gap 11 (12-20); Aspartate Amino Transferase 18 U/L (5-31); Bilirubin Total 0.5 mg/dL (0.0-1.0); Blood Urea Nitrogen 13 mg/dL (9-16); C Reactive Protein 0.22 mg/dL (< or = 0.50); Calcium 9.1 mg/dL (8.4-10.2); Carbon Dioxide 26 mmol/L (22-29); Chloride 109 mmol/L (96-108); Estimated Glomerular Filt Rate > 60; Glucose Random 101 mg/dL (60-115); Potassium 3.7 mmol/L (3.3-5.1); Sodium 142 mmol/L (135-145); Total Protein 6.8 g/dL (6.5-8.0)
[2025-01-03 17:26] LABS: Erythrocyte Sedimentation Rate 20 MM/HR (0-20)
--- OUTSIDE RECORDS SUMMARY | 2025-01-03 18:36 | XMS_ITS | Data Portability ---
Author Organization [facility], , [facility] Address [address] [place] [address] Care Team Providers Care Italian Tutor Name Role Phone JOSE ANGEL WALKER Primary Care Provider Assessment No assessment recorded. Plan of Treatment Reminders Order Date Submit Date Provider Last Modified By Organization Details Last Modified Time Details Appointments None recorded. Lab C-reactive protein, quantitati ve, serum or plasma 2021 022 [facility], [address] [place] [address], [address], 10:32:29 ESR (erythrocy te sedimentat ion rate), blood 2021 022 [facility], [address] [place] [address], [address], 15:47:30 C-reactive protein, quantitati ve, serum or plasma 2020 021 [facility], [address] [place] [address], [address], 11:37:59 ESR (erythrocy te sedimentat ion rate), blood 2020 021 [facility], [address] [place] [address], [address], 14:00:44 Referral hand surgeon referral - Patient unable to separate the third and forth right fingers. 2021 [email or web address] Gardenia Tate MD, [address] [place] [address], [address], 2 15:31:02 Procedures None recorded. Surgeries None recorded. Imaging None recorded. Medication Orders prednisone 10 mg tablet 2021 023 [id number], [address] [place], [address], 3 08:35:18 Humira(CF) Pen 40 mg/0.4 mL subcutaneo us kit 2021 023 [facility], [address] [place] [address], [address], 3 08:35:18 Humira(CF) Pen 40 mg/0.4 mL subcutaneo us kit 2019 020 [email or web address], [address] [place] [address], [address], 3 08:31:12 Patient TargetsNo targets recorded. Patient [...] verif iied by rerun JLW Not Available [facility] [address] [facility], [place], [address], 05/30/2021 11:37:59 05/29/2005/30/2021 SED RATE BY MODIF IED LOCO HIREN sed rate by modified marcelren 9 mm/h < or = 30 normal Not Available [facility] [address], [place], [address], 05/30/2021 17:32:09 06/09/20 22 06/09/2022 CBC W/O AUTO DIFF WBC 7.83 K/? ? ?L 3.98-1 0.04 Not Available [address], [address], 06/09/2022 14:43:29 06/09/20 22 06/09/2022 CBC W/O AUTO DIFF RBC 3.55 M/? ? ?L 3.93-5 .22 low Not Available [address], [address], 06/09/2022 14:43:29 06/09/20 22 06/09/2022 CBC W/O AUTO DIFF HGB 10.4 g/dL 11.2-1 5.7 low Not Available [address], [address], 06/09/2022 14:43:29 06/09/20 22 06/09/2022 CBC W/O AUTO DIFF HCT 32.9 % 34.1-4 4.9 low Not Available [address], [address], 06/09/2022 14:43:29 06/09/20 22 06/09/2022 CBC W/O AUTO DIFF MCV 92.7 fL 79.4-9 4.8 Not Available [address], [address], 06/09/2022 14:43:29 06/09/20 22 06/09/2022 CBC W/O AUTO DIFF MCH 29.3 pg 25.6-3 2.2 Not Available [address], [address], 06/09/2022 14:43:29 06/09/20 22 06/09/2022 CBC W/O AUTO DIFF MCHC 31.6 g/dL 32.2-3 5.5 low Not Available [address], [address], 06/09/2022 14:43:29 06/09/20 22 06/09/2022 CBC W/O AUTO DIFF plt 418 K/? ? ?L 182-36 9 high Not Available [address], [address], 06/09/2022 14:43:29 06/09/20 22 06/09/2022 CBC W/O AUTO DIFF RDW-CV 14.2 % 11.7-1 4.4 Not Available [address], [address], 06/09/2022 14:43:29 06/09/20 22 06/09/2022 ESR sed rate 45.0 0.0-15 .0 high Not Available [address], [address], 06/09/2022 15:47:30 06/09/20 22 2022 COMP. METAB OLIC PANEL glucose 124 mg/dL 70-100 high Not Available [address], [address], 2022 10:32:27 06/09/20 22 2022 COMP. METAB OLIC PANEL BUN 16 mg/dL 7-18 Not Available [address], [address], 2022 10:32:27 06/09/20 22 2022 COMP. METAB OLIC PANEL creatinine 0.8 mg/dL 0.8-1. 3 Not Available [address], [address], 2022 10:32:27 06/09/20 22 2022 COMP. METAB OLIC PANEL B/C 20.0 ratio Not Available [address], [address], 2022 10:32:27 06/09/20 22 2022 COMP. METAB [...] be used in pregn ori. Not Available [address], [address], 2022 10:32:27 06/09/20 22 2022 COMP. METAB OLIC PANEL sodium 139 mmol/ L 136-14 5 Not Available [address], [address], 2022 10:32:27 06/09/20 22 2022 COMP. METAB OLIC PANEL potassium 4.4 mmol/ L 3.5-5. 1 Not Available [address], [address], 2022 10:32:27 06/09/20 22 2022 COMP. METAB OLIC PANEL chloride 102 mmol/ L 96-107 Not Available [address], [address], 2022 10:32:27 06/09/20 22 2022 COMP. METAB OLIC PANEL anion gap 9.1 5.0-15 .0 Not Available [address], [address], 2022 10:32:27 06/09/20 22 2022 COMP. METAB OLIC PANEL CO2 28 mmol/ L 21-32 Not Available [address], [address], 2022 10:32:27 06/09/20 22 2022 COMP. METAB OLIC PANEL calcium 8.9 mg/dL 8.5-10 .3 Not Available [address], [address], 2022 10:32:27 06/09/20 22 2022 COMP. METAB OLIC PANEL total protein 7.3 g/dL 6.4-8. 2 Not Available [address], [address], 2022 10:32:27 06/09/20 22 2022 COMP. METAB OLIC PANEL albumin 3.8 g/dL 3.4-5. 0 Not Available [address], [address], 2022 10:32:27 06/09/20 22 2022 COMP. METAB OLIC PANEL globulin 3.5 g/dL Not Available [address], [address], 2022 10:32:27 06/09/20 22 2022 COMP. METAB OLIC PANEL A/G 1.1 ratio 0.8-2. 0 Not Available [address], [address], 2022 10:32:27 06/09/20 22 2022 COMP. METAB OLIC PANEL total bilirubin 0.50 mg/dL 0.00-1 .00 Not Available [address], [address], 2022 10:32:27 06/09/20 22 2022 COMP. METAB OLIC PANEL AST 13 U/L 0-37 Not Available [address], [address], 2022 10:32:27 06/09/20 22 2022 COMP. METAB OLIC PANEL ALT 19 U/L 6-63 Not Available [address], [address], 2022 10:32:27 06/09/20 22 2022 COMP. METAB OLIC PANEL alk. phos. 75 U/L 50-136 Not Available [address], [address], 2022 10:32:27 06/09/20 22 2022 LIPID PANEL cholesterol 207 mg/dL <200 mg/dl Keri able 200-2 39 mg/dl Borde rline High >240 mg/dl High Not Available [address], [address], 2022 10:32:28 06/09/20 22 2022 LIPID PANEL triglyceride s 55 mg/dL <150 mg/dL Caitlin l 150-1 99 mg/dL Borde rline High 200-4 99 mg/dL High >500 mg/dL Very High Not Available [address], [address], 2022 10:32:28 06/09/20 22 2022 LIPID PANEL direct HDL 76 mg/dL <40 mg/dl - Major Risk for CHD >60 mg/dl - Negat rebecca Risk for CHD Not Available [address], [address], 2022 10:32:28 06/09/20 22 2022 DIREC T [...] r is not lexy corrales. Not Available [address], [address], 2022 10:32:29 06/09/2006/10/2022 C-HERB CTIVE PROTE IN-QU ANTIT ATIVE C-reactive protein -quant 25.0 mg/L 0.0-9. 0 high Not Available [address], [address], 2022 10:32:29 Result Notes None recorded. Problems Name Problem SNOMED Code Status Onset Date Resolution Date Notes Provider Name and Address Organization Details Recorded Time Seropositive rheumatoid arthritis 813368359 Active Odilon Keyes MD [address] [place] [address], [address], [facility] 6 07:56:04 Anemia 693694188 Active Odilon Keyes MD [address] [place] [address], [address], [facility] 6 07:56:04 Osteoporosis 49127912 Active 2017 Odilon Keyes MD [address] [place] [address], [address], [facility] 8 19:07:30 Problem Notes None recorded. Procedures Surgical History Date Name Laterality Status Provider Name and Address Organization Details Recorded Time 9 Generic Procedure Template completed Odilon Keyes MD [address] [place] [address], [phone], [facility] 02/05/2019 14:27:25 Imaging Results None recorded. Procedure Notes None recorded. Medical Equipment None Reported. Allergies Allergen ID Allergen Name Allergen Category Reaction Reaction Severity Criticality Documentation Date Start Date Code Code System Note Provider Name and Address Organization Details Recorded Time 19640902 honey bee venom medicatio n Not available Not available Not available 11/14/2016 61651 7 RxNorm Yany Tyler LPN [facility] 7 09:54:03 Medications Name Sig Start Date [...] Updated DateTime 0 167.64 cm 24 kg/m2 71516.5 4 g 64 /min 140 mm[Hg] 82 mm[Hg] Anne-Marie Rodarte LPN [facility] 0 08:28:42 Date Recorded Body weight Heart rate Systolic blood pressure Diastolic blood pressure Provider Name and Address Organization Details Last Updated DateTime 10/23/2021 52075.36 g 64 /min 110 mm[Hg] 78 mm[Hg] Fransisca Sandoval LPN [facility] 10/23/2021 13:47:19 Date Recorded Body height Body temperature Provider N laura and Address Organization Details Last Updated DateTime 04/30/2020 167.64 cm 96.4 [degF] Nanci Pace LPN [facility] 04/30/2020 09:36:28 Date Recorded Body weight Heart rate Systolic blood pressure Diastolic blood pressure Provider Name and Address Organization Details Last Updated DateTime 05/29/2021 27556.82 g 74 /min 118 mm[Hg] 62 mm[Hg] Fransisca Sandoval LPN [facility] 05/29/2021 11:11:55 Date Recorded Body weight Heart rate Systolic blood pressure Diastolic blood pressure Provider Name and Address Organization Details Last Updated DateTime 2022 07779.84 g 66 /min 108 mm[Hg] 72 mm[Hg] Fransisca Sandoval LPN [facility] 2022 08:11:09 Social History Question Answer Notes LastModified by Organizat ion Details LastModified Time Tobacco Smoking Status Former Smoker MARK Ponce [facility] 10/09/2015 14:23:17 How Much Tobacco Do You Chew? None [email or web address] Information not available 10/09/2015 When Did You Quit Smoking? 16+yearssinc elastcigaret te [email or web address] Information not available 10/09/2015 How Many Days In The Past Year Have You Had A Heavy Drinking Consumption (4+ Female, 5+ Male)? 20 [email or web address] Information not available 10/09/2015 Marital Status Informatio n not available 10/09/2015 What Was The Date Of Your Most Recent Tobacco Screening? 02/05/2019 Information not available 02/16/2019 Sex: Unknown Functional Status Question Answer Note LastModified by Organizat ion Details LastModified Time What is your level of alcohol consumption? 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 Family History Relationship [...] virus, quadrivalent, PF 6 completed Not Available [facility] 08/13/2019 02:21:04 Influenza, split virus, quadrivalent, PF 7 completed Not Available [facility] 08/13/2019 02:31:53 Influenza, split virus, quadrivalent, preservative 8 completed MARK Ochoa [facility] 06/14/2018 14:31:22 COVID-19, mRNA, LNP-S, PF, 100 mcg/0.5mL dose or 50 mcg/0.25mL dose 1 completed MARK Long [facility] 06/03/2021 08:48:43 COVID-19, mRNA, LNP-S, PF, 100 mcg/0.5mL dose or 50 mcg/0.25mL dose 1 completed [facility]Marie Cayden, [facility] 06[facility]2021 08:48:56 Td (adult) 6 completed Anne-Marie Bronx, [facility] 06/03/2021 08:49:59 Td (adult) 3 completed Anne-Marie Bronx, TRAINER null, [facility] 06/03/2021 08:50:12 Influenza, split virus, quadrivalent, preservative 9 completed Anne-Marie Bronx, [facility] 06/03/2021 08:51:19 Influenza, split virus, quadrivalent, preservative 0 completed Anne-Marie Bronx, [facility] 06/03/2021 08:51:28 Pneumococcal conjugate PCV 13 4 completed Anne-Marie Cayden, TRAINER null, [facility] 06/03/2021 08:53:00 pneumococcal polysaccharide PPV23 6 completed Anne-Marie Bronx, [facility] 06/03/2021 08:53:31 COVID-19, mRNA, LNP-S, PF, 100 mcg/0.5mL dose or 50 mcg/0.25mL dose 1 completed Fransisca Sandoval TRAINER null, [facility] 10/23/2021 13:45:15 Influenza, split virus, quadrivalent, preservative 1 completed Fransisca Sandoval TRAINER null, [facility] 10/23/2021 13:45:42 Past Encounters Encounter ID Performer Location Encounter Start Date Encounter Closed Date Diagnosis/Indication Diagnosis SNOMED-CT Code Diagnosis ICD10 Code Diagnosis Note [id number] Odilon Keyes MD Rheumatol tasha, [address] [address] 10/09/2015 13:58:03 10/10/2015 07:21:08 Seropositive rheumatoid arthritis 353377551 M05.79 Documented seropositi ve rheumatoid arthritis. Onset [...] if she has any perceived side effects. [id number] Odilon Keyes MD Rheumat[place] [facility] [place], [facility] [address] [place] [address] 11/20/2015 09:21:48 11/20/2015 10:06:27 Seropositive rheumatoid arthritis 798792409 M05.79 This patient has a 6 or [...] 4 or 5 weeks. Long-term drug therapy 673005305 Z79.899 On methotrexa te. Discussed need for lab monitoring . Discussed again alcohol consumptio n. She needs to continue to limit this. She has been on Enbrel. She is aware of infection precaution s. [id number] Odilon Keyes MD Rheumatol [address] [place] [address] 12/25/2015 10:43:15 12/25/2015 16:40:23 Seropositive rheumatoid arthritis 271143018 M05.79 Seropositi ve rheumatoid arthritis, erosive disease [...] 6 weeks after starting the Cimzia. Anemia 370018469 D64.9 Recent iron deficiency anemia, almost certainly related to her episodes of copious epistaxis. She is on iron supplement ation. Update labs at next visit. Long-term drug therapy 708212630 Z79.899 On methotrexa te. Discussed need for lab monitoring . Discussed again alcohol consumptio n. She needs to continue to limit this. [id number] Odilon Keyes MD Rheumatol [facility] [place], [address] [place] [address] 03/10/2016 10:57:46 03/11/2016 07:31:57 Seropositive rheumatoid arthritis 049186088 M05.79 Seropositi ve rheumatoid arthritis, known erosive [...] 8 weeks to reassess. Long-term drug therapy 944004038 Z79.899 On methotrexa te, labs have been OK. However, stopping MTX, at least for now. [id number] Odilon Keyes MD Rheumatol tasha, [address] [address] 05/21/2016 08:47:43 05/22/2016 07:44:31 Seropositive rheumatoid arthritis 795388580 M05.79 Seropositi ve rheumatoid arthritis, known erosive [...] if worsening sxs. Active or passive immunization 946458991 Z23 [id number] Odilon Keyes MD Rheumatol tasha, [address] [address] 11/14/2016 09:48:42 11/14/2016 10:25:13 Seropositive rheumatoid arthritis 005571671 M05.79 Seropositi ve rheumatoid arthritis, known erosive [...] her return 6 mo. Check labs. Osteoporosis 65476608 M8 1.0 Documented osteoporos is on scan September 2014. hip -3.5 (Dr Salvador's office). Never treated.Wi ll repeat BMD, and I told her very likely to require treatment. Discussed use of alendronat e. She has good dentition. . [id number] Odilon Keyes MD Rheumatol amelia, [facility] [address] [facility] [place] [address] 05/11/2017 09:46:37 05/11/2017 10:22:22 Seropositive rheumatoid arthritis 189535010 M05.79 Seropositi ve rheumatoid arthritis, known erosive [...] mo. Check labs. Active or passive immunization 395674478 Z23 Osteoporosis 98064935 M8 1.0 Documented osteoporos is. Scan 01/22/17 hip -3.3.Takjameson g calcium and vit D. Was briefly on Fosamax through Dr Salvador. Not clear why she stopped. I have urged treatment with Boniva monthly. Discussed potential side effects. urged weight bearing exercise. Repeat BMD in December 2018. [id number] Odilon Keyes MD Rheumatol tasha, [facility] [address] [facility] [place] [place] [address] 11/24/2017 09:06:29 11/24/2017 09:54:51 Seropositive rheumatoid arthritis 366014785 M05.79 Seropositi ve rheumatoid arthritis, known erosive [...] on Humira. Check today. Tuberculos is screening 687737108 Z11.1 Osteoporosis 02574344 M8 1.0 Documented osteoporos is. Scan 01/22/17 hip -3.3.Takin g calcium and vit D. Was briefly on Fosamax through Dr Salvador. Not clear why she stopped. I urged treatment with Boniva monthly. She took one dose, then forgot to refill it. Promises to refill and take monthly.ur ged continued weight bearing exercise. Repeat BMD in December 2018.check Vit D level. [id number] Odilon Keyes MD Rheumatol [facility] [place], [facility] [address] [facility] [place] [place] [address] 06/14/2018 14:17:19 06/14/2018 14:59:50 Seropositive rheumatoid arthritis 174168865 M05.79 Seropositi ve rheumatoid arthritis, known erosive [...] therapy. Reviewed wrist x rays (done at [facility]) with patient. Osteopenic . DJD. Not much erosive disease. No recent labs on Humira. Check today. Osteoporosis 60854187 M8 1.0 Documented osteoporos is. Scan 01/22/17 hip -3.3.Takin g calcium and vit D. Was briefly on Fosamax through Dr Salvador. Not clear why she stopped. On Boniva monthly. She took one dose, then forgot to refill it, but now back on it past 6 mo. Repeat BMD in December 2018. Ischemic colitis 8104590 4 K55.039 [facility] caused this. Still undergoing investigat ions. With well controlled arthritis, rheumatoid vasculitis very unlikely as cause. However, update RF ect. Also chek for anti-phosp holipid antibodies . [id number] Odilon Keyes MD Rheumatol [facility] [place], [address] [place] [address] 02/04/2019 08:35:06 02/04/2019 09:14:44 Seropositive rheumatoid arthritis 750090863 M05.79 Seropositi ve rheumatoid arthritis, known erosive [...] therapy. Reviewed wrist x rays (done at [facility]) with patient. Osteopenic . DJD. Not much erosive disease. Osteoporosis 49139017 M8 1.0 Documented osteoporos is. Scan 01/22/17 hip -3.3.Takjameson g calcium and vit D. Was briefly on Fosamax through Dr Salvador. Not clear why she stopped. On Boniva monthly. She took one dose, then forgot to refill it, but now back on it past 6 mo. Repeat BMD in December 2018. Elbow joint effusion 202 875325 M25.421 R elbow swelling and flexion contractur e.For injection today. [id number] Odilon Keyes MD Rheumatol tasha, [address] [address] 09/16/2019 08:15:49 09/16/2019 08:46:36 Seropositive rheumatoid arthritis 926491462 M05.79 Seropositi ve rheumatoid arthritis, known erosive [...] through Primary Care. Return 6 mo. Osteoporosis 75509711 M8 1.0 Documented osteoporos is. Scan 01/22/17 hip -3.3.Repea t (different machine) -3.1. Taking calcium and vit D.On Boniva past few months. Should continue. Advised she discuss follow up bone density in 2 years with Primary care. [id number] Omari Ortiz MD Rheumatol tasha, [facility] [address] [place] [address] 04/30/2020 07:38:03 04/30/2020 12:07:10 Seropositive rheumatoid arthritis 140560345 M05.79 Seropositi ve rheumatoid arthritis, known erosive [...] Humira for now. Reassess in 6 months. [id number] Omari Ortiz MD Rheumatol tasha, [facility] [address] [place] [address] 05/29/2021 11:02:07 05/29/2021 18:41:38 Seropositive rheumatoid arthritis 789520052 M05.79 Seropositi ve rheumatoid arthritis, known erosive [...] in 12 months or sooner if needed. [id number] Omari Ortiz MD Rheumatol tasha, [address] [place] [address] 10/23/2021 13:28:41 10/27/2021 08:39:57 Seropositive rheumatoid arthritis 575769035 M05.79 Seropositi ve rheumatoid arthritis, known erosive [...] in 6 months or sooner if needed. [id number] Omari Ortiz MD Rheumatol tasha, [address] [address] 2022 07:54:26 06/13/2022 13:47:50 Seropositive rheumatoid arthritis 257835527 M05.79 Seropositi ve rheumatoid arthritis, known erosive [...] has already received my letter. Hand pain 16480820 M79.6 41 Patient unable to separate the third and forth right fingers.?I nterossei dorsal muscle involvemen t vs interossei tendinitis vs other.Dennise ent junior get a course of prednisone for RA flare and will refer to hand surgery for evaluation . Osteoporosis 55121945 M8 1.0 On Ibandronat e, continue for now.Krysten reddy states that she had recent bone density but it is not available to me.Patient to check on this with her pcp. She needs an updated bone density and treatment assessment after bone density. Long-term drug therapy 288307773 Z79.899 On Humira. Patient to have full [...] Nielsen Member ID Guarantor Name 09/16/[address] [facility] ([facility] [id number] Danelle [place] [id number] Danelle Montaño [place] 04/30/[address] [facility] [id number] Danelle [place] [id number] Danelle Sabra [place] 05/29/[address] [facility] ([facility]) [id number] Danelle Chasidy [id number] Danelle Sabra Chasidy 10/23/[address] [facility] ([facility] [id number] Danelle Umaña [id number] Danelle Umaña 2022 1 MEDICARE [place]: [facility] Danelle Umaña [id number] Danelle Umaña 2022 2 [facility] PL[facility] F (MEDICARE SUPPLEMENT) [id number] Danelle Umaña [id number] Danelle Umaña Notes Date Note Type Note [...] which showed hip -3.1. Odilon Keyes MD [address] [place] [address], [address], [facility] 09/16/2019 08:58:35 04/30/2020 text/html This is a [...] which showed hip -3.1. Irma Ortiz MD [address] [place] [address], [address], [facility] 04/30/2020 12:47:39 05/29/2021 text/html Patient is 65 [...] showed hip -3.1. Irma Ortiz MD [address] [place], [address], [facility] 05/29/2021 11:53:19 10/23/2021 text/html Patient is 66 [...] some ongoing synovitis despite Enbrel and low-dose methotrexate..[facility] e December 2015 on Humira instead of [...] which showed hip -3.1. Irma Ortiz MD [address] [place] [address], [address], [facility] 10/23/2021 15:08:35 2022 text/html Patient is 66 [...] On Boniva. Labs reviewed. Irma Ortiz MD [address] [place] [address], [address], [facility] 2022 09:52:53 OBGyn Episode No OBEpisode recorded.
[2025-01-04 08:22] LABS: HBS Num1 0.49 mIU/mL (0-7.99); HBc Num1 0.08 S/CO (0.00-0.79); HBsAGNum1 0.33 S/CO (0.00-0.99); Hepatitis A Antibody IgM 0.17 Index (0-0.79); Hepatitis B Core Antibody Nonreactive (Nonreactive); Hepatitis B Surface Antigen Negative (Negative); ~HepC Num1 0.12 S/CO (0.00-0.79); ~Hepatitis A Antibody IgM Nonreactive (Nonreactive); ~Hepatitis B Surface Antibody NONREACTIVE (Nonreactive); ~Hepatitis C Antibody Nonreactive (Nonreactive)
[2025-01-06 20:09] LABS: TS Negative Control Passed; TS Panel A 0; TS Panel B 0; TS Positive Control Passed; TSpotTB Negative (Negative)
[2025-01-07 15:59] LABS: Vitamin D 25-OH, D2 <4 ng/mL; Vitamin D 25-OH, D3 38 ng/mL; Vitamin D 25-OH, Total 38 ng/mL (30-100)
== END 2025-01-03 15:31 | disposition home or self-care (01) ==
LOC: HO.LAB 15:30
PROVIDERS: Visit Provider Student in an Organized Health Care Education/Training Program
DX: M06.9 Rheumatoid arthritis, unspecified (principal); E55.9 Vitamin D deficiency, unspecified
CPT/HCPCS: 36415; 80053; 82306; 85025; 85652; 86140; 86481; 86704; 86706; 86709; 86803; 87340

== ENCOUNTER 2025-01-10 09:58 | Outpatient (AMB) | payer MEDICARE, OTHER, SELFPAY ==
--- NOTE | 2025-01-10 10:09 | AM.OFFVISNUR ---
Intake Visit Reasons: Evenity #10 Allergies abaloparatide [From Tymlos] Adverse Reaction (Severe, Verified 04/15/24 14:21) Dizziness Bee Stings Adverse Reaction (Unknown, Uncoded 04/15/24 14:21) Swelling Office Meds romosozumab-aqqg 210 mg/2.34 mL(105 mg/1.17 mL x2)subcutaneous syringe Performing Provider: Kiana Garcia MD [place] [facility] [place] Administered by: Radha Leslie RN on 01/10/25 10:09 Dose Route Admin Location Dispensed Lot Number Expiration Date [facility] [employer] Helper 210 mg subcut bilateral upper arms 2.34 mL [id number] 04/25/27 [address]22[address]-11 AMGEN Comments: Patient denies any adverse reactions to previous injections. Tolerated injection well. Assessment & Plan Assessment & Plan Orders: Orders AMB Romosozumab Injection Patient Supplied Today M06.9 - Rheumatoid arthritis, unspecified Medications: New romosozumab-aqqg 210 mg (2.34 mL) subcut ONCE 2.34 mL 0RF M06.9 - Rheumatoid arthritis, unspecified Coding
--- OUTSIDE RECORDS SUMMARY | 2025-01-10 11:19 | XMS_ITS | Data Portability ---
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 Plan of Treatment Reminders Order Date Submit Date Provider Last Modified By Organization Details Last Modified Time Details Appointments None recorded. Lab C-reactive protein, quantitati ve, serum or plasma 2021 022 [facility], [address] [place] [address], [address], 10:32:29 ESR (erythrocy te sedimentat ion rate), blood 2021 022 [facility], [address] [place] [address], [address], 15:47:30 C-reactive protein, quantitati ve, serum or plasma 2020 021 [facility], [address] [place] [address], [address], 11:37:59 ESR (erythrocy te sedimentat ion rate), blood 2020 021 [facility], [address] [place] [address], [address], 14:00:44 Referral hand surgeon referral - Patient unable to separate the third and forth right fingers. 2021 [email or web address] Gardenia Tate MD, [address] [place] [address], [address], 2 15:31:02 Procedures None recorded. Surgeries None recorded. Imaging None recorded. Medication Orders prednisone 10 mg tablet 2021 023 [id number], [address] [place], [address], 3 08:35:18 Humira(CF) Pen 40 mg/0.4 mL subcutaneo us kit 2021 023 [facility], [address] [place] [address], [address], 3 08:35:18 Humira(CF) Pen 40 mg/0.4 mL subcutaneo us kit 2019 020 [email or web address], [address] [place] [address], [address], 3 08:31:12 Patient TargetsNo targets recorded. Patient [...] verif iied by rerun JLW Not Available [facility] [address] [facility], [place], [address], 05/30/2021 11:37:59 05/29/2005/30/2021 SED RATE BY MODIF IED LOCO HIREN sed rate by modified marcelren 9 mm/h < or = 30 normal Not Available [facility] [address], [place], [address], 05/30/2021 17:32:09 06/09/20 22 06/09/2022 CBC W/O AUTO DIFF WBC 7.83 K/? ? ?L 3.98-1 0.04 Not Available [address], [address], 06/09/2022 14:43:29 06/09/20 22 06/09/2022 CBC W/O AUTO DIFF RBC 3.55 M/? ? ?L 3.93-5 .22 low Not Available [address], [address], 06/09/2022 14:43:29 06/09/20 22 06/09/2022 CBC W/O AUTO DIFF HGB 10.4 g/dL 11.2-1 5.7 low Not Available [address], [address], 06/09/2022 14:43:29 06/09/20 22 06/09/2022 CBC W/O AUTO DIFF HCT 32.9 % 34.1-4 4.9 low Not Available [address], [address], 06/09/2022 14:43:29 06/09/20 22 06/09/2022 CBC W/O AUTO DIFF MCV 92.7 fL 79.4-9 4.8 Not Available [address], [address], 06/09/2022 14:43:29 06/09/20 22 06/09/2022 CBC W/O AUTO DIFF MCH 29.3 pg 25.6-3 2.2 Not Available [address], [address], 06/09/2022 14:43:29 06/09/20 22 06/09/2022 CBC W/O AUTO DIFF MCHC 31.6 g/dL 32.2-3 5.5 low Not Available [address], [address], 06/09/2022 14:43:29 06/09/20 22 06/09/2022 CBC W/O AUTO DIFF plt 418 K/? ? ?L 182-36 9 high Not Available [address], [address], 06/09/2022 14:43:29 06/09/20 22 06/09/2022 CBC W/O AUTO DIFF RDW-CV 14.2 % 11.7-1 4.4 Not Available [address], [address], 06/09/2022 14:43:29 06/09/20 22 06/09/2022 ESR sed rate 45.0 0.0-15 .0 high Not Available [address], [address], 06/09/2022 15:47:30 06/09/20 22 2022 COMP. METAB OLIC PANEL glucose 124 mg/dL 70-100 high Not Available [address], [address], 2022 10:32:27 06/09/20 22 2022 COMP. METAB OLIC PANEL BUN 16 mg/dL 7-18 Not Available [address], [address], 2022 10:32:27 06/09/20 22 2022 COMP. METAB OLIC PANEL creatinine 0.8 mg/dL 0.8-1. 3 Not Available [address], [address], 2022 10:32:27 06/09/20 22 2022 COMP. METAB OLIC PANEL B/C 20.0 ratio Not Available [address], [address], 2022 10:32:27 06/09/20 22 2022 COMP. METAB [...] be used in pregn ori. Not Available [address], [address], 2022 10:32:27 06/09/20 22 2022 COMP. METAB OLIC PANEL sodium 139 mmol/ L 136-14 5 Not Available [address], [address], 2022 10:32:27 06/09/20 22 2022 COMP. METAB OLIC PANEL potassium 4.4 mmol/ L 3.5-5. 1 Not Available [address], [address], 2022 10:32:27 06/09/20 22 2022 COMP. METAB OLIC PANEL chloride 102 mmol/ L 96-107 Not Available [address], [address], 2022 10:32:27 06/09/20 22 2022 COMP. METAB OLIC PANEL anion gap 9.1 5.0-15 .0 Not Available [address], [address], 2022 10:32:27 06/09/20 22 2022 COMP. METAB OLIC PANEL CO2 28 mmol/ L 21-32 Not Available [address], [address], 2022 10:32:27 06/09/20 22 2022 COMP. METAB OLIC PANEL calcium 8.9 mg/dL 8.5-10 .3 Not Available [address], [address], 2022 10:32:27 06/09/20 22 2022 COMP. METAB OLIC PANEL total protein 7.3 g/dL 6.4-8. 2 Not Available [address], [address], 2022 10:32:27 06/09/20 22 2022 COMP. METAB OLIC PANEL albumin 3.8 g/dL 3.4-5. 0 Not Available [address], [address], 2022 10:32:27 06/09/20 22 2022 COMP. METAB OLIC PANEL globulin 3.5 g/dL Not Available [address], [address], 2022 10:32:27 06/09/20 22 2022 COMP. METAB OLIC PANEL A/G 1.1 ratio 0.8-2. 0 Not Available [address], [address], 2022 10:32:27 06/09/20 22 2022 COMP. METAB OLIC PANEL total bilirubin 0.50 mg/dL 0.00-1 .00 Not Available [address], [address], 2022 10:32:27 06/09/20 22 2022 COMP. METAB OLIC PANEL AST 13 U/L 0-37 Not Available [address], [address], 2022 10:32:27 06/09/20 22 2022 COMP. METAB OLIC PANEL ALT 19 U/L 6-63 Not Available [address], [address], 2022 10:32:27 06/09/20 22 2022 COMP. METAB OLIC PANEL alk. phos. 75 U/L 50-136 Not Available [address], [address], 2022 10:32:27 06/09/20 22 2022 LIPID PANEL cholesterol 207 mg/dL <200 mg/dl Keri able 200-2 39 mg/dl Borde rline High >240 mg/dl High Not Available [address], [address], 2022 10:32:28 06/09/20 22 2022 LIPID PANEL triglyceride s 55 mg/dL <150 mg/dL Caitlin l 150-1 99 mg/dL Borde rline High 200-4 99 mg/dL High >500 mg/dL Very High Not Available [address], [address], 2022 10:32:28 06/09/20 22 2022 LIPID PANEL direct HDL 76 mg/dL <40 mg/dl - Major Risk for CHD >60 mg/dl - Negat rebecca Risk for CHD Not Available [address], [address], 2022 10:32:28 06/09/20 22 2022 DIREC T [...] r is not lexy corrales. Not Available [address], [address], 2022 10:32:29 06/09/2006/10/2022 C-HERB CTIVE PROTE IN-QU ANTIT ATIVE C-reactive protein -quant 25.0 mg/L 0.0-9. 0 high Not Available [address], [address], 2022 10:32:29 Result Notes None recorded. Problems Name Problem SNOMED Code Status Onset Date Resolution Date Notes Provider Name and Address Organization Details Recorded Time Seropositive rheumatoid arthritis 287977612 Active Odilon Keyes MD [address] [place] [address], [phone], [facility] 6 07:56:04 Anemia 246356964 Active Odilon Keyes MD [address] [place] [address], [address], [facility] 6 07:56:04 Osteoporosis 13298055 Active 2017 Odilon Keyes MD [address] [place] [address], [address], [facility] 8 19:07:30 Problem Notes None recorded. Procedures Surgical History Date Name Laterality Status Provider Name and Address Organization Details Recorded Time 9 Generic Procedure Template completed Odilon Keyes MD [address] [place] [address], [phone], [facility] 02/05/2019 14:27:25 Imaging Results None recorded. Procedure Notes None recorded. Medical Equipment None Reported. Allergies Allergen ID Allergen Name Allergen Category Reaction Reaction Severity Criticality Documentation Date Start Date Code Code System Note Provider Name and Address Organization Details Recorded Time [id number] honey bee venom medicatio n Not available Not available Not available 11/14/2016 12841 7 RxNorm Yany Tyler LPN [facility] 7 09:54:03 Medications Name Sig Start Date [...] Updated DateTime 0 167.64 cm 24 kg/m2 94640.5 4 g 64 /min 140 mm[Hg] 82 mm[Hg] Anne-Marie Rodarte LPN [facility] 0 08:28:42 Date Recorded Body weight Heart rate Systolic blood pressure Diastolic blood pressure Provider Name and Address Organization Details Last Updated DateTime 10/23/2021 03947.36 g 64 /min 110 mm[Hg] 78 mm[Hg] Fransisca Sandoval LPN [facility] 10/23/2021 13:47:19 Date Recorded Body height Body temperature Provider N laura and Address Organization Details Last Updated DateTime 04/30/2020 167.64 cm 96.4 [degF] Nanci Pace LPN [facility] 04/30/2020 09:36:28 Date Recorded Body weight Heart rate Systolic blood pressure Diastolic blood pressure Provider Name and Address Organization Details Last Updated DateTime 05/29/2021 18395.82 g 74 /min 118 mm[Hg] 62 mm[Hg] Fransisca Sandoval LPN [facility] 05/29/2021 11:11:55 Date Recorded Body weight Heart rate Systolic blood pressure Diastolic blood pressure Provider Name and Address Organization Details Last Updated DateTime 2022 26850.84 g 66 /min 108 mm[Hg] 72 mm[Hg] Fransisca Sandoval LPN [facility] 2022 08:11:09 Social History Question Answer Notes LastModified by Organizat ion Details LastModified Time Tobacco Smoking Status Former Smoker MARK Ponce [facility] 10/09/2015 14:23:17 How Much Tobacco Do You Chew? None [email or web address] Information not available 10/09/2015 When Did You Quit Smoking? 16+yearssinc elastcigaret te [email or web address] Information not available 10/09/2015 How Many Days In The Past Year Have You Had A Heavy Drinking Consumption (4+ Female, 5+ Male)? 20 [email or web address] Information not available 10/09/2015 Marital Status Informatio n not available 10/09/2015 What Was The Date Of Your Most Recent Tobacco Screening? 02/05/2019 Information not available 02/16/2019 Sex: Unknown Functional Status Question Answer Note LastModified by Organizat ion Details LastModified Time What is your level of alcohol consumption? 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 Information not available 10/09/2015 Mental [...] virus, quadrivalent, PF 6 completed Not Available [facility] 08/13/2019 02:21:04 Influenza, split virus, quadrivalent, PF 7 completed Not Available [facility] 08/13/2019 02:31:53 Influenza, split virus, quadrivalent, preservative 8 completed MARK Ochoa [facility] 06/14/2018 14:31:22 COVID-19, mRNA, LNP-S, PF, 100 mcg/0.5mL dose or 50 mcg/0.25mL dose 1 completed MARK Long [facility] 06/03/2021 08:48:43 COVID-19, mRNA, LNP-S, PF, 100 mcg/0.5mL dose or 50 mcg/0.25mL dose 1 completed [facility] Cayden[facility] 08:48:56 Td (adult) 6 completed Anne-Marie Bethany, [facility] 06/03/2021 08:49:59 Td (adult) 3 completed Anne-Marie Bethany, ATHLETIC SCOUT null, [facility] 06/03/2021 08:50:12 Influenza, split virus, quadrivalent, preservative 9 completed Ann-Emarie Bethany, [facility] 06/03/2021 08:51:19 Influenza, split virus, quadrivalent, preservative 0 completed Anne-Marie Bethany, [facility] 06/03/2021 08:51:28 Pneumococcal conjugate PCV 13 4 completed Anne-Marie Cayden, A[employer]LETIC [employer]OUT null, [facility] 06/03/2021 08:53:00 pneumococcal polysaccharide PPV23 6 completed Anne-Marie Bethany, [facility] 06/03/2021 08:53:31 COVID-19, mRNA, LNP-S, PF, 100 mcg/0.5mL dose or 50 mcg/0.25mL dose 1 completed Fransisca Sandoval [employer] null, [facility] 10/23/2021 13:45:15 Influenza, split virus, quadrivalent, preservative 1 completed Fransisca Sandoval [employer] null, [facility] 10/23/2021 13:45:42 Past Encounters Encounter ID Performer Location Encounter Start Date Encounter Closed Date Diagnosis/Indication Diagnosis SNOMED-CT Code Diagnosis ICD10 Code Diagnosis Note [id number] Odilon Keyes MD [facility], [address] [address] 10/09/2015 13:58:03 10/10/2015 07:21:08 Seropositive rheumatoid arthritis 702902535 M05.79 Documented seropositi ve rheumatoid arthritis. Onset [...] if she has any perceived side effects. [id number] Odilon Keyes MD [facility] [address] [place] [address] 11/20/2015 09:21:48 11/20/2015 10:06:27 Seropositive rheumatoid arthritis 810924436 M05.79 This patient has a 6 or [...] 4 or 5 weeks. Long-term drug therapy 540086591 Z79.899 On methotrexa te. Discussed need for lab monitoring . Discussed again alcohol consumptio n. She needs to continue to limit this. She has been on Enbrel. She is aware of infection precaution s. [id number] Odilon Keyes MD Rheumatol [address] [place] [address] 12/25/2015 10:43:15 12/25/2015 16:40:23 Seropositive rheumatoid arthritis 039999837 M05.79 Seropositi ve rheumatoid arthritis, erosive disease [...] 6 weeks after starting the Cimzia. Anemia 813236570 D64.9 Recent iron deficiency anemia, almost certainly related to her episodes of copious epistaxis. She is on iron supplement ation. Update labs at next visit. Long-term drug therapy 144293249 Z79.899 On methotrexa te. Discussed need for lab monitoring . Discussed again alcohol consumptio n. She needs to continue to limit this. [id number] Odilon Keyes MD [facility] [address] [place] [address] 03/10/2016 10:57:46 03/11/2016 07:31:57 Seropositive rheumatoid arthritis 655983218 M05.79 Seropositi ve rheumatoid arthritis, known erosive [...] 8 weeks to reassess. Long-term drug therapy 329460035 Z79.899 On methotrexa te, labs have been OK. However, stopping MTX, at least for now. [id number] Odilon Keyes MD Rheumatol [facility], [address] [address] 05/21/2016 08:47:43 05/22/2016 07:44:31 Seropositive rheumatoid arthritis 657774953 M05.79 Seropositi ve rheumatoid arthritis, known erosive [...] if worsening sxs. Active or passive immunization 317907090 Z23 [id number] Odilon Keyes MD [facility], [address] [address] 11/14/2016 09:48:42 11/14/2016 10:25:13 Seropositive rheumatoid arthritis 937734980 M05.79 Seropositi ve rheumatoid arthritis, known erosive [...] her return 6 mo. Check labs. Osteoporosis 05366003 M8 1.0 Documented osteoporos is on scan September 2014. hip -3.5 (Dr Salvador's office). Never treated.Wi ll repeat BMD, and I told her very likely to require treatment. Discussed use of alendronat e. She has good dentition. . [id number] Odilon Keyes MD Rheumatol amelia, [facility] [address] [facility] [place] [place] [address] 05/11/2017 09:46:37 05/11/2017 10:22:22 Seropositive rheumatoid arthritis 126471412 M05.79 Seropositi ve rheumatoid arthritis, known erosive [...] mo. Check labs. Active or passive immunization 209391926 Z23 Osteoporosis 44823364 M8 1.0 Documented osteoporos is. Scan 01/22/17 hip -3.3.Takjameson g calcium and vit D. Was briefly on Fosamax through Dr Salvador. Not clear why she stopped. I have urged treatment with Boniva monthly. Discussed potential side effects. urged weight bearing exercise. Repeat BMD in December 2018. [id number] Odilon Keyes MD Rheumatol tasha, [facility] [address] [facility] [place] [address] 11/24/2017 09:06:29 11/24/2017 09:54:51 Seropositive rheumatoid arthritis 002347926 M05.79 Seropositi ve rheumatoid arthritis, known erosive [...] on Humira. Check today. Tuberculos is screening 573667895 Z11.1 Osteoporosis 94023800 M8 1.0 Documented osteoporos is. Scan 01/22/17 hip -3.3.Takin g calcium and vit D. Was briefly on Fosamax through Dr Salvador. Not clear why she stopped. I urged treatment with Boniva monthly. She took one dose, then forgot to refill it. Promises to refill and take monthly.ur ged continued weight bearing exercise. Repeat BMD in December 2018.check Vit D level. [id number] Odilon Keyes MD [facility] [address] [facility] [place] [place] [address] 06/14/2018 14:17:19 06/14/2018 14:59:50 Seropositive rheumatoid arthritis 475005759 M05.79 Seropositi ve rheumatoid arthritis, known erosive [...] therapy. Reviewed wrist x rays (done at [facility] with patient. Osteopenic . DJD. Not much erosive disease. No recent labs on Humira. Check today. Osteoporosis 98811075 M8 1.0 Documented osteoporos is. Scan 01/22/17 hip -3.3.Takin g calcium and vit D. Was briefly on Fosamax through Dr Salvador. Not clear why she stopped. On Boniva monthly. She took one dose, then forgot to refill it, but now back on it past 6 mo. Repeat BMD in December 2018. Ischemic colitis 3730574 4 K55.039 [facility]. Still undergoing investigat ions. With well controlled arthritis, rheumatoid vasculitis very unlikely as cause. However, update RF ect. Also chek for anti-phosp holipid antibodies . [id number] Odilon Keyes MD [facility] [address] [place] [address] 02/04/2019 08:35:06 02/04/2019 09:14:44 Seropositive rheumatoid arthritis 431868836 M05.79 Seropositi ve rheumatoid arthritis, known erosive [...] therapy. Reviewed wrist x rays (done at [facility]) with patient. Osteopenic . DJD. Not much erosive disease. Osteoporosis 97324196 M8 1.0 Documented osteoporos is. Scan 01/22/17 hip -3.3.Takjameson g calcium and vit D. Was briefly on Fosamax through Dr Salvador. Not clear why she stopped. On Boniva monthly. She took one dose, then forgot to refill it, but now back on it past 6 mo. Repeat BMD in December 2018. Elbow joint effusion 202 850448 M25.421 R elbow swelling and flexion contractur e.For injection today. [id number] Odilon Keyes MD Rheumatol [facility], [address] [address] 09/16/2019 08:15:49 09/16/2019 08:46:36 Seropositive rheumatoid arthritis 598532328 M05.79 Seropositi ve rheumatoid arthritis, known erosive [...] through Primary Care. Return 6 mo. Osteoporosis 60251073 M8 1.0 Documented osteoporos is. Scan 01/22/17 hip -3.3.Repea t (different machine) -3.1. Taking calcium and vit D.On Boniva past few months. Should continue. Advised she discuss follow up bone density in 2 years with Primary care. [id number] Omari Ortiz MD Rheumatol tasha, [facility] [address] [place] [address] 04/30/2020 07:38:03 04/30/2020 12:07:10 Seropositive rheumatoid arthritis 775296749 M05.79 Seropositi ve rheumatoid arthritis, known erosive [...] Humira for now. Reassess in 6 months. [id number] Omari Ortiz MD Rheumatol tasha, [facility] [address] [place] [address] 05/29/2021 11:02:07 05/29/2021 18:41:38 Seropositive rheumatoid arthritis 339127016 M05.79 Seropositi ve rheumatoid arthritis, known erosive [...] in 12 months or sooner if needed. [id number] Omari Ortiz MD Rheumatol tasha, [address] [place] [address] 10/23/2021 13:28:41 10/27/2021 08:39:57 Seropositive rheumatoid arthritis 591401465 M05.79 Seropositi ve rheumatoid arthritis, known erosive [...] in 6 months or sooner if needed. [id number] Omari Ortiz MD Rheumatol tasha, [address] [address] 2022 07:54:26 06/13/2022 13:47:50 Seropositive rheumatoid arthritis 606633199 M05.79 Seropositi ve rheumatoid arthritis, known erosive [...] has already received my letter. Hand pain 79070360 M79.6 41 Patient unable to separate the third and forth right fingers.?I nterossei dorsal muscle involvemen t vs interossei tendinitis vs other.Dennise ent junior get a course of prednisone for RA flare and will refer to hand surgery for evaluation . Osteoporosis 42771161 M8 1.0 On Ibandronat e, continue for now.Krysten reddy states that she had recent bone density but it is not available to me.Patient to check on this with her pcp. She needs an updated bone density and treatment assessment after bone density. Long-term drug therapy 364492400 Z79.899 On Humira. Patient to have full skin check at dermatolog y regularly. Patient to hold Humira if fever or any sign of infection. Health Concerns Section Related Observation LastModified by Organization Detai ls LastModified Time None Recorded Concern Status LastModified by Organization Details LastModified Time None Recorded Advance Directives Directive None Recorded Payers Insurance Date Sequence Insurance Name Policy Number Policy Nielsen Covered Member ID Nielsen Member ID Guarantor Name 2022 1 [place]IC[place] [employer] Danelle Umaña [id number] Danelle Umaña 09/30/2013 1 JAZMIN BYRNE (POS) Odilon Umaña [id number] Danelle Umaña 04/21/2022 1 [employer] (POS) [id number] Danelle Umaña [id number] Danelle Umaña 05/29/2022 1 [facility] (PPO) [id number] Danelle Normanne [id number] Danelle Normanne 2022 2 [facility] PL[facility] F (MEDICARE SUPPLEMENT) [id number] Danelle Umaña [id number] Danelle Umaña 2022 2 [facility] (INDEMNITY) [id number] Danelle Normanne [id number] Danelle Umaña Notes Date Note Type Note [...] which showed hip -3.1. Odilon Keyes MD [address] [place] [address], [address], [facility] 09/16/2019 08:58:35 04/30/2020 text/html This is [...] showed hip -3.1. Irma Ortiz MD [address] [place], [address], [facility] 04/30/2020 12:47:39 05/29/2021 text/html Patient is [...] showed hip -3.1. Irma Ortiz MD [address] [place], [address], [facility] 05/29/2021 11:53:19 10/23/2021 text/html Patient is [...] showed hip -3.1. Irma Ortiz MD [address] [place], [address], [facility] 10/23/2021 15:08:35 2022 text/html Patient is [...] On Boniva. Labs reviewed. Irma Ortiz MD [address] [place] [address], [address], [facility] 2022 09:52:53 OBGyn Episode No OBEpisode recorded.
== END 2025-01-10 10:08 | disposition home or self-care (01) ==
LOC: HO.RHE 09:59
PROVIDERS: PCP Family Medicine; Visit Provider Student in an Organized Health Care Education/Training Program
DX: M06.9 Rheumatoid arthritis, unspecified (principal)

== ENCOUNTER → 2025-01-10 09:58 | Outpatient (BNVA) | payer MEDICARE, OTHER, SELFPAY | PROVIDERS: PCP Family Medicine; Visit Provider Student in an Organized Health Care Education/Training Program | DX: M06.9 Rheumatoid arthritis, unspecified (principal) | CPT/HCPCS: 96372; J3111 ==

== ENCOUNTER 2025-02-21 09:52 | Outpatient (AMB) | payer MEDICARE, OTHER, SELFPAY ==
--- OUTSIDE RECORDS SUMMARY | 2025-02-15 23:59 | XMS_ITS | Continuity of Care Document ---
Author Organization [facility] Address [address] [place] [address]- Care Team Providers Care Machine Shop Inspector Name Role Phone Marilin CHAUDHARI, Hannah Espinosa Primary Care Physic [place] Encounter [facility] Date(s): 02/08/25 - 02/15/25 [facility] [address] [place] [address]- Encounter Diagnosis GREYSON (generalized anxiety disorder)(Discharge Diagnosis) - 02/08/25 Hypothyroidism(Discharge Diagnosis) - 02/08/25 Attending Physician: Marilin CHAUDHARI, Hannah Espinosa Encounter Type: Office Visit Allergies, Adverse Reactions, [...] 12/11/22 Recorded zoster vaccine, inactivated 09/30/22 Recorded [id number] bivalent booster vax 07/30/22 Given pneumococcal 23-valent [...] (Td) 12 11/18/05 Record ed 1Result Comment: [facility]: [id number] 2Result Comment: [facility] [id number] 3Result Comment: pt assessed for contraindications administered without incident, pt kurt well [facility]: 24360-463-97 4Result Comment: [06/24/2017] done at Rheumatology office 5Result Comment: [10/06/2016] done at 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 Carlos Man 8Location [...] cm, 11/04/21 6:59:00 EDT, Height, 65.3, kg, 04/11/22 6:59:00 EDT, Dry Weight Start Date: 11/04/21 [...] 0 Refills, Maintenance, 06/03/24 1:01:00PM EST, Ointment, [facility]/pharmacy #[id number], Partial fill upon patient request [...] Gm, 6 Refills,Maintenance, 08/30/24 2:43:00 PM EST, [id number], Partial fill upon patient request if the prescription is for a schedule II opioid drug., 160, cm, 08/30/24 14:30:00 EST, Height, 66.3, kg, 04/26/24 13:27:00 EDT, Dry Weight Start Date: 08/30/24 Status: Ordered Quantity: 42.5 Unit: g Repeat number: 7 Evenity 105 mg/1.17 mL subcutaneous solution 0 Refills, Maintenance, 02/08/25 12:54:00 PM EDT, Partial fill upon patient request if the prescription is for a schedule II opioid drug. Start Date: 02/08/25 Status: Ordered Repeat number: 1 Humira Pen 40 mg/0.4 [...] 9:10:00 AM EDT, Route to Pharmacy Electronically, [facility]/pharmacy #[id number], Partial fill upon patient request if the prescription is for a schedule II opioid drug., 167.64, cm, 11/04/21 6:59:00 EDT, Height, 65.3, kg, 11/04/21 6:59:00 EDT, Dry Weight Start Date: 11/04/21 Status: Ordered Quantity: 30.0 Unit: tablet Repeat number: 1 levothyroxine 75 mcg (0.075 mg) oral tablet 1 tablet = 75 mcg, By Mouth, Daily, # 90 tablet, 3 Refills, Soft Stop, 12/28/24 5:26:00 PM EDT, [facility]/pharmacy #[id number], 160, cm, 12/27/24 11:42:00 EDT, Height, 66.3, kg, 04/26/24 13:27:00 EDT, Dry Weight Start Date: 12/28/24 Status: Ordered Quantity: 90.0 Unit: tablet Repeat number: 4 Lexapro 10 mg oral tablet 1 tablet = 10 mg, By Mouth, Daily, # 90 tablet, 0 Refills, Maintenance, 02/08/25 1:18:00 PM EDT, Tablet, [facility]/pharmacy #[id number], Partial fill upon patient request if the prescription is for a schedule II opioid drug., 160, cm, 02/08/25 12:55:00 EDT, Height, 66.3, kg, 04/26/24 13:27:00 EDT, Dry Weight Start Date: 02/08/25 Status: Ordered Quantity: 90.0 Unit: tablet Repeat number: 1 Indications: Generalized anxiety disorder; lisinopril 20 mg oral tablet 20 mg, 1, tablet, By Mouth, Daily, # 90 tablet, Refills 3, Tot. Refills 3, Maintenance, 03/31/24 5:59:00 PM EDT, Route to Pharmacy Electronically, [facility]/pharmacy #[id number], Partial fill upon patient request [...] Date: 10/31/21 Status: Ordered Repeat number: 1 Vitamin C = 500 mg, By Mouth, Daily, 0 Refills, Maintenance, 09/09/13 11:19:20 AM EST Start Date: 09/09/13 Status: Ordered Repeat number: 1 Wellbutrin XL 150 mg/24 hours oral tablet, extended release 1 tablet = 150 mg, By Mouth, Every 24 hours, # 90 tablet, 3 Refills, Maintenance, 09/24/23 1:09:00 PM EST, ER Tablet, [facility]/pharmacy #[id number], Partial fill upon patient request if the prescription is for aschedule II opioid drug., 167, cm, 09/07/23 13:08:00 EST, Height, 65.9, kg, 05/04/23 10:52:00 EDT, Dry Weight Start Date: 09/24/23 Status: Ordered Quantity: 90.0 Unit: tablet Repeat number: 4 Indications: Rheumatoid arthritis, unspecified; Problem List Condition Confirmation Course Effective Dates Status H ealth Status Informant Anaplasmosis Confirmed Active Anemia Confirmed Active Anxiety with flying Confirmed Active Atrophic vaginitis Confirmed Active Rectal fissure Confirmed Active Vulvar dystrophy Confirmed Active GREYSON (generalized anxiety disorder) Confirmed Active Generalized anxiety disorder with panic attacks Confirmed Active History of cervical dysplasia Confirmed Active Chronic hypertension Confirmed Active Melena Confirmed Active Osteoporosis Confirmed Active Pleural effusion Confirmed Active Prepyloric ulcer Confirmed Active Rheumatoid arthritis Confirmed Active Thrombocytosis Confirmed Active Varicella Confirmed Active Vulvar dermatitis Confirmed Active 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 Diagnosis Diagnosis Type Effective Dates Health Status Clinical Service Informant GREYSON (generalized anxiety disorder) Discharge Diagnosis 02/08/25 Hypothyroidism Discharge Diagnosis 7/16/25 Social History Social History Type Response Smoking Status Former smoker; Tobac co user in household: No; Other: Quit 30 years ago; entered on: 04/20/14 Sex Sex Representation Female (finding) Note * Purvi Gramajo: PERFORM Event Display: Patient Education/Instruction Authored Date: [id number] Ambulatory Adult Visit Summary [address] [address] Name: JORDAN CORTES : 1955?? Visit: 02/08/2025 12:38?? Ambulatory Visit Instructions ?? Your Care Team Primary Care Provider Hannah Gaston MD? This Visit Provider Hannha Ramirez MD Your Diagnosis GREYSON (generalized anxiety disorder) Hypothyroidism Vitals Signs Pulse Rate: 66 bpm Height: 160 cm Systolic Blood Pressure: 138 mm Hg ?? Diastolic Blood Pressure: 68 mm Hg ?? Oxygen Saturation: 96 % ?? What to do next Scheduled Follow-Up Appointments Thursday 1:40 PM EDT ?? With: Hannah Gaston MD Where: [address] [address]- Status: Pending Thursday 9:00 AM EDT ?? With: Riya Edwards MD Where: [facility] [address] [place] [address]- Status: Pending Future Orders Urine Culture - Routine, Urine Clean Catch, Once, 04/07/24 11:31:00 EDT, Order for Today, [facility], Urine Clean Catch?? Complete Urinalysis - Routine, Once, 04/07/24 11:31:00 EDT, Order for Today, [facility], Urine?? TSH - Routine, Once, 02/08/25 13:21:00 EDT, Order for Today, [facility], Blood?? Medications The list below reflects the information in our records and provided by you today along with any changes made during this visit. Please continue your medications until treatment is completed or stopped by your provider. If this is different from the information you have or there are other questions,please contact the prescribing provider. What How Much When Why Instructions New Escitalopram (Lexapro 10 mg oral tablet) 1 tab(s) Oral Daily GREYSON (generalized anxiety disorder) Pickup at [facility]/pharmacy #[id number] Unchanged Acetaminophen (acetaminophen 500 mg oral capsule) [...] a day as needed for Itch Unchanged Estradiol Topical (estradiol 0.1 mg/ g vaginal cream) See instructions 1 gram vaginally every day for two weeks then twice weekly ?? Unchanged Ibuprofen (ibuprofen 600 mg oral tablet) 1 tab(s) Oral Every 8 hours Unchanged Levothyroxine (levothyroxine 75 mcg (0.075 mg) oral tablet) 1 tab(s) Oral Daily Unchanged Lisinopril (lisinopril 20 mg oral tablet) 1 tab(s) Oral Daily Unchanged Multivitamin Daily Unchanged romosozumab (Evenity 105 mg/ 1.17 mL subcutaneous solution) Pharmacy Information [facility]/pharmacy #[id number]: [address] [place], [place] [id number] [phone] Test Performed Below is a partial list of the tests performed during your Visit. You may have had other tests and procedures not included in this list. Please discuss all test results with your provider. TSH?-- Results Pending -- Medications and Immunizations Administered Medications Given During [...] are strongly encouraged to quit. Please call [facility] Link at [phone] or [phone] ([phone]) or log in to [email or web address] for referrals to smoking cessation programs. ?? The National Suicide Prevention Hotline is available 16/02 if you or someone you know needs to find a reason to keep living. By calling 6-388-888-[employer] (2638) you'll be connected to a skilled, trained counselor at a crisis center in your area. [facility] Portal You can view and manage your care through the patient portal or by using a health care ronna of your choosing. [employer] is a website that allows you to securely view your medical information including your hospital discharge summary, office visit summaries, medications and follow-up visits. You can also request appointments, renew medications, and request access to your medical information using a health care ronna of your choosing, or just ask a question. You can enroll at [email or web address] or register during your next office visit. [facility], in keeping with [facility] guidance, no longer requires face [...] primary care provider, you may find a [facility] provider by calling [facility] at [phone]. Patient Care team information Care Team Personnel Name: Angelina Xie RN Position: [facility] ED RN W/OE and Tasks Member Role: Primary Care Nurse Name: Marilin CHAUDHARI, Hannah Espinosa Position: [facility] Physician - Primary Care Member Role: PCP Address: [address] [place] [address] Telecom: Name: Ana Barrientos RN Position: [facility] RN Member Role: Primary Care Nurse Care Team Related Persons Name: ZIA HOFFMANN Name: IVONNE MEDEL Insurance Providers Guarantor name: JORDAN CORTES Health Plan Information #: 1 Payer: MEDICARE B Payer Identifier: NA Member Number: [id number] Group Number: Subscriber Identifier: [id number] Relationship to Subscriber: self Coverage Type: NA Coverage Verification Date: NA Telecom: NA Address: Health Plan Information #: 2 Payer: [facility] [employer] Payer Identifier: Member Number: [id number] Group Number: [id number] Subscriber Identifier: [id number] Relationship to Subscriber: self Coverage Type: Commercial Indemnity Coverage Verification Date: NA Telecom: NA Address:
--- NOTE | 2025-02-21 10:05 | AM.OFFVISNUR ---
Intake Visit Reasons: Evenity #11 Allergies abaloparatide (From Tymlos) Adverse Reaction (Severe, Verified 04/15/24 14:21) Dizziness Bee Stings Adverse Reaction (Unknown, Uncoded 04/15/24 14:21) Swelling Office Meds romosozumab-aqqg 210 mg/2.34 mL(105 mg/1.17 mL x2)subcutaneous syringe Performing Provider: Kiana Garcia MD Performing Location: [facility] Administered by: Radha Leslie RN on 02/21/25 10:05 Dose Route Admin Location Dispensed Lot Number Expiration Date [facility] Cps Team Lead 210 mg subcut bilateral upper arms 2.34 mL [id number] 05/26/27 14964-088-16 [employer] Total Dispensed Waste 2.34 mL 0 % Comments: Patient here for Evenity injection #11. Patient tolerated injection well. Denies any reactions to previous injections. Assessment & Plan Assessment & Plan Orders: Orders AMB Romosozumab Injection Patient Supplied Today M06.9 - Rheumatoid arthritis, unspecified Coding
--- OUTSIDE RECORDS SUMMARY | 2025-02-21 10:29 | XMS_ITS | Clinical Summary ---
Author Organization [facility] Address [address] [place] [address] Phone Care Team Providers Care Design Maintenance Engineer Name Role Phone Hannah Ramirez MD Primary Care Provider [phone] Allergies Active Allergy Reactions Criticality Noted Date Comments Bee Venom Protein (Honey Bee) 04/15/2022 Other reaction(s): feet and face swelling Medications cefpodoxime (VANTIN) 100 MG tablet Take 1 tablet (100 mg total) by mouth 2 (two) times a day. 12 tablet 04/15/2022 Active Active Problems No known active problems Social History Tobacco Use Types Packs/Day Years Used Date Smoking Tobacco: Never Assessed Education Answer Date Recorded Are you interested in more education? Not on paulette e 11/21/2022 Are you concerned about learning? Not on file 11/21/2022 No 11/21/2022 No 11/21/2022 Digital Access Answer Date Recorded No 12/22/2022 No 12/22/2022 Reliable internet access at home? Not on file 12/22/2022 Device with a working camera? Not on file Comments Unknown Sex and Gender Information Value Date Recorded Sex Assigned at Female 04/15/2022 5:22 PM EDT Legal Sex Female 9:58 PM EDT Gender Identity Female 04/15/2022 5:22 PM EDT Sexual Orientation Not on file Last Filed Vital Signs Vital Sign Reading Time Taken Comments Blood Pressure 115/66 04/15/2022 11:45 PM EDT Pulse 73 04/15/2022 11:45 PM EDT Temperature 37.9 C (100.3 F) 04/15/2022 11:45 PM EDT Respiratory Rate 18 04/15/2022 11:45 PM EDT Oxygen Saturation 100% 04/15/2022 11:45 PM EDT Inhaled Oxygen Concentration - - Weight 60.8 kg (134 lb) 11/03/2022 10:12 AM EDT Height 167.6 cm (5' 6 ) 11/03/2022 10:12 AM EDT Body Mass Index 21.63 11/03/2022 10:12 AM EDT Plan of Treatment Health Maintenance Due Date Last Done Comments LIPID PANEL 1955 DEPRESSION SCREENING 1965 SMOKING Hx and SMOKELESS TOBACCO SCREENING 1966 HEPATITIS C SCREENING 1971 MAMMOGRAM 1993 COLOGUARD 1998 COLONOSCOPY 1998 COLORECTAL CANCER SCREENING 1998 FIT TEST 1998 FOBT 1998 SIGMOIDOSCOPY 1998 VIRTUAL COLONOSCOPY 1998 OSTEOPOROSIS SCREENING INITIAL (ONE-TIME) 2018 Adult Td,Tdap Booster 10/11/2022 10/11/2012, 006 ZOSTER VACCINES (2 of 2) 11/25/2022 09/30/2022 COVID-19 VACCINE ( season) 2024 07/30/2022, 06/25/2021, 05/13/2021, Additional history exists RSV VACCINE (1 - 1-dose 75+ series) 2028 PNEUMOCOCCAL VACCINES (50+ years) Completed 07/30/2022, 06/12/2016, 05/10/2014 HEPATITIS A VACCINES Aged Out No long er eligible based on patient's age to complete this topic HIB VACCINES Aged Out No longer eligi ble based on patient's age to complete this topic MENINGOCOCCAL VACCINES (ACWY) Aged Out No longer eligible based on patient's age to complete this topic MENINGOCOCCAL VACCINES (B) Aged Out N o longer eligible based on patient's age to complete this topic Medical Devices Not on file Insurance MEDICARE PART A & B [employer] MEDICARE SUPPLEMENT MEDICARE PART A & B [facility] MEDICARE SUPPLEMENT MEDICARE PART A & B [employer] MEDICARE SUPPLEMENT MEDICARE PART A & B [employer] [place] [id number] MEDICARE PART A & B [employer] [place] [phone] MEDICARE PART A & B [employer] MEDICARE SUPPLEMENT MEDICARE PART A & B MEDICARE SUPPLEMENT MEDICARE PART A & B Member Subscriber Plan / Payer (Ef fective 2021-) Name:Danelle Umaña Member ID:[id number] Relation to Subscriber:Self Name:ChasidyDanelle Subscriber ID:[id number] Payer ID:[id number] Group ID:Not on file Type:Medicare Address: [employer] [id number] [facility] EXTENSION MEDICARE SUPPLEMENT MEDICARE PART A & B [facility] EXTENSION MEDICARE SUPPLEMENT Care Teams Design Maintenance Engineer Relationship Specialty Start Date End Date Hannah Ramirez MD [address] [place] [address] [phone] [email or web address] PCP - General Family Medicine 04/15/22 Additional Source Comments The information contained in this document represents components of the legal health record. It is not the complete legal health record.[facility]
--- OUTSIDE RECORDS SUMMARY | 2025-02-21 10:30 | XMS_ITS | Data Portability ---
Author Organization [facility], , [facility] Address [address] [place] [address] Care Team Providers Care Green Building Architect Name Role Phone JOSE ANGEL WALKER Primary Care Provider [phone] Assessment No assessment recorded. Plan of Treatment Reminders Order Date Submit Date Provider Last Modified By Organization Details Last Modified Time Details Appointments None recorded. Lab C-reactive protein, quantitati ve, serum or plasma 2021 022 [facility], [address] [place] [address], [address], 10:32:29 ESR (erythrocy te sedimentat ion rate), blood 2021 022 [facility], [address] [place] [address], [address], 15:47:30 C-reactive protein, quantitati ve, serum or plasma 2020 0[address] [facility], [address] [place] [address], [address], 11:37:59 ESR (erythrocy te sedimentat ion rate), blood 2020 021 [facility], [address] [place] [address], [address], 14:00:44 Referral hand surgeon referral - Patient unable to separate the third and forth right fingers. 2021 [email or web address] Gardenia Tate MD, [address] [place] [address], [address], 2 15:31:02 Procedures None recorded. Surgeries None recorded. Imaging None recorded. Medication Orders prednisone 10 mg tablet 2021 023 [id number], [address] [place], [address], 3 08:35:18 Humira(CF) Pen 40 mg/0.4 mL subcutaneo us kit 2021 023 [facility], [address] [place] [address], [address], 3 08:35:18 Humira(CF) Pen 40 mg/0.4 mL subcutaneo us kit 2019 020 [email or web address] [facility], [address] [place] [address], [address], 3 08:31:12 Patient TargetsNo targets recorded. Patient [...] verif iied by rerun JLW Not Available [facility] [address] [place], [address], 05/30/2021 11:37:59 05/29/20 21 05/30/2021 SED RATE BY MODIF IED LOCO HIREN sed rate by modified zacarias 9 mm/h < or = 30 normal Not Available [facility] [address], [place], [address], 05/30/2021 17:32:09 06/09/20 22 06/09/2022 CBC W/O AUTO DIFF WBC 7.83 K/ L 3.98-1 0.04 Not Available [address], [address], 06/09/2022 14:43:29 06/09/20 22 06/09/2022 CBC W/O AUTO DIFF RBC 3.55 M/ L 3.93-5 .22 low Not Available [address], [address], 06/09/2022 14:43:29 06/09/20 22 06/09/2022 CBC W/O AUTO DIFF HGB 10.4 g/dL 11.2-1 5.7 low Not Available [address], [address], 06/09/2022 14:43:29 06/09/20 22 06/09/2022 CBC W/O AUTO DIFF HCT 32.9 % 34.1-4 4.9 low Not Available [address], [address], 06/09/2022 14:43:29 06/09/20 22 06/09/2022 CBC W/O AUTO DIFF MCV 92.7 fL 79.4-9 4.8 Not Available [address], [address], 06/09/2022 14:43:29 06/09/20 22 06/09/2022 CBC W/O AUTO DIFF MCH 29.3 pg 25.6-3 2.2 Not Available [address], [address], 06/09/2022 14:43:29 06/09/20 22 06/09/2022 CBC W/O AUTO DIFF MCHC 31.6 g/dL 32.2-3 5.5 low Not Available [address], [address], 06/09/2022 14:43:29 06/09/20 22 06/09/2022 CBC W/O AUTO DIFF plt 418 K/ L 182-36 9 high Not Available [address], [address], 06/09/2022 14:43:29 06/09/20 22 06/09/2022 CBC W/O AUTO DIFF RDW-CV 14.2 % 11.7-1 4.4 Not Available [address], [address], 06/09/2022 14:43:29 06/09/20 22 06/09/2022 ESR sed rate 45.0 0.0-15 .0 high Not Available [address], [address], 06/09/2022 15:47:30 06/09/20 22 2022 COMP. METAB OLIC PANEL glucose 124 mg/dL 70-100 high Not Available [address], [address], 2022 10:32:27 06/09/20 22 2022 COMP. METAB OLIC PANEL BUN 16 mg/dL 7-18 Not Available [address], [address], 2022 10:32:27 06/09/20 22 2022 COMP. METAB OLIC PANEL creatinine 0.8 mg/dL 0.8-1. 3 Not Available [address], [address], 2022 10:32:27 06/09/20 22 2022 COMP. METAB OLIC PANEL B/C 20.0 ratio Not Available [address], [address], 2022 10:32:27 06/09/20 22 2022 COMP. METAB [...] be used in pregn ori. Not Available [address], [address], 2022 10:32:27 06/09/20 22 2022 COMP. METAB OLIC PANEL sodium 139 mmol/ L 136-14 5 Not Available [address], [address], 2022 10:32:27 06/09/20 22 2022 COMP. METAB OLIC PANEL potassium 4.4 mmol/ L 3.5-5. 1 Not Available [address], [address], 2022 10:32:27 06/09/20 22 2022 COMP. METAB OLIC PANEL chloride 102 mmol/ L 96-107 Not Available [address], [address], 2022 10:32:27 06/09/20 22 2022 COMP. METAB OLIC PANEL anion gap 9.1 5.0-15 .0 Not Available [address], [address], 2022 10:32:27 06/09/20 22 2022 COMP. METAB OLIC PANEL CO2 28 mmol/ L 21-32 Not Available [address], [address], 2022 10:32:27 06/09/20 22 2022 COMP. METAB OLIC PANEL calcium 8.9 mg/dL 8.5-10 .3 Not Available [address], [address], 2022 10:32:27 06/09/20 22 2022 COMP. METAB OLIC PANEL total protein 7.3 g/dL 6.4-8. 2 Not Available [address], [address], 2022 10:32:27 06/09/20 22 2022 COMP. METAB OLIC PANEL albumin 3.8 g/dL 3.4-5. 0 Not Available [address], [address], 2022 10:32:27 06/09/20 22 2022 COMP. METAB OLIC PANEL globulin 3.5 g/dL Not Available [address], [address], 2022 10:32:27 06/09/20 22 2022 COMP. METAB OLIC PANEL A/G 1.1 ratio 0.8-2. 0 Not Available [address], [address], 2022 10:32:27 06/09/20 22 2022 COMP. METAB OLIC PANEL total bilirubin 0.50 mg/dL 0.00-1 .00 Not Available [address], [address], 2022 10:32:27 06/09/20 22 2022 COMP. METAB OLIC PANEL AST 13 U/L 0-37 Not Available [address], [address], 2022 10:32:27 06/09/20 22 2022 COMP. METAB OLIC PANEL ALT 19 U/L 6-63 Not Available [address], [address], 2022 10:32:27 06/09/20 22 2022 COMP. METAB OLIC PANEL alk. phos. 75 U/L 50-136 Not Available [address], [address], 2022 10:32:27 06/09/20 22 2022 LIPID PANEL cholesterol 207 mg/dL <200 mg/dl Keri able 200-2 39 mg/dl Borde rline High >240 mg/dl High Not Available [address], [address], 2022 10:32:28 06/09/20 22 2022 LIPID PANEL triglyceride s 55 mg/dL <150 mg/dL Caitlin l 150-1 99 mg/dL Borde rline High 200-4 99 mg/dL High >500 mg/dL Very High Not Available [address], [address], 2022 10:32:28 06/09/20 22 2022 LIPID PANEL direct HDL 76 mg/dL <40 mg/dl - Major Risk for CHD >60 mg/dl - Negat rebecca Risk for CHD Not Available [address], [address], 2022 10:32:28 06/09/20 22 2022 DIREC T LDL direct LDL 117 mg/dL RISK CATEG ORY LDL GOAL _ CHD or CHD Risk Equiv alent s <100 mg/dl (10-y ear risk >20%) 2+ Risk Facto rs <130 mg/dl (10-y ear risk <= 20%) 0-1 Risk Facto r <160 mg/dl Almo st all peopl e with 0-1 risk facto r have a 10 year risk <10%, thus 10 year risk asses ment in peopl e with 0-1 risk facto r is not lexy corrales. Not Available [address], [address], 2022 10:32:29 06/09/20 22 2022 C-HERB CTIVE PROTE IN-QU ANTIT ATIVE C-reactive protein -quant 25.0 mg/L 0.0-9. 0 high Not Available [address], [address], 2022 10:32:29 Result Notes None recorded. Problems Name Problem SNOMED Code Status Onset Date Resolution Date Notes Provider Name and Address Organization Details Recorded Time Seropositive rheumatoid arthritis 179695890 Active Odilon Keyes MD [address] [place] [address], [address], [facility] 6 07:56:04 Anemia 507559949 Active Odilon Keyes MD [address] [place] [address], [address], [facility] 6 07:56:04 Osteoporosis 73248563 Active 2017 Odilon Keyes MD [address] [place] [address], [address], [facility] 8 19:07:30 Problem Notes None recorded. Procedures Surgical History Date Name Laterality Status Provider Name and Address Organization Details Recorded Time 9 Generic Procedure Template completed Odilon Keyes MD [address] [place] [address], [id number], [facility] 02/05/2019 14:27:25 Imaging Results None recorded. Procedure Notes None recorded. Medical Equipment None Reported. Allergies Allergen ID Allergen Name Allergen Category Reaction Reaction Severity Criticality Documentation Date Start Date Code Code System Note Provider Name and Address Organization Details Recorded Time 043836 honey bee venom medicatio n Not available Not available Not available 11/14/2016 51390 7 RxNorm Yany Tyler LPN [facility] 7 09:54:03 Medications Name Sig [...] index (BMI) Body weight Heart rate Systolic And Diastolic Provider Name and Address Organization Details Last Updated DateTime 09/16/2019 167.64 cm 24 kg/m2 09321.54 g 64 /min 140/82 mm[Hg] Anne-Marie Rodarte LPN [facility] 09/16/2019 08:28:42 Date Recorded Body weight Heart rate Systolic And Diastolic Provider Name and Address Organization Details Last Updated DateTime 10/23/2021 12580.36 g 64 /min 110/78 mm[Hg] Fransisca Sandoval LPN [facility] 10/23/2021 13:47:19 Date Recorded Body height Body temperature Provider N laura and Address Organization Details Last Updated DateTime 04/30/2020 167.64 cm 96.4 [degF] Nanci Pace LPN [facility] 04/30/2020 09:36:28 Date Recorded Body weight Heart rate Systolic And Diastolic Provider Name and Address Organization Details Last Updated DateTime 05/29/2021 32634.82 g 74 /min 118/62 mm[Hg] Fransisca Sandoval LPN [facility] 05/29/2021 11:11:55 Date Recorded Body weight Heart rate Systolic And Diastolic Provider Name and Address Organization Details Last Updated DateTime 2022 20343.84 g 66 /min 108/72 mm[Hg] Fransisca Sandoval LPN [facility] 2022 08:11:09 Social History Question Answer Notes LastModified by Organizat ion Details LastModified Time Tobacco Smoking Status Former Smoker John Barrientos LPN [facility] 10/09/2015 14:23:17 How Much Tobacco Do You Chew? None [email or web address] Information not available 10/09/2015 When Did You Quit Smoking? 16+yearssinc elastcigaret te [email or web address] Information not available 10/09/2015 How Many Days In The Past Year Have You Had A Heavy Drinking Consumption (4+ Female, 5+ Male)? 20 [email or web address] Information not available 10/09/2015 Marital Status Informatio n not available 10/09/2015 What Was The Date Of Your Most Recent Tobacco Screening? 02/05/2019 Information not available 02/16/2019 Sex: Unknown Functional Status Question Answer Note LastModified by Organizat ion Details LastModified Time What is your level of alcohol consumption? 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 Information not available 10/09/2015 Mental Status None [...] virus, quadrivalent, PF 6 completed Not Available [facility] 08/13/2019 02:21:04 Influenza, split virus, quadrivalent, PF 7 completed Not Available [facility] 08/13/2019 02:31:53 Influenza, split virus, quadrivalent, preservative 8 completed MARK Ochoa [facility] 06/14/2018 14:31:22 COVID-19, mRNA, LNP-S, PF, 100 mcg/0.5mL dose or 50 mcg/0.25mL dose 1 completed MARK Long [facility] 06/03/2021 08:48:43 COVID-19, mRNA, LNP-S, PF, 100 mcg/0.5mL dose or 50 mcg/0.25mL dose 1 completed MARK Long [facility] 06/03/2021 08:48:56 Td (adult) 6 completed Anne-Marie Cayden, POLICY CHECKER null, [facility] 06/03/2021 08:49:59 Td (adult) 3 completed [facility]den, [facility]2021 08:50:12 Influenza, split virus, quadrivalent, preservative 9 completed Anne-Marie Napoleon, POLICY CHECKER null, [facility] 06/03/2021 08:51:19 Influenza, split virus, quadrivalent, preservative 0 completed Anne-Marie Napoleon [facility] 06/03[facility]2021 08:51:28 Pneumococcal conjugate PCV 13 4 completed Anne-Marie Cayden, POLICY [facility] 06/03/2021 08:53:00 pneumococcal polysaccharide PPV23 6 completed Anne-Marie Napoleon, POLICY [facility] 06/03/2021 08:53:31 COVID-19, mRNA, LNP-S, PF, 100 mcg/0.5mL dose or 50 mcg/0.25mL dose 1 completed MARK Quintanilla [facility] 10/23/2021 13:45:15 Influenza, split virus, quadrivalent, preservative 1 completed MARK Quintanilla [facility] 10/23/2021 13:45:42 Past Encounters Encounter ID Performer Location Encounter Start Date Encounter Closed Date Diagnosis/Indication Diagnosis SNOMED-CT Code Diagnosis ICD10 Code Diagnosis Note [id number] Odilon eKyes MD [facility] [address] [address] 10/09/2015 13:58:03 10/10/2015 07:21:08 Seropositive rheumatoid arthritis 808463575 M05.79 Documented seropositi ve rheumatoid arthritis. Onset [...] if she has any perceived side effects. [id number] Odilon Keyes MD [facility] [address] [address] 11/20/2015 09:21:48 11/20/2015 10:06:27 Seropositive rheumatoid arthritis 080449990 M05.79 This patient has a 6 or [...] 4 or 5 weeks. Long-term drug therapy 387085388 Z79.899 On methotrexa te. Discussed need for lab monitoring . Discussed again alcohol consumptio n. She needs to continue to limit this. She has been on Enbrel. She is aware of infection precaution s. [id number] Odilon Keyes MD Rheumatol [address] [address] 12/25/2015 10:43:15 12/25/2015 16:40:23 Seropositive rheumatoid arthritis 680790960 M05.79 Seropositi ve rheumatoid arthritis, erosive disease [...] 6 weeks after starting the Cimzia. Anemia 805178410 D64.9 Recent iron deficiency anemia, almost certainly related to her episodes of copious epistaxis. She is on iron supplement ation. Update labs at next visit. Long-term drug therapy 663007508 Z79.899 On methotrexa te. Discussed need for lab monitoring . Discussed again alcohol consumptio n. She needs to continue to limit this. [id number] Odilon Keyes MD Rheumatol tasha, [address] [address] 03/10/2016 10:57:46 03/11/2016 07:31:57 Seropositive rheumatoid arthritis 593373153 M05.79 Seropositi ve rheumatoid arthritis, known erosive [...] 8 weeks to reassess. Long-term drug therapy 153621679 Z79.899 On methotrexa te, labs have been OK. However, stopping MTX, at least for now. [id number] Odilon Keyes MD Rheumatol [address] [address] 05/21/2016 08:47:43 05/22/2016 07:44:31 Seropositive rheumatoid arthritis 617957287 M05.79 Seropositi ve rheumatoid arthritis, known erosive [...] if worsening sxs. Active or passive immunization 133287006 Z23 [id number] Odilon Keyes MD Rheumatol tasha, [address] [address] 11/14/2016 09:48:42 11/14/2016 10:25:13 Seropositive rheumatoid arthritis 192081235 M05.79 Seropositi ve rheumatoid arthritis, known erosive [...] her return 6 mo. Check labs. Osteoporosis 53589710 M8 1.0 Documented osteoporos is on scan September 2014. hip -3.5 (Dr Salvador's office). Never treated.Wi ll repeat BMD, and I told her very likely to require treatment. Discussed use of alendronat e. She has good dentition. . [id number] Odilon Keyes MD Rheumatol [address] [address] 05/11/2017 09:46:37 05/11/2017 10:22:22 Seropositive rheumatoid arthritis 603761149 M05.79 Seropositi ve rheumatoid arthritis, known erosive [...] mo. Check labs. Active or passive immunization 159642708 Z23 Osteoporosis 19464111 M8 1.0 Documented osteoporos is. Scan 01/22/17 hip -3.3.Takin g calcium and vit D. Was briefly on Fosamax through Dr Salvador. Not clear why she stopped. I have urged treatment with Boniva monthly. Discussed potential side effects. urged weight bearing exercise. Repeat BMD in December 2018. [id number] Odilon Keyes MD Rheumatol tasha, [address] [address] 11/24/2017 09:06:29 11/24/2017 09:54:51 Seropositive rheumatoid arthritis 620773590 M05.79 Seropositi ve rheumatoid arthritis, known erosive [...] on Humira. Check today. Tuberculos is screening 722867813 Z11.1 Osteoporosis 00372689 M8 1.0 Documented osteoporos is. Scan 01/22/17 hip -3.3.Takin g calcium and vit D. Was briefly on Fosamax through Dr Salvador. Not clear why she stopped. I urged treatment with Boniva monthly. She took one dose, then forgot to refill it. Promises to refill and take monthly.ur ged continued weight bearing exercise. Repeat BMD in December 2018.check Vit D level. [id number] Odilon Keyes MD [facility] [address] [place] [address] 06/14/2018 14:17:19 06/14/2018 14:59:50 Seropositive rheumatoid arthritis 512738848 M05.79 Seropositi ve rheumatoid arthritis, known erosive [...] therapy. Reviewed wrist x rays (done at [facility]) with patient. Osteopenic . DJD. Not much erosive disease. No recent labs on Humira. Check today. Osteoporosis 95311172 M8 1.0 Documented osteoporos is. Scan 01/22/17 hip -3.3.Takin g calcium and vit D. Was briefly on Fosamax through Dr Salvador. Not clear why she stopped. On Boniva monthly. She took one dose, then forgot to refill it, but now back on it past 6 mo. Repeat BMD in December 2018. Ischemic colitis 7317123 4 K55.039 Recent hospitaliz ation.[facility] ear what caused this. Still undergoing investigat ions. With well controlled arthritis, rheumatoid vasculitis very unlikely as cause. However, update RF ect. Also chek for anti-phosp holipid antibodies . [id number] Odilon Keyes MD Rheumatol [address] [address] 02/04/2019 08:35:06 02/04/2019 09:14:44 Seropositive rheumatoid arthritis 313341951 M05.79 Seropositi ve rheumatoid arthritis, known erosive [...] therapy. Reviewed wrist x rays (done at [facility]) with patient. Osteopenic . DJD. Not much erosive disease. Osteoporosis 91562878 M8 1.0 Documented osteoporos is. Scan 01/22/17 hip -3.3.Laly chambers calcium and vit D. Was briefly on Fosamax through Dr Salvador. Not clear why she stopped. On Boniva monthly. She took one dose, then forgot to refill it, but now back on it past 6 mo. Repeat BMD in December 2018. Elbow joint effusion 202 242055 M25.421 R elbow swelling and flexion contractur e.For injection today. [id number] Odilon Keyes MD Rheumatol [address] [address] 09/16/2019 08:15:49 09/16/2019 08:46:36 Seropositive rheumatoid arthritis 090911903 M05.79 Seropositi ve rheumatoid arthritis, known erosive [...] through Primary Care. Return 6 mo. Osteoporosis 67058509 M8 1.0 Documented osteoporos is. Scan 01/22/17 hip -3.3.Repea t (different machine) -3.1. Taking calcium and vit D.On Boniva past few months. Should continue. Advised she discuss follow up bone density in 2 years with Primary care. [id number] Omari Ortiz MD Rheumatol tasha, [facility] [address] [place] [address] 04/30/2020 07:38:03 04/30/2020 12:07:10 Seropositive rheumatoid arthritis 555071018 M05.79 Seropositi ve rheumatoid arthritis, known erosive [...] Humira for now. Reassess in 6 months. [id number] Omari Ortiz MD Rheumatol tasha, [facility] [address] [place] [address] 05/29/2021 11:02:07 05/29/2021 18:41:38 Seropositive rheumatoid arthritis 904227540 M05.79 Seropositi ve rheumatoid arthritis, known erosive disease at the wrists.Ale bolanos is on Humira and is doing well.Snehal nue for now.Krysten reddy just had labs that are not available [...] in 12 months or sooner if needed. [id number] Omari Ortiz MD Rheumatol amelia, [address] [place] [address] 10/23/2021 13:28:41 10/27/2021 08:39:57 Seropositive rheumatoid arthritis 525468759 M05.79 Seropositi ve rheumatoid arthritis, known erosive [...] in 6 months or sooner if needed. [id number] Omari Ortiz MD Rheumatol tasha, [address] [place] [address] 2022 07:54:26 06/13/2022 13:47:50 Seropositive rheumatoid arthritis 530300426 M05.79 Seropositi ve rheumatoid arthritis, known erosive [...] to every 2 weeks. Patient got flu shot.Patie nt to get Shingrix vaccine, COVID booster. [...] has already received my letter. Hand pain 35788190 M79.6 41 Patient unable to separate the third and forth right fingers.?I nterossei dorsal muscle involvemen t vs interossei tendinitis vs other.Dennise cira junior get a course of prednisone for RA flare and will refer to hand surgery for evaluation . Osteoporosis 94482889 M8 1.0 On Ibandronat e, continue for now.Dennisevamsi reddy states that she had recent bone density but it is not available to me.Patient to check on this with her pcp. She needs an updated bone density and treatment assessment after bone density. Long-term drug therapy 173964579 Z79.899 On Humira. Patient to have full skin check at dermatolog y regularly. Patient to hold Humira if fever or any sign of infection. Health Concerns Section Related Observation LastModified by Organization Favio ls LastModified Time None Recorded Concern Status LastModified by Organization Details LastModified Time None Recorded Advance Directives Directive None Recorded Payers Insurance Date Sequence Insurance Name Policy Number Policy Nielsen Covered Member ID Nielsen Member ID Guarantor Name 2022 1 [place] [employer] Danelle Umaña [id number] Danelle Umaña 09/30/2013 1 [employer] [place] Odilon Umaña [id number] Danelle Uamña 04/21/2022 1 [employer] [place]) [id number] Danelle Umaña [id number] Danelle Umaña 05/29/2022 1 [facility] (PPO) [id number] Danelle Umaña [id number] Danelle Umaña 2022 2 [employer] - S[employer]IOR SERVICES PLAN F (MEDICARE SUPPLEMENT) [id number] Danelle Umaña [id number] Danelle Umaña 2022 2 [facility] (INDEMNITY) [id number] Danelle Umaña [id number] Danelle Umaña OBGyn Episode No OBEpisode recorded.
== END 2025-02-21 10:07 | disposition home or self-care (01) ==
LOC: HO.RHE 09:52
PROVIDERS: PCP Family Medicine; Visit Provider Student in an Organized Health Care Education/Training Program
DX: M06.9 Rheumatoid arthritis, unspecified (principal)

== ENCOUNTER → 2025-02-21 09:52 | Outpatient (BNVA) | payer MEDICARE, OTHER, SELFPAY | PROVIDERS: PCP Family Medicine; Visit Provider Student in an Organized Health Care Education/Training Program | DX: M06.9 Rheumatoid arthritis, unspecified (principal) | CPT/HCPCS: 96372; J3111 ==

== ENCOUNTER 2025-04-11 13:33 | Outpatient (REF) | payer MEDICARE, OTHER, SELFPAY ==
[2025-04-11 14:44] LABS: Alanine Aminotransferase 13 U/L (0-31); Albumin Level 4.3 g/dL (3.5-5.0); Alkaline Phosphatase 44 U/L (39-117); Anion Gap 11 (12-20); Aspartate Amino Transferase 21 U/L (5-31); Blood Urea Nitrogen 17 mg/dL (9-16); Calcium 9.0 mg/dL (8.4-10.2); Carbon Dioxide 27 mmol/L (22-29); Chloride 106 mmol/L (96-108); Estimated Glomerular Filt Rate > 60; Potassium 4.3 mmol/L (3.3-5.1); Sodium 140 mmol/L (135-145); Total Protein 6.9 g/dL (6.5-8.0)
--- OUTSIDE RECORDS SUMMARY | 2025-04-11 17:28 | XMS_ITS | Encounter Summary ---
Author Organization [facility] Address [address] [place] [phone] Phone Care Team Providers Care Gallery Manager Name Role Phone Hannah Ramirez MD Primary Care Provider [phone] Reason for Referral * MRI/CAT Scan - Closed Specialty Diagnoses / Procedures Referred By Al reddy Referred To Contact Radiology Diagnoses Deviated nasal septum Atypical face pain Nasal congestion Other allergic rhinitis Procedures CT Face Astrid Becerra PA-C Phone: tel: fax: [email or web address] Referral ID Status Reason Start Date Expiration Date Visits Re quested Visits Authorized [id number] Closed 06/20/2022 06/20/2023 1 1 Encounter Details Date Type Department Care Team (Late st Contact Info) Description 06/20/2022 Transcribe Orders Virtual Department [address] [place] [address] Astrid Becerra PA-C [address] [place] [phone] [email or web address] Deviated nasal septum (Primary Dx); Atypical face pain; Nasal congestion; Other allergic rhinitis Social History Tobacco Use Types Packs/Day Years Used Date Smoking Tobacco: Never Assessed Comments Unknown Sex and Gender Information Value Date Recorded Sex Assigned at Female 04/15/2022 5:22 PM EDT Legal Sex Female 9:58 PM EDT Gender Identity Female 04/15/2022 5:22 PM EDT Sexual Orientation Not on file documented as of this encounter Plan of Treatment Not on file documented as of this encounter Results * CT FACE WITHOUT CONTRAST (07/04/2022 3:23 PM EST) Anatomical Region Laterality Modality Face Computed Tomogra phy 07/06/2022 9:52 PM EST Impressions 07/06/2022 10:35 PM EST -10 mm periapical cyst surrounding the mesial root of the left first mandibular molar, protruding into the inferior left maxillary sinus, with adjacent mild mucosal thickening. -Minimal paranasal sinus disease elsewhere, as described. Narrative 07/06/2022 10:[address] FACE WITHOUT CONTRAST TECHNIQUE: Multidetector-row CT of the face was performed without intravenous contrast using tailored dose modulation techniques. Images were reconstructed in the axial, coronal, and sagittal planes. COMPARISON: None FINDINGS: Aerodigestive Tract: Normal. The mucosa appears symmetrical. Dentoalveolar arches: There is a 10 x 10 mm cystic lesion arising from the mesial root of the left first maxillary molar (ADA 14), with interrupted thin peripheral calcification (4:25), and protrusion into the inferior aspect of the left maxillary sinus. There is a dental crown surrounding this tooth and several others. Salivary Glands: Normal. No obvious lesion is present. Paranasal Sinuses and nasal cavity: T mild mucosal thickening along the inferior maxillary sinuses bilaterally, including adjacent to the periapical cyst seen adjacent to the left first maxillary molar. Opacification of a posterior left ethmoid air cell. Remainder of the paranasal sinuses are well aerated. There is mild leftward nasal septal deviation. The ostiomeatal units and frontal recesses appear widely patent Petrous Apices, Clivus, Basilar Cisterns, Cavernous Sinuses, Sella, Jugular Foramina and Poststyloid Parapharyngeal Spaces: Normal. No skull base mass. Lymph Nodes: Normal. There are no nodes meeting CT criteria for pathologic involvement. Brain and Orbits: Normal. No detectable abnormality is present in the imaged portions of the brain and orbits. Bones and Soft Tissues: Normal. No suspicious osseous lesions are present. Procedure Note Avel Aguilar MD - 07/06/2022 CT FACE WITHOUT CONTRAST TECHNIQUE: Multidetector-row CT of the face was performed withoutintravenous contrast using tailored dose modulation techniques. Imageswere reconstructed in the axial, coronal, and sagittal planes. COMPARISON: None FINDINGS: Aerodigestive Tract: Normal. The mucosa appears symmetrical. Dentoalveolar arches: There is a 10 x 10 mm cystic lesion arising from themesial root of the left first maxillary molar (ADA 14), with interruptedthin peripheral calcification (4:25), and protrusion into the inferioraspect of the left maxillary sinus. There is a dental crown surroundingthis tooth and several others. Salivary Glands: Normal. No obvious lesion is present. Paranasal Sinuses and nasal cavity: T mild mucosal thickening along theinferior maxillary sinuses bilaterally, including adjacent to theperiapical cyst seen adjacent to the left first maxillary molar.Opacification of a posterior left ethmoid air cell. Remainder of theparanasal sinuses are well aerated. There is mild leftward nasal septaldeviation. The ostiomeatal units and frontal recesses appear widelypatent Petrous Apices, Clivus, Basilar Cisterns, Cavernous Sinuses, Sella, Jugular Foramina and Poststyloid Parapharyngeal Spaces: Normal. No skullbase mass. Lymph Nodes: Normal. There are no nodes meeting CT criteria for pathologicinvolvement. Brain and Orbits: Normal. No detectable abnormality is present in theimaged portions of the brain and orbits. Bones and Soft Tissues: Normal. No suspicious osseous lesions are present. IMPRESSION: -10 mm periapical cyst surrounding the mesial root of the left firstmandibular molar, protruding into the inferior left maxillary sinus, withadjacent mild mucosal thickening. -Minimal paranasal sinus disease elsewhere, as described. Astrid PLASCENCIA CT HEAD/NECK Final R esult documented in this encounter Visit Diagnoses Diagnosis Deviated nasal septum- Primary Atypical face pain Nasal congestion Other diseases of nasal cavity and sinuses Other allergic rhinitis Deviated nasal septum Atypical face pain Nasal congestion Other diseases of nasal cavity and sinuses Other allergic rhinitis documented in this encounter Care Teams Gallery Manager Relationship Specialty Start Date End Date Hannah Ramirez MD [address] [place] [phone] [email or web address] PCP - General Family Medicine 04/15/22 documented as of this encounter Additional Source Comments The information contained in this document represents components of the legal health record. It is not the complete legal health record.[facility]
--- OUTSIDE RECORDS SUMMARY | 2025-04-11 17:28 | XMS_ITS | Encounter Summary ---
Author Organization [facility] Address [address] [place] [id number] Phone Care Team Providers Care Extractor Loader And Unloader Name Role Phone Hannah Ramirez MD Primary Care Provider Encounter Details Date Type Department Care Team (Late st Contact Info) Description 06/20/2022 Procedure [facility], Ct Scan - [address] [address] Social History Tobacco Use Types Packs/Day Years [...] on file documented as of this encounter Visit Diagnoses Not on filedocumented in this encounter Care Teams Extractor Loader And Unloader Relationship Specialty Start Date End Date Hannah Ramirez [facility] [place] [address] [email or web address] PCP - General Family Medicine 04/15/22 documented as of this encounter Additional Source Comments The information contained in this document represents components of the legal health record. It is not the complete legal health record.[facility]
--- OUTSIDE RECORDS SUMMARY | 2025-04-11 17:28 | XMS_ITS | Clinical Summary ---
Author Organization [facility] Address [address] [place] [address] Phone Care Team Providers Care Road Mender Name Role Phone Hannah Ramirez MD Primary Care Provider [phone] Allergies Active Allergy Reactions Criticality Noted Date [...] ZOSTER VACCINES (2 of 2) 11/25/2022 09/30/2022 INFLUENZA VACCINE (#1) 2025 , 06/25/2021, 05/13/2021, Additional history exists COVID-19 VACCINE ( season) 2025 07/30/2022, 06/25/2021, 05/13/2021, Additional history exists RSV [...] file Insurance MEDICARE PART A & B [employer] MEDICARE SUPPLEMENT MEDICARE PART A & B [employer] MEDICARE SUPPLEMENT MEDICARE PART A & B [employer] MEDICARE SUPPLEMENT MEDICARE PART A & B [employer] MEDICARE SUPPLEMENT MEDICARE PART A & B [employer] MEDICARE SUPPLEMENT MEDICARE PART A & B [facility] MEDICARE SUPPLEMENT MEDICARE PART A & B Member Subscriber Plan / Payer ( fective 2021-) Name:Chasidy Danelle Member ID:[id number] Relation to Subscriber:Self Name:Chasidy Danelle Subscriber ID:[id number] Payer ID:[id number] Group ID:Not on file Type:Medicare Address: [facility] [employer] [facility] [address] [place] [phone] [facility] MEDICARE SUPPLEMENT MEDICARE PART A & B [facility] EXTENSION MEDICARE SUPPLEMENT MEDICARE PART A & B [facility] EXTENSION MEDICARE SUPPLEMENT Care Teams Road Mender Relationship Specialty Start Date End Date Hannah Ramirez MD [address] [place] [id number] PCP - General Family Medicine 04/15/22 Additional Source Comments The information contained in this document represents components of the legal health record. It is not the complete legal health record.[facility]
== END 2025-04-11 13:34 | disposition home or self-care (01) ==
LOC: HO.LAB 13:33
PROVIDERS: PCP Family Medicine; Visit Provider Student in an Organized Health Care Education/Training Program
DX: M05.9 Rheumatoid arthritis with rheumatoid factor, unspecified (principal); M81.0 Age-related osteoporosis without current pathological fracture; Z51.81 Encounter for therapeutic drug level monitoring; Z79.620 Long term (current) use of immunosuppressive biologic; Z79.899 Other long term (current) drug therapy
CPT/HCPCS: 36415; 80053; 82306; 99212

== ENCOUNTER 2025-04-11 14:51 | Outpatient (AMB) | payer MEDICARE, OTHER, SELFPAY ==
--- NOTE | 2025-04-11 15:12 | A.OFFVIS_ITS ---
Vital Signs 04/11/25 15:17 Height 5 ft 6 in Weight 149 lb 0.52 oz BMI 24.1 BP 134/80 Blood Pressure Location Rt brachial Position Sitting Pulse 65 Pulse Source Pulse Oximeter Pulse Oximetry (%) 98 Oxygen Delivery Method Room Air Intake Visit Reasons: RA/ evenity #12 Intake Note: Patient presents for RA follow up. Allergies abaloparatide (From Tymlos) Adverse Reaction (Severe, Verified 04/11/25 15:17) Dizziness Bee Stings Adverse Reaction (Unknown, Uncoded 04/15/24 14:21) Swelling HPI Comments Details: Patient is a 69-year-old female with depression, hypothyroidism, hypertension, GERD, seropositive rheumatoid arthritis and osteoporosis here today for follow up Interval History: Patient last seen 04/15/[address] Ling - On Humira 40mg SC every 2 weeks and Evenity SC monthly - She states that last week she over did it. She did some work in her yd and cleaned her daughter's house. She is having some pain at the right 2nd MCP associated with swelling but very minimal. She took ibuprofen once or twice. Otherwise she feels any well. Has not had any recent illnesses. She received 2 Evenity injections so far, injections were uneventful - 1 swollen joint on exam, low disease activity - No changes to medications Today - On Humira 40mg SC every 2 weeks and Evenity SC monthly - To receive last dose of Evenity this month - Doing well overall Rheumatologic History: Initial history: This is a 68-year-old female with seropositive rheumatoid arthritis who presents as a new patient. Her previous bridge carpenter left the practice. Patient states that she was diagnosed [place] [address] Keyes. Symptoms started with pain, stiffness of her wrists, knuckles, ankles, neck and elbows. Stated that she was on hydroxychloroquine for 1-2 years and it was ineffective. Per patient she was briefly on methotrexate, states that she was also very briefly on it, she could not take it due to regular alcohol consumption as well as possible side effects. She has been on Humira since approximately 2016 with good effect. Today patient states that she feels well overall with no joint pain, stiffness or swelling. Compliant with Humira 40 mg every other week. States that she was diagnosed with osteoporosis a few years ago and has been on Boniva for 3-4 years. She denies any fevers, weight change, cough or shortness of breath. She smoked socially for 2-3 years in her late 20s. Patient is unaware of any family history of an autoimmune rheumatic disease. Denies any history of DVT/PE Current Rheumatology Medication(s): Humira 40mg SC every 2 weeks Evenity 210mg SC every month PFS Medical History Basal cell carcinoma Anaplasmosis Rheumatoid arthritis Pleural effusion Osteoporosis Chronic hypertension Surgical History H/O cone biopsy of cervix Hx of colonoscopy Family History Mother Osteoporosis Hypertension Breast cancer Father Hypertension Myocardial infarction Social History Household Members: Significant Other Alcohol intake: current Alcohol intake frequency: a few times a week Alcohol type: wine Patient Tobacco Use Status: Former Tobacco user Current occupational status: retired 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 Review of Systems Const Details: Review of Systems Constitutional: Denies fever, chills, weight loss ENT: Denies vision changes, eye pain or eye redness, dental caries, dry mouth GI: Denies nausea, vomiting, diarrhea, abdominal pain, change in BM Pulm: Denies SOB, BARBER, hemoptysis, wheezing Cards: Denies chest pain, palpitations Skin: Denies Raynaud's, rash, nail changes, photosensitivity, EDITOR IN CHIEF: Denies headaches, weakness, paresthesias, recurrent falls MSK: as per HPI All other systems reviewed and are unremarkable except noted above Physical Exam Exam Exam: Vital signs reviewed Physical Examination CONSTITUITIONAL Patient alert and cooperative. Well appearing and in no apparent painful distress MSK Hands * Right Hand: Able to make a fist. Synovial hypertrophy with tenderness to palpation of the 2nd MCP. No other swelling or tenderness to palpation of the MCPs, PIPs or DIPs noted * Left Hand: Able to make a fist. No swelling or tenderness to palpation of the MCPs, PIPs or DIPs. * Herbedens nodes noted bilaterally Wrists * Right Wrist: Full ROM to flexion and extension. No swelling or TTP * Left Wrist: Full ROM to flexion and extension. No swelling or TTP Elbows * Right Elbow: Full ROM. No swelling or TTP. No TTP of the medial epicondyle. No TTP of the lateral epicondyle * Left Elbow: Full ROM. No swelling or TTP. No TTP of the medial epicondyle. No TTP of the lateral epicondyle Shoulders * Right shoulder: Full ROM. No swelling noted. No TTP of the AC joint. No TTP of the subacromial bursa. No TTP of the posterior shoulder * Left shoulder: Full ROM. No swelling noted. No TTP of the AC joint. No TTP of the subacromial bursa. No TTP of the posterior shoulder Knees * Right knee: Full ROM. No swelling noted. No TTP of the knee joint line. No TTP of pes anserine bursa * Left knee: Full ROM. No swelling noted. No TTP of the knee joint line. No TTP of pes anserine bursa. * Crepitations felt bilaterally Ankles * Right ankle: Good ankle dorsiflexion and plantar flexion. No swelling. No TTP of the ankle joint * Left ankle: Good ankle dorsiflexion and plantar flexion. No swelling. No TTP of the ankle joint Feet * Right foot: Negative squeeze test * Left foot: Negative squeeze test Tender points? * No tenderness to palpation of the bilateral trapezius, supraspinatus, anterior costochondral junctions, bilateral suboccipital muscle insertions SKIN No rashes Vital Signs: BMI result Body Mass Index 24.1 Results Reviewed Results Reviewed: Laboratory Tests 04/11/25 13:44 Sodium 140 Potassium 4.3 Chloride 106 Carbon Dioxide 27 BUN 17 H Creatinine 0.68 25-OH Vitamin D Total 43.3 Laboratory Tests 06/23/23 09:20 Rheumatoid Factor 20.6 H Cycl Citrul Peptide IgG 40 H Laboratory Tests 01/03/25 15:44 Hepatitis A IgM Ab Nonreactive Hep Bs Antigen Negative Hep Bs Antibody NONREACTIVE Hep B Core Total Ab Nonreactive Hepatitis C Ab (EIA) Nonreactive TB Test (T-Spot) Com Negative DEXA 09/2023 FINDINGS: LEFT FEMUR, NECK: BMD 0.552 g/cm2, Z-score -1.7, T-score -3.5, osteoporosis. LEFT FEMUR, TOTAL: BMD 0.671 g/cm2, Z-score -1.1, T-score -2.7, osteoporosis. AP SPINE L1-L4: BMD 0.993 g/cm2, Z-score 0.2, T-score -1.6, osteopenia. Assessment & Plan Assessment & Plan (1) Rheumatoid arthritis: Comment: +RF++CCP dx 2009 HCQ 1-2 years ineffective MTX briefly (patient has self discontinued it) Enbrel secondary nonresponse Humira since 2016, effective Code(s): M06.9 - Rheumatoid arthritis, unspecified Category: Medical Qualifiers: Rheumatoid arthritis location: multiple sites Rheumatoid factor presence: unspecified presence Qualified Code(s): M06.9 - Rheumatoid arthritis, unspecified Plan: #Seropositive RA Patient is a 69-year-old female with seropositive rheumatoid arthritis here today for follow up. Currently with low disease activity with 1 tender joint on examination. Patient is interested in tapering her Humira and so we will decrease her frequency to every 3 weeks and then follow up Plan - Decrease Humira frequency to once every 3 weeks - RTC 4 months - Labs before visit: CBC, CMP, ESR, CRP (2) Osteoporosis: Comment: DEXA 07/2021: AP Spine -1.8, Left femur neck -3.0, Left femur total -2.0 DEXA 09/2023: AP Spine -1.6, Left femur neck -3.5, Left femur total -2.7 Boniva started Tymlos 12/2023-DC after few doses due to dizziness & room spinning Evenity 01/2024 - 03/2025 Code(s): M81.0 - Age-related osteoporosis without current pathological fracture Category: Medical Qualifiers: Osteoporosis type: age-related Presence of current pathological fracture: without current pathological fracture Qualified Code(s): M81.0 - Age- related osteoporosis without current pathological fracture Plan: #Osteoporosis Patient with osteoporosis. Patient will complete course of the Evenity this month. We will schedule her to start IV Reclast next month Plan - Complete Evenity - Start IV Reclast 1 month after last Evenity shot (3) Encounter for monitoring of adalimumab therapy: Code(s): Z51.81 - Encounter for therapeutic drug level monitoring; Z79.620 - intermission coordinator (current) use of immunosuppressive biologic Plan: #Long-term Use of TNF Inhibitors: Humira Discussed with the patient the benefits and risks of TNF inhibitors for the management of the rheumatic condition Benefits include reduce pain, maintenance of remission and reduction of flares as well as progression of the disease Risks include injection sites/infusion reactions, serious infections (such as bacterial infections, opportunistic infections), malignancy, delaminating syndromes, autoimmune phenomena, CHF exacerbations, palmar plantar psoriasis and cytopenias Recommended rotating injection sites, and holding medication during and for up to 1 week after resolution of a febrile illness or open skin wound (4) Encounter for ongoing osteoporosis non-bisphosphonate therapy: Code(s): M81.0 - Age-related osteoporosis without current pathological fracture; Z79.899 - Other rat exterminator (current) drug therapy Plan: #Long-term Use of Bisphosphonates Risks and benefits of bisphosphonates in the management of osteoporosis Benefits include improved bone density, decreased fracture risk Risks include atypical femoral fractures, GI upset, esophageal strictures Contraindicated in patients with a creatinine clearance < 30 to 35 ml/min Keep vitamin-D at least 35 ng/mL Plan I spent 30 minutes reviewing the record and labs, taking a history, examining the patient, discussing the treatment plan, ordering diagnostic work up and documenting in the medical record Orders: Orders Complete Blood Count Auto Diff Today Z79.899 - Other rat exterminator (current) drug therapy Erythrocyte Sedimentation Rate Today Z79.899 - Other [place] (current) drug therapy Comprehensive Met. Panel 4 Months Z79.899 - Other rat exterminator (current) drug therapy C Reactive Protein Today Z79.899 - Other [place] [facility] (current) drug therapy Coding Level of Care Code Est Pt Level 4 (19748) Complex EM visit Add On G2211 Diagnoses Rheumatoid arthritis involving multiple sites, unspecified whether rheumatoid factor present M06.9 Rheumatoid arthritis location: multiple sites Rheumatoid factor presence: unspecified presence Age-related osteoporosis without current pathological fracture M81.0 Osteoporosis type: age-related Presence of current pathological fracture: without current pathological fracture Encounter for monitoring of adalimumab therapy Z51.81; Z79.620 Encounter for ongoing osteoporosis non-bisphosphonate therapy M81.0; Z79.899
[2025-04-11 15:17] VITALS: BP 134/80; PULSE 65; O2SAT 98; BMI 24.1
== END 2025-04-11 15:42 | disposition home or self-care (01) ==
LOC: HO.RHES 14:52
PROVIDERS: PCP Family Medicine; Visit Provider Student in an Organized Health Care Education/Training Program
DX: M06.9 Rheumatoid arthritis, unspecified (principal); M81.0 Age-related osteoporosis without current pathological fracture; Z51.81 Encounter for therapeutic drug level monitoring; Z79.620 Long term (current) use of immunosuppressive biologic; Z79.899 Other long term (current) drug therapy
CPT/HCPCS: 99214; G2211

== ENCOUNTER 2025-05-05 10:12 | Outpatient (AMB) | payer MEDICARE, OTHER, SELFPAY ==
--- NOTE | 2025-05-05 10:30 | AM.OFFVISNUR ---
Intake Visit Reasons: evenity #13 Allergies abaloparatide (From Tymlos) Adverse Reaction (Severe, Verified 04/11/25 15:17) Dizziness Bee Stings Adverse Reaction (Unknown, Uncoded 04/15/24 14:21) Swelling Office Meds romosozumab-aqqg 210 mg/2.34 mL(105 mg/1.17 mL x2)subcutaneous syringe Performing Provider: Kiana Garcia MD Performing Location[place] [facility] [place] Administered by: Doris Rivas RN on 05/05/25 10:34 Dose Route Admin Location Dispensed Lot Number Expiration Date [facility] [employer] Teacher 210 mg subcut bilateral upper arms 2.34 mL [id number] 04/25/27 90025-181-41 [employer] Total Dispensed Waste 2.34 mL 0 % Comments: patient received her last evenity shot (#12). injections were placed in bilateral upper arms. both sites were clear, dry, and intake. no adverse reactions noted. Assessment & Plan Assessment & Plan Orders: Orders AMB Romosozumab Injection Patient Supplied Today M81.0 - Age-related osteoporosis without current pathological fracture Coding
== END 2025-05-05 10:26 | disposition home or self-care (01) ==
LOC: HO.RHES 10:12
PROVIDERS: PCP Family Medicine; Visit Provider Student in an Organized Health Care Education/Training Program
DX: M81.0 Age-related osteoporosis without current pathological fracture (principal)

== ENCOUNTER → 2025-05-05 10:12 | Outpatient (BNVA) | payer MEDICARE, OTHER, SELFPAY | PROVIDERS: PCP Family Medicine; Visit Provider Student in an Organized Health Care Education/Training Program | DX: M81.0 Age-related osteoporosis without current pathological fracture (principal); Z79.620 Long term (current) use of immunosuppressive biologic | CPT/HCPCS: 96372; J3111 ==

== ENCOUNTER 2025-06-15 12:02 | Outpatient (REF) | payer MEDICARE, OTHER, SELFPAY ==
[2025-06-15 12:13] LABS: MANUAL DIFF FLAG NO
[2025-06-15 12:32] LABS: Hematocrit 34.9 % (37.0-47.0); Hemoglobin 11.2 g/dl (12.0-16.0); Imm Gran Abs Auto 0.03 X10*3/uL (0.00-0.03); Imm Gran Pct Auto 0.4 % (0.0-0.4); Lymphocytes Absolute Auto 2.1 X10*3/uL (1.2-4.9); Mean Corpuscular HGB Conc 32.1 g/dl (31.0-35.0); Mean Corpuscular Hemoglobin 30.6 pg (27.0-33.0); Mean Corpuscular Volume 95.4 fL (80.0-98.0); NRBC Abs Auto 0.000 X10*3/uL (0.0-0.012); NRBC Pct Auto 0.0 /100WBC (0.0-0.2); Platelet Count 305 X10*3/uL (160-400); Red Blood Count 3.66 X10*6/uL (4.20-5.50); White Blood Count 7.0 X10*3/uL (4.8-10.8)
[2025-06-15 13:24] LABS: Alanine Aminotransferase 14 U/L (0-31); Albumin Level 4.3 g/dL (3.5-5.0); Alkaline Phosphatase 40 U/L (39-117); Anion Gap 11 (12-20); Aspartate Amino Transferase 17 U/L (5-31); Blood Urea Nitrogen 23 mg/dL (9-16); Calcium 9.4 mg/dL (8.4-10.2); Carbon Dioxide 29 mmol/L (22-29); Chloride 105 mmol/L (96-108); Estimated Glomerular Filt Rate > 60; Potassium 4.8 mmol/L (3.3-5.1); Sodium 140 mmol/L (135-145); Total Protein 7.1 g/dL (6.5-8.0)
--- OUTSIDE RECORDS SUMMARY | 2025-06-15 18:14 | XMS_ITS | Continuity of Care Document ---
Author Organization [place] - [facility], [facility] Address [address] [place] [address] Care Team Providers Care Compliance Spec Name Role Phone JOSE ANGEL WALKER Primary Care Provider [phone] Assessment Encounter Date Assessment Date Assessment LastModified by Organization Details LastModified Time 03/20/2025 03/20/2025 Danelle is a 69-year-old female who presents today for evaluation of a sinus cyst noted that her dentist CT scan. CT was personally reviewed interpreted which showed a left periapical lucency of her first left maxillary molar. She has obvious evidence of Odontogenic Sinusitis on side which is fairly mild at this time. I did talk about the risks of doing a sinus procedure at the same time of the extraction which would lead to likely oral antral fistula and chronic infections. I think she would benefit from staying on her allergy medications and getting the tooth moved. -Continue Claritin daily - Follow-up with her oral surgeon for likely tooth removal and eventual implant - Will hold off on any ENT sinus intervention until fully healed from dental implants - Otherwise follow-up as needed [email or web address] Not available 03/20/2025 14:00:59 Plan of Treatment Reminders Order Date Submit Date Provider Last Modified By Organization Details Last Modified Time Details Appointments None record ed. Lab None record ed. Referral None record ed. Procedures None record ed. Surgeries None record ed. Imaging None record ed. Medication Orders None record ed. Patient TargetsNo targets recorded. Patient InstructionsNo instructions recorded. Reason for Referral None Reported. Problems Name Problem SNOMED Code Status Onset Date Resolution Date Notes Provider Name and Address Organization Details Recorded Time Bleeding from nose 501296206 Active 2015 Epistaxis ; Note: Date Diagnosed : 08/31/2015 4:13 PM (R04.0) Not Available [facility] 4 02:31:15 Deviated nasal septum 702359326 Active 2015 Deviated nasal septum; Note: Date Diagnosed : 09/19/2015 10:26 AM (J34.2) Rodríguez Avalos DO [address], [place], [address] , [place] - [facility] 5 13:48:59 Nasal congestion 99479670 Active 2021 Nasal congestio n; Note: Date Diagnosed : 05/28/2022 1:31 PM (R09.81) Rodríguez Avalos DO [address] [facility],[address], [place], [address] , [facility] - [facility] 5 13:48:54 Allergic rhinitis 66393318 Active 2021 Other allergic rhinitis; Note: Date Diagnosed : 05/28/2022 1:31 PM (J30.89) Not Available [facility] 4 02:31:08 Atypical facial pain 62977037 Active 2021 Atypical facial pain; Note: Date Diagnosed : 05/28/2022 1:30 PM (G50.1) Not Available [facility] 4 02:31:09 Chronic sinusitis 94719484 Active 2024 Rodríguez Avalos DO [address] [facility] [place] [address], [place], [address] , 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 - [facility] 5 13:59:46 Problem Notes None recorded. Medical Equipment None Reported. Medications Name Sig Start Date Stop Date Status Note LastModified by Organization Details LastModified Time trazodone 50 mg tablet TAKE 1/2 TABLET BY MOUTH DAILY AT BEDTIME active Not Available Not Available No t Available lisinopri l 20 mg tablet TAKE 1 TABLET BY MOUTH EVERY DAY active Not Available Not Available No t Available acetamino phen 300 mg-codein e 30 mg tablet 10/17 completed Medicati on ID: [id number] D uration Value: 3 Reason: () Brand Name: acetamin ophen-co deine Se nd Method: E-Prescr ibed Sub s Allowed: subs OK Medic ationGen ericName : acetamin ophen-co deine Not Available Not Available Not Available amoxicill in 500 mg tablet TAKE 1 TABLET BY MOUTH EVERY 8 HOURS UNTIL FINISHED active Not Available Not Available No t Available levothyro xine 75 mcg tablet TAKE 1 TABLET BY MOUTH EVERY DAY active Not Available Not Available No t Available methotrex ate sodium 2.5 mg tablet 05/28 completed Medicati on ID: [id number] D uration Value: 28 Brand Name: methotre xate sodium S end Method: E-Prescr ibed Sub s Allowed: subs OK Speci al Instruct ion: TAKE 6 TABLETS BY MOUTH WEEKLY M marcelo Wolfeic Name: methotre xate sodium Not Available Not Available Not Available cephalexi n 500 mg capsule TAKE 1 CAPSULE BY MOUTH TWICE A DAY FOR 7 DAYS active Not Available Not Available No t Available gabapenti n 300 mg capsule 05/28 completed Medicati on ID: [id number] D uration Value: 30 Brand Name: gabapent in Send Method: E-Prescr ibed Sub s Allowed: subs OK Medic ationGen ericName : gabapent in Not Available Not Available Not Available leucovori n calcium 5 mg tablet 05/28 completed Medicati on ID: [id number] D uration Value: 28 Brand Name: leucovor in calcium Send Method: E-Prescr ibed Sub s Allowed: subs OK Speci al Instruct ion: TAKE TWO TABLETS BY MOUTH WEEKLY APPROXIM ATELY 12 HOURS AFTER METHOTRE XATE DOSE Med icationG enericNa me: leucovor in calcium Not Available Not Available Not Available clobetaso l 0.05 % topical ointment APPLY OINTMENT TO SKIN TWO TIMES DAILY NEEDED FOR ITCHING active Not Available Not Available No t Available estradiol 0.01% (0.1 mg/gram) vaginal cream PLACE 1 GRAM VAGINALL Y EVERY DAY FOR TWO WEEKS THEN TWICE WEEKLY active Not Available Not Available No t Available naproxen 500 mg tablet 05/28 completed Medicati on ID: [id number] D uration Value: 30 Brand Name: naproxen Send Method: E-Prescr ibed Sub s Allowed: subs OK Medic ationGen ericName : naproxen Not Available Not Available Not Available amoxicill in 500 mg-potass ium clavulana te 125 mg tablet TAKE 1 TABLET BY MOUTH EVERY 12 HOURS FOR 7 DAYS active Not Available Not Available No t Available escitalop herminia 10 mg tablet TAKE 1 TABLET BY MOUTH EVERY DAY active Not Available Not Available No t Available Humira 40 mg/0.8 mL subcutane ous syringe kit active Medicati on ID: [id number] B rand Name: Humira S end Method: E-Prescr ibed Sub s Allowed: subs OK Medic ationGen ericName : Humira Not Available Not Available Not Available bupropion HCl XL 150 mg 24 hr tablet, extended release TAKE 1 TABLET BY MOUTH EVERY 24 HOURS active Not Available Not Available No t Available Boniva active Medicati on ID: [id number] B rand Name: Boniva S end Method: E-Prescr ibed Sub s Allowed: subs OK Medic ationGen ericName : Boniva Not Available Not Available Not Available Enbrel SureClick 50 mg/mL (1 mL) subcutane ous pen injector 05/28 completed Medicati on ID: [id number] D uration Value: 28 Brand Name: Enbrel SureClic k Send Method: E-Prescr ibed Sub s Allowed: subs OK Medic ationGen ericName : Enbrel SureClic k Not Available Not Available Not Available Vitals Date Recorded Body weight Body mass index (BMI) Body height Provider Name and Address Organization Details Last Updated DateTime 03/20/2025 64035.93 g 22.6 kg/m2 167.64 cm Karishma Blanco [facility] 03/20/2025 13:42:06 Social History None recorded. Functional Status None recorded. Mental Status None recorded. Family History Nothing Reported. Medical History No medical history recorded. Gynecological HistoryNo gynecological history recorded. Obstetrics History GPAL:G 0 P 0 0 0 0 Past Encounters Encounter ID Performer Location Encounter Start Date Encounter Closed Date Diagnosis/Indication Diagnosis SNOMED-CT Code Diagnosis ICD10 Code Diagnosis IMO Codes Diagnosis Note [id number] Rodríguez Avalos DO [facility] [address] [place] [address] 03/20/2025 13:23:31 03/20/2025 13:59:41 Chronic sinusitis 38379893 J32.8 50963 Nasal congestion 7347180 0 R09.81 31854 Deviated nasal septum 12 7314602 J34.2 241631 Radicular cyst 50519534 K04.8 7834 Health Concerns Section Related Observation LastModified by Organization Detai ls LastModified Time None Recorded Concern Status LastModified by Organization Details LastModified Time None Recorded Payers Encounter Date Sequence Insurance Name Policy Number Policy Nielsen Covered Member ID Nielsen Member ID Guarantor Name 03/20/2025 2 [facility] INDEMNITY PLAN (INDEMNITY) [id number] Danelle Umaña [id number] Danelle Umaña 03/20/2025 1 MEDICARE [place]: [employer] Danelle Umaña [id number] Danelle Umaña Notes Date Note Type Note Provider Name and Address Organization Details Recorded Time 03/20/2025 text/html ROS as noted in the HPI Danelle is a 69-year-old female with a history of rheumatoid arthritis who presents for sinus concerns. Hx of chronic sinusitis. Was seen by dentist recently who noted a cyst in the left maxillary sinus. Needs some dental work and got a CT cone beam scan. OTC: claritin, flonase, intermittently. I was able to review the imaging today thanks to the patient bring a flash drive. She has evidence of a periapical lucency in her first maxillary molar on the left with very minimal bilateral maxillary sinusitis. Rodríguez Avalos DO [address] [facility] [address], [place], [address], [place] - [facility] 03/20/2025 14:01:15 OBGyn Episode No OBEpisode recorded.
--- OUTSIDE RECORDS SUMMARY | 2025-06-15 18:14 | XMS_ITS | Data Portability ---
Author Organization [place] - [facility], Allergy Address [address] [address] Care Team Providers Care J2Ee Java Developer Name Role Phone JOSE ANGEL WALKER Primary Care Provider [phone] Assessment Encounter Date Assessment Date Assessment LastModified [...] Organization Details Recorded Time Bleeding from nose 688892188 Active 2015 Epistaxis ; Note: Date Diagnosed : 08/31/2015 4:13 PM (R04.0) Not Available [facility] 4 02:31:15 Deviated nasal septum 817475952 Active 2015 Deviated nasal septum; Note: Date Diagnosed : 09/19/2015 10:26 AM (J34.2) Rodríguez Avalos, DO [address], [place], [address] , [facility] - [facility] 5 13:48:59 Nasal congestion 49211686 Active 2021 Nasal congestio n; Note: Date Diagnosed : 05/28/2022 1:31 PM (R09.81) Rodríguez Avalos, DO [address] [facility],[address], [place], [address] , [facility] - [facility] 5 13:48:54 Allergic rhinitis 31250976 Active 2021 Other allergic rhinitis; Note: Date Diagnosed : 05/28/2022 1:31 PM (J30.89) Not Available [facility] 4 02:31:08 Atypical facial pain 44818889 Active 2021 Atypical facial pain; Note: Date Diagnosed : 05/28/2022 1:30 PM (G50.1) Not Available [facility] 4 02:31:09 Chronic sinusitis 21894410 Active 2024 Rodríguez Avalos, DO [address] [facility] [place] [address], [place], [address] , [facility] - [facility] 5 13:48:49 Radicular cyst 79966442 Active 2024 Rodríguez Avalos DO [address] [facility] [place], [place], [address] , [facility] - [facility] 5 13:59:46 Problem Notes None recorded. Medical [...] mg tablet 10/17 completed Medicati on ID: [id number] D uration Value: 3 Reason: () Brand [...] mg tablet 05/28 completed Medicati on ID: [id number] D uration Value: 28 Brand Name: methotre xate sodium S end Method: E-Prescr ibed Sub s Allowed: subs OK Speci al Instruct ion: TAKE 6 TABLETS BY MOUTH WEEKLY M edicatio nGeneric Name: methotre xate sodium Not Available Not Available Not Available cephalexi n 500 mg capsule TAKE 1 CAPSULE BY MOUTH TWICE A DAY FOR 7 DAYS active Not Available Not Available No t Available gabapenti n 300 mg capsule 05/28 completed Medicati on ID: [id number] D uration Value: 30 Brand Name: gabapent in Send Method: E-Prescr ibed Sub s Allowed: subs OK Medic ationGen ericName : gabapent in Not Available Not Available Not Available leucovori n calcium 5 mg tablet 05/28 completed Medicati on ID: [id number] D uration Value: 28 Brand Name: leucovor [...] mg tablet 05/28 completed Medicati on ID: [id number] D uration Value: 30 Brand Name: naproxen [...] ous syringe kit active Medicati on ID: [id number] B rand Name: Humira S end Method: E-Prescr ibed Sub s Allowed: subs OK Medic ationGen ericName : Humira Not Available Not Available Not Available bupropion HCl XL 150 mg 24 hr tablet, extended release TAKE 1 TABLET BY MOUTH EVERY 24 HOURS active Not Available Not Available No t Available Boniva active Medicati on ID: [id number] B rand Name: Boniva S end Method: E-Prescr ibed Sub s Allowed: subs OK Medic ationGen ericName : Boniva Not Available Not Available Not Available Enbrel SureClick 50 mg/mL (1 mL) subcutane ous pen injector 05/28 completed Medicati on ID: [id number] D uration Value: 28 Brand Name: Enbrel SureClic k Send Method: E-Prescr ibed Sub s Allowed: subs OK Medic ationGen ericName : Enbrel SureClic k Not Available Not Available Not Available Vitals Date Recorded Body weight Body mass index (BMI) Body height Provider Name and Address Organization Details Last Updated DateTime 03/20/2025 58947.93 g 22.6 kg/m2 167.64 cm Karishma Blanco [facility] 03/20/2025 13:42:06 Social History None recorded. Functional Status None recorded. Mental Status None recorded. Family History Nothing Reported. Medical History No medical history recorded. Gynecological HistoryNo gynecological history recorded. Obstetrics History GPAL:G 0 P 0 0 0 0 Past Encounters Encounter ID Performer Location Encounter Start Date Encounter Closed Date Diagnosis/Indication Diagnosis SNOMED-CT Code Diagnosis ICD10 Code Diagnosis IMO Codes Diagnosis Note [id number] Rodríguez Avalos DO [facility] [address] [place] [address] 03/20/2025 13:23:31 03/20/2025 13:59:41 Chronic sinusitis 13276823 J32.8 71057 Nasal congestion 5501914 0 R09.81 05422 Deviated nasal septum 12 4202169 J34.2 398315 Radicular cyst 94294025 K04.8 7834 Health Concerns Section Related Observation LastModified by Organization Detai ls LastModified Time None Recorded Concern Status LastModified by Organization Details LastModified Time None Recorded Advance Directives Directive None Recorded Payers Insurance Date Sequence Insurance Name Policy Number Policy Nielsen Covered Member ID Nielsen Member ID Guarantor Name 03/20/2025 2 [facility] INDEMNITY PLAN (INDEMNITY) [id number] Danelle Umaña [id number] Danelle Umaña 03/20/2025 1 MEDICARE B-[place]: [employer] Danelle Umaña [id number] Danelle Umaña Notes Date Note Type [...] bilateral maxillary sinusitis. Rodríguez Avalos DO [address], [address], [place] - [facility] 03/20/2025 14:01:15 OBGyn Episode No OBEpisode recorded.
== END 2025-06-15 12:03 | disposition home or self-care (01) ==
LOC: HO.LAB 12:02
PROVIDERS: PCP Family Medicine; Visit Provider Student in an Organized Health Care Education/Training Program
DX: Z79.899 Other long term (current) drug therapy (principal)
CPT/HCPCS: 36415; 80053; 85025; 85652; 86140